=== PATIENT | male | born 1955 | race Caucasian/White ===

== ENCOUNTER 2019-06-04 08:18 | Outpatient (CLI) | payer MEDICARE, OTHER, SELFPAY ==
--- NOTE | 2019-06-04 | MR_ITS ---
WS: [id number] MRI of the lumbar spine with and without IV contrast, 06/04/2019 Clinical Data: POST LAMINECTOMY SYNDROME Comparison: None. Findings: The patient has had a posterior lumbar fusion at L4 and L5. There is a laminectomy at the L4-L5 level . No compression fractures are seen. The disc heights are normal. There is degenerative disc disease at L4-L5. The lower lumbar spinal cord ends posterior to L1. No abnormal contrast enhancement of any structure occurs. There is an incidental right renal cortical cyst. L1-L2: No canal stenosis, disc bulge or foraminal narrowing is seen. L2-L3: No canal stenosis, disc bulge or foraminal narrowing is seen. L3-L4: There is no disc bulge but there is facet joint hypertrophy causing mild foraminal stenosis. L4-L5: No canal stenosis, disc bulge or foraminal narrowing is seen. L5-S1: No canal stenosis, disc bulge or foraminal narrowing is seen. MR/MR lumbar spine wo/w con [id number] Impression: 1. Intact posterior fusion at L4-L5. 2. Minimal degenerative disc at L4-L5. 3. No abnormal contrast enhancement of any structure occurs.
--- NOTE | 2019-06-04 | MR_ITS ---
WS: [id number] MRI of the thoracic spine, 06/04/2019 Clinical Data: POST LAMINECTOMY Comparison: None. Findings: The disc heights are normal. There are no compression fractures. The thoracic spinal cord shows no cy sts, masses or abnormal signal. No evidence of any herniated disc or protrusion is seen. No compressi on fractures are noted. MR/MR thoracic spin wo con* [id number] Impression: Negative MRI of the thoracic spine.
--- NOTE | 2019-06-04 10:27 | XR_ITS ---
WS: [id number] Lumbar spine with flexion, extension, and neutral lateral, 06/04/2019 Clinical Data: POST LAMINECTOMY Comparison: MRI lumbar spine, 06/04/2019 Findings: No compression fractures or subluxation is seen. No disc space narrowing is seen. No limitation of motion or subluxation is seen. The patient is had posterior lumbar fusion at L4-L5 with disc spacers at L4-L5. Minimal anterior oste oarthritic change at L5 is present. The posterior lumbar fusion is intact and shows no change on flex ion or extension. XR/XR lumbar spine f/e only [id number] Impression: 1. Negative for limitation of motion or subluxation on flexion or extension. 2. Intact and stable posterior lumbar fusion at L4-L5
== END 2019-06-04 08:19 | disposition home or self-care (01) ==
LOC: RADWPI 08:26
PROVIDERS: Family Provider Internal Medicine; PCP Internal Medicine; Visit Provider Anesthesiology Pain Medicine
DX: M96.1 Postlaminectomy syndrome, not elsewhere classified (principal); M47.896 Other spondylosis, lumbar region; Z98.1 Arthrodesis status
CPT/HCPCS: 72120; 72146; 72158; A9579

== ENCOUNTER 2021-01-15 13:55 | Outpatient (CLI) | payer MEDICARE, OTHER, SELFPAY ==
[2021-01-15 14:50] LABS: Alanine Aminotransferase 29 U/L (0-41); Albumin Level 4.4 g/dL (3.5-5.2); Alkaline Phosphatase 61 IU/L (40-130); Globulin 2.5 g/dL (1.3-4.6); Total Bilirubin 0.8 mg/dL (0.15-1.2); Total Protein 6.9 g/dL (6.6-8.7)
[2021-01-15 20:16] LABS: Aspartate Amino Transferase 22 U/L (0-40)
== END 2021-01-15 13:56 | disposition home or self-care (01) ==
PROVIDERS: Visit Provider Anesthesiology Pain Medicine
DX: Z79.891 Long term (current) use of opiate analgesic (principal)
CPT/HCPCS: 36415; 80076

== ENCOUNTER 2021-11-27 13:58 | Outpatient (CLI) | payer OTHER, SELFPAY ==
--- NOTE | 2021-11-27 14:09 | CT_ITS ---
WS: [id number] CT HEAD TECHNIQUE: Noncontrast CT of the head obtained from the skullbase to the vertex. CLINICAL INFORMATION: DIZZINESS COMPARISON: CT September 26, 2017 DLP: 1155.[address] scans at [facility] use at least one of these dose optimization techniques: automated e xposure control; mA and/or kV adjustment per patient size (includes targeted exams where dose is matc hed to clinical indication); or iterative reconstruction. FINDINGS: No evidence of intracranial hemorrhage or mass effect. Ventricular system and basal cisterns are bernardo nt. Mild small vessel changes with mild parenchymal volume loss. No extra-axial fluid collections. No evidence of mass or mass effect. Cavernous carotid calcification. Paranasal sinuses and mastoid air cells are well aerated. .Normal visualized soft tissues. CT/CT head wo con* [id number] IMPRESSION: 1. No evidence of intracranial hemorrhage or mass effect. 2. Mild small vessel changes. Mild parenchymal volume loss. 3. No acute intracranial findings.
--- NOTE | 2021-11-27 14:09 | CT_ITS ---
WS: [id number] CTA THORACIC AORTA WITH AND WITHOUT CONTRAST. HISTORY: FOLLOW-UP THORACIC ANEURYSM TECHNIQUE: CT imaging of the thorax is performed with and without contrast. After noncontrast imaging is performed, CT angiogram is performed during injection of Omnipaque 350; 95 mL IV.. Sagittal and c oronal reconstructions, sagittal and coronal MIP imaging is submitted. All CT scans at [facility] use at least one of these dose optimization techniques: automated exposure control; mA and/or kV adjustment per patient size (includes targeted exams where dose is matched to clinical indication); or iterative reconstruction. DLP: 1306.54 mGy.cm COMPARISON: None available. Normal size thoracic aorta. Ascending aorta measures 3.2 cm. Very mild atherosclerotic plaque through the arch. Normal caliber descending aorta with a few scattered calcified plaques and intimal thicken ing. Normal appearance of the great vessels. LEFT common carotid artery arises from the base of the i nnominate. Normal size pulmonary artery. No pulmonary filling defects. Heart size is normal. No peric ardial or pleural effusions. 5 mm noncalcified nodule RIGHT upper lobe. No mediastinal or hilar adenopathy. Moderate size hiatal hernia. No adrenal mass. Visualized liver is negative. Degenerative disc disease at T7-8. Sclerotic changes within the adjacent vertebral body en dplates. CT/CT angio chest [id number] IMPRESSION: 1. No thoracic aortic aneurysm. 2. Normal size pulmonary artery. 3. Noncalcified 5 mm nodule RIGHT upper lobe. Recommend 12 month follow-up CT evaluation.
[2021-11-27 15:16] LABS: Blood Urea Nitrogen 20 mg/dL (8-23)
[2021-11-27] MEDS: iohexol 350 mg/mL 100 mL Btl IV (15:21)
--- NOTE | 2021-11-27 15:45 | USCV_ITS ---
Leon Tracey Age: 66 Gender: M : 1955 Exam Date: 11/27/2021 15:28 Ordering Phys: Shaye Siddiqui MD Technologist: CAROL Exam Location: [facility] [place] Indication: DIZZINESS Risk Factors: Previous Vascular Surgery: Right Brachial BP: / Left Brachial BP: / Right Left Velocity (cm/s) Spectral Plaque Velocity (cm/s) Spectral Plaque Syst/Diast Broadening Syst/Diast Broadening 57.20/ 20.40 Prox CCA / 93.20/ 31.80 Mid CCA 73.00 / 17.90 64.40/ 19.70 Distal CCA 66.00 / 24.90 77.40/ 21.70 Prox ICA 64.80 / 27.70 68.50/ 21.50 Mid ICA 48.60 / 25.10 46.90/ 18.40 Distal ICA 46.50 / 22.00 103.30 ECA 51.70 0.83 ICA/CCA 1.23 Vertebral 53.80/ 14.50 cm/s 43.80/ 16.00 cm/s Subclavian 143.3 103.0 0 0 CONCLUSIONS Right ICA stenosis <50%. Mild atheromatous plaque right carotid bulb/ICA. Left ICA stenosis <50%. Mild atheromatous plaque left carotid bulb/ICA. Normal antegrade Doppler flow noted in the right vertebral artery. Normal antegrade Doppler flow noted in the left vertebral artery. Nima Sosa MD (Electronically Signed) Final Date: 28 November 2021 13:21 S
== END 2021-11-27 13:59 | disposition home or self-care (01) ==
LOC: RAD 13:59
PROVIDERS: PCP Family Medicine; Visit Provider Family Medicine
DX: R42 Dizziness and giddiness (principal); I65.23 Occlusion and stenosis of bilateral carotid arteries
CPT/HCPCS: 70450; 71275; 82565; 84520; 93880

== ENCOUNTER 2022-07-12 16:46 | Outpatient (CLI) | payer OTHER, SELFPAY ==
--- NOTE | 2022-07-12 17:09 | CT_ITS ---
WS: [id number] CT chest w con* [id number] HISTORY: F/U LUNG NODULE TECHNIQUE: Axial imaging performed through the thorax. Coronal and sagittal reformats are submitted. All CT scans at [facility] use at least one of these dose optimization techniques: automated exposure control; mA and/or kV adjustment per patient size (includes targeted exams where dose is mat ched to clinical indication); or iterative reconstruction. CONTRAST: Omnipaque 350; 100 mL IV. DLP: 466.59 mGy.cm COMPARISON: 11/27/2021 Lungs and central airway: Mild hyperexpansion. No change in the 5 mm noncalcified RIGHT upper lobe pu lmonary nodule since 11/27/2021. No new pulmonary nodule or mass. No pneumonia. Pleura: Normal. No pleural effusion. Heart and pericardium: Normal size heart with no pericardial effusion. Mediastinum and amber: No mediastinum or hilar adenopathy. Vessels: Mild atherosclerosis aorta. No aneurysm. Normal size pulmonary artery. Chest wall and lower neck: No soft tissue masses. Upper abdomen: Small hiatal hernia. No adrenal mass. Osseous structures: Prior RIGHT shoulder arthroplasty. Moderate degenerative disc disease in the mid thoracic spine. CT/CT chest w con* [id number] IMPRESSION: 1. No change 5 mm noncalcified RIGHT upper lobe pulmonary nodule. Long-term ocasio rveillance recommended. Follow-up chest CT in 12 months. 2. Chronic emphysema. 3. Small hiatal hernia.
[2022-07-12 17:34] LABS: Blood Urea Nitrogen 17 mg/dL (8-23)
[2022-07-12 17:35] LABS: Glomerular Filtration Rate 60.8 mL/min (90-130)
[2022-07-12] MEDS: iohexol 350 mg/mL 100 mL Btl IV (17:45)
== END 2022-07-12 16:47 | disposition home or self-care (01) ==
LOC: RAD 16:52
PROVIDERS: PCP Family Medicine; Visit Provider Family Medicine
DX: R91.8 Other nonspecific abnormal finding of lung field (principal); J43.9 Emphysema, unspecified; K44.9 Diaphragmatic hernia without obstruction or gangrene
CPT/HCPCS: 71260; 82565; 84520; Q9967

== ENCOUNTER 2022-08-02 17:56 | Emergency (ER) | payer OTHER, SELFPAY ==
[2022-08-02 18:01] VITALS: BP 167/80; PULSE 70; RESP 14; TEMP 36.6; O2SAT 97; BMI 37.3
--- NOTE | 2022-08-02 18:02 | XRR_ITS ---
PROCEDURE INFORMATION: Exam: XR Chest Exam date and time: 08/02/2022 6:51 PM Age: 67 years old Clinical indication: Pain; Left-sided; Additional info: Cp TECHNIQUE: Imaging protocol: Radiologic exam of the chest. Views: 1 view. COMPARISON: CT chest w con* [id number] 07/12/2022 5:36 PM FINDINGS: Lungs: Unremarkable. No consolidation. Unchanged linear scarring/atelectasis left lung base. Pleural spaces: Unremarkable. No pleural effusion. No pneumothorax. Heart/Mediastinum: Unremarkable. No cardiomegaly. Bones/joints: No acute abnormality. Postoperative changes bilateral shoulders are noted. XR/XR chest 1V portable [id number] IMPRESSION: No acute findings.
[2022-08-02 18:20] LABS: Basophils % 0.3 %; Eosinophils # 0.3 10^3/uL (0.0-0.8); Hematocrit 47.9 % (42.0-52.0); Hemoglobin 16.2 g/dL (11.7-16.6); Lymphocytes # 1.9 10^3/uL (0.8-4.8); Lymphocytes % 29.6 %; Mean Corpuscular HGB Conc 33.8 g/dL (30.0-36.0); Mean Corpuscular Hemoglobin 31.2 pg (28.0-34.0); Mean Corpuscular Volume 92.3 fl (80-94); Mean Platelet Volume 9.7 fL (7.4-10.4); Monocytes # 0.5 10^3/uL (0.2-0.9); Monocytes % 7.6 %; Neutrophils # 3.73 10^3/uL (1.8-7.7); Neutrophils % 58.2 %; Nucleated Red Blood Cells % 0 %; Platelet Count 249 10^3/cmm (130-400); Red Blood Count 5.19 10^6/uL (4.1-5.3); Red Cell Distribution Width 11.7 % (12.1-15.1); White Blood Count 6.4 10^3/uL (4.0-10.0)
[2022-08-02] MEDS: aspirin 81 mg Chew Tablet 324 MG PO (18:24)
--- NOTE | 2022-08-02 18:28 | ED_ITS ---
HPI - Chest Pain General: Chief Complaint: Chest Pain Stated Complaint: chest pain Time Seen by Provider: 08/02/22 18:04 Source: patient Mode of arrival: ambulatory Limitations: no limitations History of Present Illness: 67-year-old male has a history of chronic pain he states been having left-sided chest and back pain for last 2 days he states its been chronic in nature and very sharp states it is worse with movement and palpation he denies any shortness of breath denies any nausea denies any diaphoresis states it is improved with rest. No history of heart disease. Associated symptoms: Deny abdominal pain, dyspnea, fever(s), nausea or vomiting Review of Systems Const: Denies: fever(s), chills, body aches or change in appetite Eyes: Denies: blurry vision or eye discomfort ENMT: Denies: throat pain or dental pain Card: Reports: chest pain Resp: Denies: dyspnea GI: Denies: abdominal pain, nausea, vomiting or diarrhea : Denies: dysuria Musc: Denies: neck pain or back pain Skin/Breast: Denies: rash Neuro: Denies: headache(s) Psych: Denies: depression Guille/Lymph: Denies: easy bruising All/Imm: Denies: urticaria PFSH ED PFSH: Medical History (Updated 08/02/22 @ 19:14 by Edwin Black MD) No pertinent past medical history Social History (Updated 08/02/22 @ 18:30 by Edwin Black MD) Substance/Drug Use: never Physical Exam Const: COMMON NORMALS: no acute distress, patient oriented x3 and healthy appearing HENMT: COMMON NORMALS: normocephalic and atraumatic HEAD & SCALP: normocephalic and atraumatic Eye: COMMON NORMALS: conjunctivae normal CONJUNCTIVA: Yes conjunctivae normal Neck/C-Spine: COMMON NORMALS: full ROM and supple Chest: COMMONS NORMALS: normal inspection of the chest OTHER: point tender over left chest reproduces pain Resp: COMMON NORMALS: normal respiratory effort, No retractions, No use of accessory muscles and clear to auscultation bilaterally AUSCULTATION: clear to auscultation bilaterally Cardio: COMMON NORMALS: regular rate, regular rhythm and No murmurs present (Cardio) RATE: regular rate RHYTHM: regular rhythm GI: COMMON NORMALS: Normal to inspection, nondistended, normoactive bowel sounds present, Soft to palpation, non-tender and no masses PALPATION: Yes Soft to palpation Extremity: COMMON NORMALS: normal to inspection and full ROM Neuro: COMMON NORMALS: patient oriented x3, moves all extremities and no focal motor deficits Psych: COMMON NORMALS: mental status grossly normal, Normal thought process present and cooperative THOUGHT PROCESS: Normal thought process present Skin: COMMON NORMALS: no rashes or lesions noted and no wounds GENERAL SKIN EXAM: no rashes or lesions noted Course Vital Signs: Vital signs: Vital Signs Temperature 98 F 08/02/22 18:01 Pulse Rate 70 08/02/22 18:38 Respiratory Rate 18 08/02/22 18:38 Blood Pressure 179/111 08/02/22 18:38 Pulse Oximetry 96 08/02/22 18:38 Oxygen Delivery Me thod Room Air 08/02/22 18:38 MDM - Chest Pain Medical Decision Making Patient presents here with chest wall pain likely is point tender on exam her troponin is normal no signs acute coronary syndrome no signs of pulmonary embolism or aortic dissection he is stable for discharge she is to follow-up with PCP and return if worsening. Differential Diagnosis Unlikely acute massive pulmonary embolism or acute myocardial infarction Lab Data 08/02/22 18:12 08/02/22 18:12 Laboratory Results WBC 6.4 10^3/uL (4.0-10.0) 08/02/22 18:12 RBC 5.19 10^6/uL (4.1-5.3) 08/02/22 18:12 Hgb 16.2 g/dL (11.7-16.6) 08/02/22 18:12 Hct 47.9 % (42.0-52.0) 08/02/22 18:12 MCV 92.3 fl (80-94) 08/02/22 18:12 MCH 31.2 pg (28.0-34.0) 08/02/22 18:12 MCHC 33.8 g/dL (30.0-36.0) 08/02/22 18:12 RDW 11.7 % (12.1-15.1) L 08/02/22 18:12 Plt Count 249 10^3/cmm (130-400) 08/02/22 18:12 MPV 9.7 fL (7.4-10.4) 08/02/22 18:12 Neut % (Auto) 58.2 % 08/02/22 18:12 Lymph % (Auto) 29.6 % 08/02/22 18:12 [place] % (Auto) 7.6 % 08/02/22 18:12 Eos % (Auto) 4.0 % 08/02/22 18:12 Baso % (Auto) 0.3 % 08/02/22 18:12 Neut # (Auto) 3.73 10^3/uL (1.8-7.7) 08/02/22 18:12 Lymph # (Auto) 1.9 10^3/uL (0.8-4.8) 08/02/22 18:12 [place] # (Auto) 0.5 10^3/uL (0.2-0.9) 08/02/22 18:12 Eos # (Auto) 0.3 10^3/uL (0.0-0.8) 08/02/22 18:12 Baso # (Auto) 0.0 10^3/uL (0.0-0.1) 08/02/22 18:12 Nucleated RBC % (auto) 0 % 08/02/22 18:12 Nucleated RBCs # 0.0 /100WBC 08/02/22 18:12 Sodium 141 mmol/L (136-145) 08/02/22 18:12 Potassium 3.9 mmol/L (3.5-5.1) 08/02/22 18:12 Chloride 104 mmol/L (98-107) 08/02/22 18:12 Carbon Dioxide 24 mmol/L (22-29) 08/02/22 18:12 Anion Gap 16.9 (5-19) 08/02/22 18:12 BUN 16 mg/dL (8-23) 08/02/22 18:12 Creatinine 0.9 mg/dL (0.7-1.2) 08/02/22 18:12 GFR Calculation 84.7 mL/min (90-130) L 08/02/22 18:12 Glucose 122 mg/dL (65-115) H 08/02/22 18:12 Calculated Osmolality 294 mOsm/kg (285-295) 08/02/22 18:12 Calcium 8.6 mg/dL (8.5-10.5) 08/02/22 18:12 Total Bilirubin 0.4 mg/dL (0.15-1.2) 08/02/22 18:12 AST 20 U/L (0-40) 08/02/22 18:12 ALT 28 U/L (0-41) 08/02/22 18:12 Alkaline Phosphatase 77 U/L (40-130) 08/02/22 18:12 Troponin T Baseline 6 ng/L (0-15) 08/02/22 18:12 Total Protein 7.1 g/dL (6.6-8.7) 08/02/22 18:12 Albumin 4.5 g/dL (3.5-5.2) 08/02/22 18:12 Globulin 2.6 g/dL (1.3-4.6) 08/02/22 18:12 EKG Data EKG 1: I personally reviewed and interpreted this EKG as follows: EKG interpretation date: 08/02/22 EKG interpretation time: 18:28 Interpretation: nsr hr [address] or t wave abnormalities q rs 100 qtc 410 Discharge Plan Discharge Patient Disposition: Home Clinical Impression: Chest pain Prescriptions: New methocarbamol 750 mg tablet 750 mg PO Q6H PRN (Reason: spasms) Qty: 20 0RF Naprosyn 500 mg tablet 500 mg PO BID PRN (Reason: pain) Qty: 20 0RF Discharge Orders: Discharge ED (Routine); Ordered 08/02/22 Ordered By: Edwin Black Referrals: Shaye Siddiqui MD [Primary Care Provider] - 1-3 days Discharge Diet: Advance as tolerated Discharge Activity: Resume usual activity Patient Instructions: Chest Pain (ED) Coding Level of Care Code 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
--- NOTE | 2022-08-02 18:28 | ECG_ITS ---
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 Measurements Intervals [place] Rate: 69 P: 30 NM: 180 QRS: 1 QRSD: 100 T: -15 QT: 391 QTc: 420 Interpretive Statements SINUS RHYTHM MODERATE ST DEPRESSION [0.05+ mV ST DEPRESSION] No previous ECG available for comparison Electronically Signed On 08-03-2022 16:35:03 CDT by Barbie Doyle M.D. [email or web address] medical [id number]
[2022-08-02] MEDS: ondansetron 2 mg/ML SDV 2 mL 4 MG IVP (18:30)
[2022-08-02] MEDS: morphine 4 mg/mL SDV 1 mL IVP (18:31)
[2022-08-02 18:35] VITALS: BP 179/111; PULSE 66; RESP 17; O2SAT 97
[2022-08-02 18:38] VITALS: BP 179/111; PULSE 70; RESP 18; O2SAT 96
[2022-08-02 18:46] LABS: Alanine Aminotransferase 28 U/L (0-41); Albumin Level 4.5 g/dL (3.5-5.2); Alkaline Phosphatase 77 U/L (40-130); Anion Gap 16.9 (5-19); Aspartate Amino Transferase 20 U/L (0-40); Blood Urea Nitrogen 16 mg/dL (8-23); Calcium 8.6 mg/dL (8.5-10.5); Carbon Dioxide 24 mmol/L (22-29); Chloride 104 mmol/L (98-107); Globulin 2.6 g/dL (1.3-4.6); Glomerular Filtration Rate 84.7 mL/min (90-130); Glucose 122 mg/dL (65-115); Osmolality Calculated 294 mOsm/kg (285-295); Potassium 3.9 mmol/L (3.5-5.1); Sodium 141 mmol/L (136-145); Total Bilirubin 0.4 mg/dL (0.15-1.2); Total Protein 7.1 g/dL (6.6-8.7)
[2022-08-02 18:48] LABS: Troponin(5th) Baseline 6 ng/L (0-15)
[2022-08-02 19:29] VITALS: BP 146/87; PULSE 65; RESP 20; O2SAT 90
== END 2022-08-02 19:30 | disposition home or self-care (01) ==
PROVIDERS: Emergency Provider Emergency Medicine; PCP Family Medicine
DX: R07.9 Chest pain, unspecified (principal)
CPT/HCPCS: 36415; 71045; 80053; 84484; 85025; 93005; 96374; 96375; 99285; J2270; J2405

== ENCOUNTER 2022-12-20 14:33 | Outpatient (CLI) | payer OTHER, SELFPAY ==
--- NOTE | 2022-12-20 | USCV_ITS ---
Leon Tracey Age: 67 Gender: M : 1955 Exam Date: 12/20/2022 14:57 Ordering Phys: Shaye Siddiqui MD Technologist: CAROL Exam Location: [facility] [place] Indication: Stenosis Risk Factors: Previous Vascular Surgery: Right Brachial BP: / Left Brachial BP: / Right Left Velocity (cm/s) Spectral Plaque Velocity (cm/s) Spectral Plaque Syst/Diast Broadening Syst/Diast Broadening 71.70/ 20.90 Prox CCA 99.40 / 28.00 71.70/ 22.10 Mid CCA 82.30 / 23.30 69.70/ 15.60 Distal CCA 102.50/ 24.30 56.90/ 15.60 Prox ICA 39.40 / 9.00 63.10/ 13.40 Mid ICA 56.70 / 21.40 46.90/ 18.40 Distal ICA 46.00 / 17.60 67.80 ECA 72.50 0.88 ICA/CCA 0.55 Antegrade Vertebral Antegrade 51.30/ 15.80 cm/s 40.10/ 10.10 cm/s Tri Subclavian Tri 160.0 117.0 0 0 FINDINGS Comparison:. 11/27/21 No significant elevation of systolic or diastolic velocities. Waveforms are normal. Minimal amount of calcified plaque or intimal thickening identified. CONCLUSIONS No change seen from prior study. Bilateral ICA stenosis less than 50%. Dr. Flores Miranda DO (Electronically Signed) Final Date: 23 December 2022 07:46 S
== END 2022-12-20 14:34 | disposition home or self-care (01) ==
LOC: RAD 14:35
PROVIDERS: PCP Family Medicine; Visit Provider Family Medicine
DX: I65.23 Occlusion and stenosis of bilateral carotid arteries (principal)
CPT/HCPCS: 93880

== ENCOUNTER 2023-02-20 08:25 | Outpatient (CLI) | payer OTHER, SELFPAY ==
--- NOTE | 2023-02-20 | MR_ITS ---
WS: [id number] MRI LUMBAR SPINE WITH AND WITHOUT CONTRAST. HISTORY: VERTEBROGENIC LOW BACK PAIN, pain down LEFT leg and hip. COMPARISON: 06/04/2019 TECHNIQUE: Sagittal and axial multisequence imaging is submitted. Postcontrast imaging 20 mL IV Multi Lee. Prior posterior lumbar fusion at L4-5. Alignment is normal. Disc spaces are mildly desiccated. Interbody spacer at L4-5. Conus terminates normally at L1-2 disc level. L1-L2: Mild facet arthritis. Very minimal foraminal narrowing. L2-L3: No stenosis. Mild facet arthritis. L3-L4: Central canal encroachment by ligamentum flavum and facet disease and mild foraminal stenosis. Mild central, bilateral subarticular recess and foraminal stenosis. Greatest encroachment is slight narrowing of the LEFT subarticular recess with mild disc contact on the LEFT traversing L4 nerve root . L4-L5: Mild central canal stenosis with facet joint arthritis. Mild osteophytic ridging. There is mil d to moderate bilateral foraminal stenosis with disc and/or osteophyte contact on the exiting L4 nerv e roots. There is also mild contact and encroachment upon the traversing L5 nerve roots. Tiny central disc protrusion is likely. L5-S1: Mild facet and ligamentum flavum arthritis. Slightly greater narrowing of the LEFT subarticula r recess. Mild RIGHT and mild to moderate LEFT foraminal stenosis. No discitis or osteomyelitis. IMPRESSION: 1. Prior posterior lumbar fusion with interbody spacer at L4-5. 2. L3-4: Mild central, bilateral subarticular recess and foraminal stenosis. Slightly greater encroac hment and narrowing of the LEFT subarticular recess with disc minimally contacting the LEFT traversin g L4 nerve root. 3. L4-5: Mild to moderate bilateral foraminal stenosis with disc and/or osteophyte contacting the exi ting L4 nerve roots. Mild contact and encroachment upon the traversing L5 nerve roots. Mild central s tenosis. 4. L5-S1: Mild to moderate LEFT foraminal stenosis and mild RIGHT foraminal stenosis. 5. No discitis or osteomyelitis.
--- NOTE | 2023-02-20 | MR_ITS ---
WS: [id number] MRI THORACIC SPINE noncontrast. HISTORY: THORACIC SPINE PAIN, chronic mid back pain. Pain down LEFT leg. COMPARISON: 06/04/2019 TECHNIQUE: Multiplanar sequences are performed in sagittal and axial planes. Tractor Engine Assembler survey reveals osteophyte disease encroaching upon the ventral cervical cord at C3-4. Disc spac es are narrowed in the cervical spine. Multiple small hemangiomas within the vertebral bodies. Significant progression of degenerative mark es in the vertebral bodies consistent with fatty replacement T7 and T8. There is disc encroachment up on the thoracic cord which will be defined at individual levels as described below. Disc spaces are n arrowed throughout the thoracic spine. There is been a progression of degenerative spondylitic change s. No cord signal abnormality appreciated. No syrinx. T1-2: Normal. T2-3: Bilateral facet arthritis with moderate foraminal stenosis. T3-4: Advanced facet arthritis with moderate foraminal stenosis. T4-5: Moderate facet arthritis with mild stenosis. T5-6: Mild foraminal stenosis and facet arthritis. T6-7: Small central disc protrusion does not contact the cord. Moderate bilateral facet arthritis and foraminal stenosis. T7-8: Osteophytic ridging, annular disc bulging and marked facet arthritis. Mild central with moderat e to severe foraminal stenosis. T8-9: Diffuse annular disc bulging with a central disc protrusion effacing ventral CSF. Severe ligame ntum flavum and facet arthritis. Severe bilateral foraminal stenosis with mild central stenosis. T9-10: Mild annular disc bulging with severe facet arthritis and foraminal stenosis. T10-11: Mild bilateral facet arthritis and stenosis. T11-12: Mild facet arthritis and mild foraminal stenosis. IMPRESSION: 1. Significant progression of degenerative spondylitic disease and stenoses in the thoracic spine sin ce 06/04/2019. 2. Progression of degenerative disc disease is most significant at T7-8 and T8-9 with fatty marrow re placement in T7 and T8. 3. T6-7: Shallow central disc protrusion nearly contacts the cord. Moderate bilateral facet arthritis and foraminal stenosis. 4. T7-8: Mild central with moderate to severe bilateral foraminal stenosis. 5. T8-9: Severe bilateral foraminal stenosis with mild central stenosis. Advanced facet disease. 6. T9-10 severe bilateral facet joint arthritis and foraminal stenosis. 7. Additional level of mild to moderate facet joint arthritis and foraminal stenoses as above.
[2023-02-20] MEDS: gadobenate dimeglumine 20 mL vial IV (10:16)
== END 2023-02-20 08:26 | disposition home or self-care (01) ==
LOC: RAD 08:25
PROVIDERS: PCP Family Medicine; Visit Provider Anesthesiology Pain Medicine
DX: M48.061 Spinal stenosis, lumbar region without neurogenic claudication (principal); Z98.1 Arthrodesis status
CPT/HCPCS: 72146; 72158; A9577

== ENCOUNTER → 2023-03-10 10:20 | Outpatient (BNVA) | payer OTHER, SELFPAY | PROVIDERS: PCP Family Medicine; Visit Provider Podiatrist Foot & Ankle Surgery | DX: M25.372 Other instability, left ankle; M19.172 Post-traumatic osteoarthritis, left ankle and foot; Q66.72 Congenital pes cavus, left foot; Q66.71 Congenital pes cavus, right foot; Q66.89 Other specified congenital deformities of feet; L60.3 Nail dystrophy; L85.3 Xerosis cutis; Q66.221 Congenital metatarsus adductus, right foot; Q66.222 Congenital metatarsus adductus, left foot | CPT/HCPCS: 73630; 99204 ==

== ENCOUNTER → 2023-05-08 10:54 | Outpatient (BNVA) | payer OTHER, SELFPAY | PROVIDERS: PCP Family Medicine; Visit Provider Podiatrist Foot & Ankle Surgery | DX: L60.0 Ingrowing nail (principal) | CPT/HCPCS: 11750 ==

== ENCOUNTER → 2023-05-22 10:25 | Outpatient (BNVA) | payer OTHER, SELFPAY | PROVIDERS: PCP Family Medicine; Visit Provider Podiatrist Foot & Ankle Surgery | DX: L60.0 Ingrowing nail (principal) | CPT/HCPCS: 99213 ==

== ENCOUNTER 2023-05-28 19:10 | Emergency (ER) | payer OTHER, SELFPAY ==
[2023-05-28 19:22] VITALS: BP 214/89; PULSE 82; RESP 14; TEMP 36.7; O2SAT 98
--- NOTE | 2023-05-28 20:00 | CTR_ITS ---
PROCEDURE INFORMATION: Exam: CT Chest Without Contrast; Diagnostic Exam date and time: 05/28/2023 8:12 PM Age: 68 years old Clinical indication: Abdominal tenderness; Cough; Prior surgery; Surgery date: 6+ months; Surgery type: RT shoulder. L-spine; Additional info: Cough abdominal pain TECHNIQUE: Imaging protocol: Diagnostic computed tomography of the chest without contrast. Sagittal and coronal reformatted images were created and reviewed. Radiation optimization: All CT scans at this facility use at least one of these dose optimization techniques: automated exposure control; mA and/or kV adjustment per patient size (includes targeted exams where dose is matched to clinical indication); or iterative reconstruction. COMPARISON: 1. CT chest w con* [id number] 07/12/2022 5:[address] angio chest [id number] 11/27/2021 2:54 PM RADIATION DOSE METRICS: Total DLP (mGy-cm): 1286 FINDINGS: Limitations: Evaluation of the mediastinum and vasculature is limited without intravenous contrast. Trachea: Tracheobronchial structures are patent. Lungs: Lungs are clear bilaterally. Mild centrilobular emphysematous changes in the upper lobes. Noncalcified nodule in the right upper lobe with an average measurement of 5 mm, stable compared with 11/27/2021 (series 3, image 23). Pleural spaces: No pneumothorax. No pleural effusion. Heart: The heart is normal in size. Coronary arteries: Stable mild atherosclerotic calcification in the coronary arteries. Esophagus: The esophagus is unremarkable. Mediastinal space: No mediastinal hematoma. No pneumomediastinum. Lymph nodes: No lymphadenopathy. Vasculature: Stable mild atherosclerotic changes in the visualized arteries. No evidence for aortic aneurysm. Pulmonary arteries are unremarkable. Pulmonary veins are unremarkable. Bones/joints: Patient has had a right shoulder hemiarthroplasty. [id number] degenerative changes of the left shoulder. Patient has had a previous left rotator cuff repair. [id number]-[id number] multilevel degenerative changes in the visualized spine. Soft tissues: No acute abnormality in the extrathoracic soft tissues. which no further follow-up is recommended. (Reference: Zoë) 3. Incidental/nonacute findings are listed in the report. COMMENTS: The presence of pulmonary emphysema on CT is an independent risk factor for lung cancer. In the absence of a history or active diagnosis of lung cancer, it is recommended that this patient with emphysema be evaluated for enrollment in a low dose CT lung cancer screening program. REFERENCES: Zoë Francis et al. Guidelines for Management of Incidental Pulmonary Nodules Detected on CT Images: From the Fleischner Society 2017. Radiology. 2017;284(1):228-243. PROCEDURE INFORMATION: Exam: CT Abdomen And Pelvis Without Contrast Exam date and time: 05/28/2023 8:12 PM Age: 68 years old Clinical indication: Abdominal tenderness; Cough; Prior surgery; Surgery date: 6+ months; Surgery type: RT shoulder. L-spine; Additional info: Cough abdominal pain TECHNIQUE: Imaging protocol: Computed tomography of the abdomen and pelvis without contrast. Sagittal and coronal reformatted images were created and reviewed. Radiation optimization: All CT scans at this facility use at least one of these dose optimization techniques: automated exposure control; mA and/or kV adjustment per patient size (includes targeted exams where dose is matched to clinical indication); or iterative reconstruction. COMPARISON: No relevant prior studies available. RADIATION DOSE METRICS: Total DLP (mGy-cm): 1286 FINDINGS: Limitations: Evaluation of solid organs and vasculature is limited without intravenous contrast. Liver: The liver is unremarkable. Gallbladder and bile ducts: The gallbladder is unremarkable. No biliary ductal dilatation. Pancreas: The pancreas is unremarkable. No pancreatic ductal dilatation. Spleen: The spleen is unremarkable. Adrenal glands: The right and left adrenal glands are unremarkable. Kidneys and ureters: The right and left kidneys are unremarkable. The right and left ureters are unremarkable. Stomach and bowel: Numerous diverticula in the sigmoid colon. No evidence for diverticulitis. No acute abnormality in the small bowel. No acute abnormality in the stomach. Appendix: The appendix is visualized and is unremarkable. No findings to suggest acute appendicitis. Intraperitoneal space: No free intraperitoneal air. No ascites. No loculated fluid collections to suggest an abscess. Vasculature: Mild atherosclerotic changes in the visualized arteries. No evidence for aortic aneurysm. Lymph nodes: No lymphadenopathy. Urinary bladder: The bladder is unremarkable. Reproductive: Unremarkable as visualized. Bones/joints: Mild degenerative changes at both the right and left hips. Mild degenerative changes of the right and left sacroiliac joints. Bone island in the left femoral head. The patient has had a previous L4-L5 fusion and L4 laminectomy. There is lucency around the right L5 transpedicular screw concerning for loosening. Multilevel foraminal stenosis of varying severity in the lumbar spine. Soft tissues: No acute abnormality in the extra-abdominal soft tissues. CT/[place] [id number] IMPRESSION: 1. No acute cardiopulmonary process. 2. Noncalcified nodule in the right upper lobe with an average measurement of 5 mm, stable compared with 11/27/2021. Stable pulmonary nodule(s) for IMPRESSION: 1. No acute abnormality in the abdomen or pelvis. 2. Sigmoid diverticulosis. No evidence for diverticulitis. 3. The patient has had a previous L4-L5 fusion and L4 laminectomy. There is lucency around the right L5 transpedicular screw concerning for loosening. Recommend clinical correlation. 4. Incidental/nonacute findings are listed in the report.
--- NOTE | 2023-05-28 20:00 | XRR_ITS ---
PROCEDURE INFORMATION: Exam: XR Chest Exam date and time: 05/28/2023 8:56 PM Age: 68 years old Clinical indication: Cough TECHNIQUE: Imaging protocol: Radiologic exam of the chest. Views: 1 view. COMPARISON: [place] [id number] 05/28/2023 8:12 PM FINDINGS: Lungs: Lungs are clear bilaterally. Pleural spaces: No pleural effusion. No pneumothorax. Heart/Mediastinum: Stable mild enlargement of the cardiac silhouette. Mediastinal contours are unremarkable. Bones/joints: Patient has had a previous right shoulder hemiarthroplasty. XR/XR chest 1V portable [id number] IMPRESSION: 1. No acute cardiopulmonary process. 2. Incidental/nonacute findings are listed in the report.
[2023-05-28 20:25] VITALS: PULSE 84; O2SAT 95
[2023-05-28 20:27] LABS: Basophils % 0.4 %; Eosinophils # 0.3 10^3/uL (0.0-0.8); Eosinophils % 4.6 %; Hematocrit 44.3 % (37-53); Lymphocytes # 1.9 10^3/uL (0.8-4.8); Lymphocytes % 35.9 %; Mean Corpuscular HGB Conc 34.8 g/dL (30-55); Mean Corpuscular Hemoglobin 31.6 pg (27-33); Mean Corpuscular Volume 90.8 fl (82-101); Mean Platelet Volume 9.4 fL (7.4-10.4); Monocytes # 0.6 10^3/uL (0.2-0.9); Monocytes % 10.4 %; Neutrophils # 2.59 10^3/uL (1.8-7.7); Neutrophils % 48.1 %; Nucleated Red Blood Cells % 0 %; Platelet Count 256 10^3/cmm (157-399); Red Blood Count 4.88 10^6/uL (3.85-5.65); Red Cell Distribution Width 11.8 % (12.1-15.1); White Blood Count 5.38 10^3/uL (3.29-11.43)
[2023-05-28 20:29] LABS: Alanine Aminotransferase 30 U/L (0-41); Albumin Level 4.6 g/dL (3.5-5.2); Alkaline Phosphatase 67 U/L (40-130); Anion Gap 14.2 (5-19); Aspartate Amino Transferase 21 U/L (0-40); Blood Urea Nitrogen 19 mg/dL (8-23); Calcium 9.2 mg/dL (8.5-10.5); Carbon Dioxide 25 mmol/L (22-29); Chloride 105 mmol/L (98-107); Globulin 2.7 g/dL (1.3-4.6); Glomerular Filtration Rate 84.4 mL/min (90-130); Glucose 94 mg/dL (65-115); Lipase 28 U/L (13-60); Osmolality Calculated 292 mOsm/kg (285-295); Potassium 4.2 mmol/L (3.5-5.1); Sodium 140 mmol/L (136-145); Total Bilirubin 0.6 mg/dL (0.15-1.2); Total Protein 7.3 g/dL (6.6-8.7)
[2023-05-28 20:31] LABS: Add Urine Culture? No; Add Urine Microscopic? YES; Bacteria Urine TRACE /hpf; Bilirubin Urine Neg (Negative); Blood Urine Neg (Negative); Glucose Urine UA Norm (Normal); Ketones Urine Negative (Negative); Leukocyte Esterase Urine Negative (Negative); Mucus Urine TRACE /hpf; Nitrate Urine Negative (Negative); Protein Urine Trace (Negative); Specific Gravity, Urine 1.015 (1.005-1.030); Urine Appearance Clear (CLEAR); Urine Color Yellow (Yellow); Urobilinogen Urine Neg (Negative); pH Urine 6 (5-7)
--- NOTE | 2023-05-28 20:47 | W.ED.ABDPA2 ---
HPI - Abdominal Pain General: Chief Complaint: Abdominal Pain Stated Complaint: pain pressure under right breast has anyorism Time Seen by Provider: 05/28/23 19:59 History of Present Illness: 68-year-old male male with a history of chronic pain who presents with 6-month history of progressively worsening left upper quadrant abdominal pain. Pain is worse when he tries to lay down. He states he has tried taking antacids without improvement. It is not affected by eating. Is not affected by taking deep breaths or exertion. He states he is on hydromorphone and oxycodone which she alternates and that controls this pain but he keeps getting this abdominal pain back. He has a known abdominal aortic aneurysm. [facility] for [facility] to be [facility]. Associated Symptoms: Reports diarrhea (Chronic); Denies chills, constipation, fever(s), nausea and vomiting Review of Systems Const: Denies: fever(s), chills or body aches Card: Denies: chest pain or palpitations Resp: Reports: dyspnea (Chronic due to COPD) and wheezing (Chronic); Denies: productive cough GI: Reports: abdominal pain and diarrhea (Chronic); Denies: nausea, vomiting or constipation Musc: Reports: back pain, extremity pain and joint pain PFS ED PFSH: Medical History No pertinent past medical history Social History Substance/Drug Use: never Physical Exam Const: OTHER: Well-developed well-nourished male in no acute distress HENMT: OTHER: Mucous membranes are moist Eye: OTHER: Pupils are equal, no scleral icterus, conjunctiva normal Neck/C-Spine: OTHER: Trachea is midline Chest: OTHER: No chest wall tenderness Resp: OTHER: Lungs are clear bilaterally Cardio: OTHER: Heart regular rate and rhythm GI: OTHER: Abdomen soft, mild tenderness in the left upper quadrant, no rebound or guarding. No pulsatile aortic mass palpable Extremity: OTHER: Significant edema Course Vital Signs: Vital signs: Vital Signs Temperature 98.1 F 05/28/23 19:22 Pulse Rate 71 05/28/23 21:30 Respiratory Rate 18 05/28/23 21:30 Blood Pressure 168/96 05/28/23 21:30 Pulse Oximetry 92 05/28/23 21:30 Oxygen Delivery Me thod Room Air 05/28/23 21:00 MDM - Abdominal Pain Medical Decision Making 68-year-old male with left upper quadrant abdominal pain. Will obtain labs, place an IV and obtain a CT of his chest, abdomen and pelvis due to history of cough and abdominal pain and aortic aneurysm. Medical Records I reviewed the patient's medical records. Lab Data Patient has a normal white blood cell count of 5.38. Hemoglobin stable at 15.4. His low electrolytes are normal. Glucose 94, BUN 19, creatinine 0.9. LFTs are normal. Lipase is normal at 28. Urinalysis is negative for UTI. 05/28/23 20:06 05/28/23 20:06 Labs/Radiology: Radiology Impressions Chest X-Ray 05/28/23 20:00 IMPRESSION: 1. No acute cardiopulmonary process. 2. Incidental/nonacute findings are listed in the report. Chest/Abdomen/Pelvis CT 05/28/23 20:00 IMPRESSION: 1. No acute cardiopulmonary process. 2. Noncalcified nodule in the right upper lobe with an average measurement of 5 mm, stable compared with 11/27/2021. Stable pulmonary nodule(s) for IMPRESSION: 1. No acute abnormality in the abdomen or pelvis. 2. Sigmoid diverticulosis. No evidence for diverticulitis. 3. The patient has had a previous L4-L5 fusion and L4 laminectomy. There is lucency around the right L5 transpedicular screw concerning for loosening. Recommend clinical correlation. 4. Incidental/nonacute findings are listed in the report. Laboratory Results WBC 5.38 10^3/uL (3.29-11.43) 05/28/23 20: RBC 4.88 10^6/uL (3.85-5.65) 05/28/23 20: Hgb 15.40 g/dL (11.27-16.99) 05/28/23 20: Hct 44.3 % (37-53) 05/28/23 20: MCV 90.8 fl (82-101) 05/28/23 20: MCH 31.6 pg (27-33) 05/28/23 20: MCHC 34.8 g/dL (30-55) 05/28/23 20:06 RDW 11.8 % (12.1-15.1) L 05/28/23 20:06 Plt Count 256 10^3/cmm (157-399) 05/28/23 20:06 MPV 9.4 fL (7.4-10.4) 05/28/23 20:06 Neut % (Auto) 48.1 % 05/28/23 20:06 Lymph % (Auto) 35.9 % 05/28/23 20:06 [place] % (Auto) 10.4 % 05/28/23 20:06 Eos % (Auto) 4.6 % 05/28/23 20:06 Baso % (Auto) 0.4 % 05/28/23 20:06 Neut # (Auto) 2.59 10^3/uL (1.8-7.7) 05/28/23 20:06 Lymph # (Auto) 1.9 10^3/uL (0.8-4.8) 05/28/23 20:06 [place] # (Auto) 0.6 10^3/uL (0.2-0.9) 05/28/23 20:06 Eos # (Auto) 0.3 10^3/uL (0.0-0.8) 05/28/23 20:06 Baso # (Auto) 0.0 10^3/uL (0.0-0.1) 05/28/23 20:06 Nucleated RBC % (auto) 0 % 05/28/23 20:06 Nucleated RBCs # 0.0 /100WBC 05/28/23 20:06 Sodium 140 mmol/L (136-145) 05/28/23 20:06 Potassium 4.2 mmol/L (3.5-5.1) 05/28/23 20:06 Chloride 105 mmol/L (98-107) 05/28/23 20:06 Carbon Dioxide 25 mmol/L (22-29) 05/28/23 20:06 Anion Gap 14.2 (5-19) 05/28/23 20:06 BUN 19 mg/dL (8-23) 05/28/23 20:06 Creatinine 0.9 mg/dL (0.7-1.2) 05/28/23 20:06 GFR Calculation 84.4 mL/min (90-130) L 05/28/23 20:06 Glucose 94 mg/dL (65-115) 05/28/23 20:06 Calculated Osmolality 292 mOsm/kg (285-295) 05/28/23 20:06 Calcium 9.2 mg/dL (8.5-10.5) 05/28/23 20:06 Total Bilirubin 0.6 mg/dL (0.15-1.2) 05/28/23 20:06 AST 21 U/L (0-40) 05/28/23 20:06 ALT 30 U/L (0-41) 05/28/23 20:06 Alkaline Phosphatase 67 U/L (40-130) 05/28/23 20:06 Total Protein 7.3 g/dL (6.6-8.7) 05/28/23 20:06 Albumin 4.6 g/dL (3.5-5.2) 05/28/23 20:06 Globulin 2.7 g/dL (1.3-4.6) 05/28/23 20:06 Lipase 28 U/L (13-60) 05/28/23 20:06 Urine Color Yellow (Yellow) 05/28/23 19:28 Urine Appearance Clear (CLEAR) 05/28/23 19:28 Urine pH 6 (5-7) 05/28/23 19:28 Ur Specific [place] 1.015 (1.005-1.030) 05/28/23 19:28 Urine Protein Trace (Negative) 05/28/23 19:28 Urine Glucose (UA) Norm (Normal) 05/28/23 19:28 Urine Ketones Negative (Negative) 05/28/23 19: Urine Blood Neg (Negative) 05/28/23 19:28 Urine Nitrate Negative (Negative) 05/28/23 19:28 Urine Bilirubin Neg (Negative) 05/28/23 19:28 Urine Urobilinogen Neg mg/dL (Negative) 05/28/23 19:28 Ur Leukocyte Esterase Negative (Negative) 05/28/23 19: Urine RBC None /hpf (0-2) 05/28/23 19:28 Urine WBC None /hpf (0-5) 05/28/23 19:28 Ur Squamous Epith Cells None /hpf (0-5) 05/28/23 19:28 Amorphous Sediment Not Reportable 05/28/23 19:28 Urine Bacteria Trace /hpf (NONE) 05/28/23 19:28 Urine Mucus Trace /hpf 05/28/23 19:28 CT of the abdomen and pelvis is negative for acute findings. Given the patient takes significant amount of ibuprofen and aspirin, suspect that this could be gastritis versus peptic ulcer disease. Will have him start omeprazole daily. He is already scheduled for an EGD in the near future. I encouraged him to keep that appointment. He has been instructed to return if his symptoms worsen. All radiology interpretation(s) finalized by discharge ED provider radiology interpretation(s): CT of the abdomen and pelvis is negative for acute pathology per the radiologist. Discharge Plan Discharge Clinical Impression: Abdominal pain, Gastritis Condition: Stable Prescriptions: No Action oxycodone 10 mg tablet 10 mg PO BID hydromorphone 4 mg tablet 4 mg PO TID diclofenac sodium 1 % gel 2 g topical BID ammonium lactate 12 % lotion 1 applic topical BID Qty: 400 3RF Rx Instructions: Apply to feet for dry skin (DME) AFO to left See Rx Instructions .Route .MEDSUPPLY Qty: 1 0RF Rx Instructions: [facility] directed by [facility] [place] silver sulfadiazine [Silvadene] 1 % cream 1 applic topical BID Qty: 50 0RF Rx Instructions: apply a 1.5 mm thickness cephalexin 500 mg capsule 500 mg PO BID Qty: 14 0RF methocarbamol 750 mg tablet 750 mg PO Q6H PRN (Reason: spasms) Qty: 20 0RF Naprosyn 500 mg tablet 500 mg PO BID PRN (Reason: pain) Qty: 20 0RF Discharge Orders: Discharge ED (Routine); Ordered 05/28/23 Ordered By: Jacqui Marino Referrals: Shaye Siddiqui MD [Primary Care Provider] - Discharge Diet: Advance as tolerated Discharge Activity: Resume usual activity Patient Instructions: Abdominal Pain (ED) Activity Restrictions/Additional Instructions: Avoid greasy or spicy foods. Try to limit your ibuprofen is much as possible. Take omeprazole daily at bedtime. Return if you have increased pain or worsening symptoms. Follow-up as scheduled for your upper endoscopy. 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
[2023-05-28 21:00] VITALS: PULSE 87; O2SAT 93
[2023-05-28 21:30] VITALS: BP 168/96; PULSE 71; RESP 18; O2SAT 92
[2023-05-28 21:50] VITALS: BP 171/93; PULSE 72; O2SAT 92
== END 2023-05-28 21:52 | disposition home or self-care (01) ==
PROVIDERS: Emergency Provider Emergency Medicine; PCP Family Medicine
DX: K29.70 Gastritis, unspecified, without bleeding (principal)
CPT/HCPCS: 71045; 71250; 74176; 80053; 81001; 83690; 85025; 99284

== ENCOUNTER → 2023-06-04 11:09 | Outpatient (BNVA) | payer OTHER, SELFPAY | PROVIDERS: PCP Family Medicine; Referring Provider Family Medicine; Visit Provider Surgery | DX: K22.70 Barrett's esophagus without dysplasia (principal) | CPT/HCPCS: 99203 ==

== ENCOUNTER 2023-06-19 08:55 | Day surgery (SDC) | payer OTHER, SELFPAY ==
--- NOTE | 2023-06-19 08:38 | W.PM.OPSFHP ---
Same Day Surgery H&P Indication for Procedure/HPI DATE OF PROCEDURE: June 19, 2023 CHIEF COMPLAINT/INDICATIONFOR SURGICAL PROCEDURE: history of joe's PREOP DIAGNOSIS: history of joe's PLANNED PROCEDURE: Operation Date: 06/19/23 10:05 Pro[place] Procedures p 01486 egd K22.70(Not Applicable) - Ata Lomax MD Medications/Allergies* Home Medications Medication Instructions Recorded Confirmed Type diclofenac sodium 1 % topical gel 2 g topical BID PRN Muscle Pain 03/10/23 06/17/23 History hydromorphone 4 mg tablet 4 mg PO TID 03/10/23 06/17/23 History oxycodone 10 mg tablet 10 mg PO BID 03/10/23 06/17/23 History clopidogrel 75 mg tablet (Plavix) 75 mg PO DAILY 06/04/23 06/17/23 History atenolol 100 mg tablet 100 mg PO BEDTIME 06/17/23 06/18/23 History Allergies/Adverse Reactions Allergy/AdvReac Type Severity Reaction Status Date / Time Grpcgan-RHG-LtV Reductase Allergy Unknown Verified 06/04/23 11:21 Inhibitor Pertinent History/Comorbid Conditions* Medical History (Updated 06/05/23 @ 00:00 by LAVERNE Steve) No pertinent past medical history Social History Substance/Drug Use: never Pertinent Exam Findings alert, oriented x 3 and clear to auscultation bilaterally Recommendations Surgery/Procedure today Coding Level of Care Code Acute Code for Wang Cyril
[2023-06-19 09:09] VITALS: BMI 37.3
[2023-06-19 09:10] VITALS: BP 136/79; PULSE 58; RESP 18; TEMP 36.2; O2SAT 95
[2023-06-19] MEDS: sodium chloride 0.9% 1,000 ML 30 ML IV (09:13)
--- NOTE | 2023-06-19 09:18 | ANES.PREANE2 ---
Pre-Anesthetic Assessment Height/Weight: Height 1.78 m Weight 117.934 kg Temp Pulse Resp BP Pulse Ox O2 Del Method 97.2 F L 58 L 18 136/79 95 Room Air 06/19/23 09:10 06/19/23 09:10 06/19/23 09:10 06/19/23 09:10 06/19/23 09:10 06/19/23 09:10 Preop Diagnosis: history of joe's Operation Date: 06/19/23 10:05 Proposed Procedures p 96577 egd K22.70(Not Applicable) - Ata Lomax MD Familial anesthetic complications: None Was Beta Ciera taken within 24 hours: Yes Was Clonidine taken within 24 hours: N/A Last intake: Intake Last Liquid Date 06/18/23 Last Liquid Time 21:00 Last Solid Date 06/18/23 Social No alcohol and No tobacco Previous smoker, quit years ago Exam alert, oriented x 3 and clear to auscultation bilaterally Airway Submandibular: within normal limits Mallampati: Class II Dentition: full History/ROS No significant history except as noted Pulmonary Chronic Obstructive Pulmonary Disease and Sleep Apnea CV/HEM Hypertension None reported Hepatic None reported GI Hx Orozco's esophagus Metabolic Thyroid Disease Musc/skel Lower Back Pain Neuropsych None reported Anesthetic Plan ASA status: 3 Anesthesia: Anesthesia Evaluation and MAC Risk of > 500 ml blood loss (7ml/kg in children): No Medications/Allergies Home Medications Medication Instructions Recorded Confirmed Last Taken Type methocarbamol 750 mg tablet 750 mg PO Q6H PRN spasms #20 tabs 08/02/22 06/17/23 06/17/23 Rx ammonium lactate 12 % lotion 1 applic topical BID #400 grams 03/10/23 06/17/23 06/10/23 Rx diclofenac sodium 1 % topical gel 2 g topical BID PRN Muscle Pain 03/10/23 06/17/23 06/15/23 History hydromorphone 4 mg tablet 4 mg PO TID 03/10/23 06/17/23 06/17/23 History oxycodone 10 mg tablet 10 mg PO BID 03/10/23 06/17/23 06/19/23 History AFO to left #1 ea 03/18/23 06/17/23 Unknown Rx clopidogrel 75 mg tablet (Plavix) 75 mg PO DAILY 02/06/17/23 06/10/23 History atenolol 100 mg tablet 100 mg PO BEDTIME 06/17/23 06/18/23 06/18/23 History Allergies Allergy/AdvReac Type Severity Reaction Status Date / Time Ilhslms-DRB-FvW Reductase Allergy Unknown Verified 06/19/23 09:14 Inhibitor Current Medications Generic Name Dose Route Start Last Admin Trade Name Freq PRN Reason Stop Dose Admin Sodium Chloride 1,000 mls @ 30 mls/hr 06/19/23 09:15 06/19/23 09:13 Sodium Chloride 0.9% IV 06/20/23 09:14 30 mls/hr .Q24H MARYBEL Administration PFSH Anesthesia Medical History No pertinent past medical history Social History Substance/Drug Use: never Data Anesthesia Cardiac Studies: No Data to Display
[2023-06-19 10:05] VITALS: BP 105/74; PULSE 57; RESP 14; TEMP 36.1; O2SAT 98
[2023-06-19 10:20] VITALS: BP 113/62; PULSE 63; RESP 16; O2SAT 94
--- NOTE | 2023-06-19 10:50 | ANE.PACU2 ---
Inpatient post-anesthesia follow up: Airway intact: Yes Vital signs: Temperature 97.0 F Pulse Rate 63 Respiratory Rate 16 Blood Pressure 113/62 Pulse Oximetry 94 Oxygen Delivery Me thod Room Air Oxygen Flow Rate Fraction of Inspir ed Oxygen Hydration adequate: Yes Nausea and vomiting: No Pain level: 1 Mental status: Baseline
== END 2023-06-19 10:50 | disposition home or self-care (01) ==
PROVIDERS: PCP Family Medicine; Visit Provider Surgery
PROC: 0DJ08ZZ Inspection of Upper Intestinal Tract, Via Natural or Artificial Opening Endoscopic (ICD-10-PCS; CPT 43235; principal; 2023-06-19 10:05)
DX: K22.70 Barrett's esophagus without dysplasia (principal); K29.80 Duodenitis without bleeding; J44.9 Chronic obstructive pulmonary disease, unspecified; G47.30 Sleep apnea, unspecified; I10 Essential (primary) hypertension
CPT/HCPCS: 43239; 88305; 88342; J2704; J7030

== ENCOUNTER → 2023-07-09 08:19 | Outpatient (BNVA) | payer OTHER, SELFPAY | PROVIDERS: PCP Family Medicine; Visit Provider Surgery | DX: Z09 Encounter for follow-up examination after completed treatment for conditions other than malignant neoplasm (principal) | CPT/HCPCS: 99213 ==

== ENCOUNTER 2023-09-12 14:01 | Outpatient (CLI) | payer OTHER, SELFPAY ==
--- NOTE | 2023-09-12 14:06 | CTR_ITS ---
PROCEDURE INFORMATION: Exam: CT Chest With Contrast; Diagnostic Exam date and time: 09/12/2023 3:43 PM Age: 68 years old Clinical indication: Abnormal findings; Abnormal radiologic exam of lung or chest; Additional info: Follow up nodule TECHNIQUE: Imaging protocol: Diagnostic computed tomography of the chest with contrast. Radiation optimization: All CT scans at this facility use at least one of these dose optimization techniques: automated exposure control; mA and/or kV adjustment per patient size (includes targeted exams where dose is matched to clinical indication); or iterative reconstruction. Contrast material: OMNI 350; Contrast volume: 95 ml; Contrast route: INTRAVENOUS (IV); COMPARISON: 1[place] [id number] 05/28/2023 8:[address] chest w con* [id number] 07/12/2022 5:[address] angio chest [id number] 11/27/2021 2:54 PM RADIATION DOSE METRICS: Total DLP (mGy-cm): 627.62 FINDINGS: Lungs: There are changes of centrilobular emphysema, mild with an upper lobe predominance not significantly changed from previous. 4 mm sized noncalcified pulmonary nodule right upper lobe (series 4, image number 26) is unchanged since 07/12/2022 or 11/27/2021. There is also 3 mm 2.5 mm sized nodule posterior right lower lobe image number 43 also unchanged. No further evaluation necessary. No acute pulmonary infiltrate is identified. There is right shoulder replacement unchanged from previous. Pleural spaces: Unremarkable. No pneumothorax. No pleural effusion. Heart: Heart is within normal limits of size. Lymph nodes: There is no evidence of lymphadenopathy. Vasculature: There is no thoracic aortic aneurysm or dissection. Bones/joints: Mild degenerative changes are seen in the midthoracic spine. There is no evidence of acute fracture. Soft tissues: Unremarkable. CT/CT chest w con* [id number] IMPRESSION: 1. Mild emphysema. 2. Stable small pulmonary nodules for which no further follow-up or evaluation is required. 3. No acute finding. COMMENTS: The presence of pulmonary emphysema on CT is an independent risk factor for lung cancer. In the absence of a history or active diagnosis of lung cancer, it is recommended that this patient with emphysema be evaluated for enrollment in a low dose CT lung cancer screening program.
[2023-09-12 15:38] LABS: Blood Urea Nitrogen 20 mg/dL (8-23); Glomerular Filtration Rate 74.8 mL/min (90-130)
[2023-09-12] MEDS: iohexol 350 mg/mL 500 mL Btl (per mL) IV (15:49)
== END 2023-09-12 14:02 | disposition home or self-care (01) ==
LOC: RAD 14:02
PROVIDERS: PCP Family Medicine; Visit Provider Family Medicine
DX: R91.8 Other nonspecific abnormal finding of lung field (principal)
CPT/HCPCS: 71260; 82565; 84520; Q9967

== ENCOUNTER → 2023-09-15 10:44 | Outpatient (BNVA) | payer OTHER, SELFPAY | PROVIDERS: PCP Family Medicine; Visit Provider Podiatrist Foot & Ankle Surgery | DX: Q66.89 Other specified congenital deformities of feet (principal); L60.3 Nail dystrophy; L85.3 Xerosis cutis; Q66.221 Congenital metatarsus adductus, right foot; Q66.222 Congenital metatarsus adductus, left foot; M25.372 Other instability, left ankle; M19.172 Post-traumatic osteoarthritis, left ankle and foot; M25.371 Other instability, right ankle; Q66.71 Congenital pes cavus, right foot; Q66.72 Congenital pes cavus, left foot | CPT/HCPCS: 99213 ==

== ENCOUNTER 2023-10-14 15:04 | Outpatient (CLI) | payer OTHER, SELFPAY ==
--- NOTE | 2023-10-14 15:09 | MR_ITS ---
WS: [id number] MRI LEFT SHOULDER NONCONTRAST TECHNIQUE: Sagittal T2, coronal T1, T2 and proton density imaging. Axial gradient PDE imaging. CLINICAL INFORMATION: L SHOULDER PAIN PERSISITING COMPARISON: None. FINDINGS: Images degraded due to susceptibility artifact from rotator cuff anchors. Postoperative changes of th e distal clavicle with a small amount of subacromial subdeltoid fluid. Rotator cuff repair appears gr ossly intact. Distal supraspinatus and infraspinatus appear intact. Tendinopathy with chronic thinnin g of the distal supraspinatus. No tendon retraction. Normal teres minor. Biceps tendon partially visu alized in the distal bicipital groove. Images in the proximal groove are degraded due to hardware art ifact. Moderate degenerative narrowing of the glenohumeral articulation. Small joint effusion. No other acut e findings MR/MR shoulder LT wo con* [id number] IMPRESSION: Images degraded due to susceptibility artifact from rotator cuff an chors. 1. Rotator cuff repair appears intact. 2. Chronic thinning of the distal supraspinatus with tendinopathy. 3. Small amount of edema at the AC joint with presumed postoperative changes d istal clavicle. 4. Biceps tendon in the distal bicipital groove appears intact. 5. Small joint effusion.
== END 2023-10-14 15:05 | disposition home or self-care (01) ==
LOC: RAD 15:04
PROVIDERS: PCP Family Medicine; Visit Provider Family Medicine
DX: M25.512 Pain in left shoulder (principal); Z98.890 Other specified postprocedural states; M25.412 Effusion, left shoulder
CPT/HCPCS: 73221

== ENCOUNTER → 2023-10-28 13:53 | Outpatient (BNVA) | payer OTHER, SELFPAY | PROVIDERS: PCP Family Medicine; Visit Provider Orthopaedic Surgery | DX: M54.9 Dorsalgia, unspecified (principal) | CPT/HCPCS: 99204 ==

== ENCOUNTER 2023-11-29 06:52 | Emergency (ER) | payer OTHER, MEDICARE, SELFPAY ==
--- NOTE | 2023-11-29 07:04 | ECG_ITS ---
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 Measurements Intervals [place] Rate: 68 P: 27 NM: 182 QRS: 14 QRSD: 97 T: -11 QT: 377 QTc: 404 Interpretive Statements SINUS RHYTHM SEPTAL MYOCARDIAL INFARCTION , PROBABLY OLD [40+ ms Q WAVE IN V1/V2] Nonspecific T wave changes Compared to ECG 08/02/2022 18:28:02 Myocardial infarct finding now present ST (T wave) deviation no longer present Electronically Signed On 11-29-2023 18:46:22 CDT by Barbie Doyle M.D. [id number]
[2023-11-29 07:15] VITALS: BP 134/79; PULSE 69; RESP 16; TEMP 37; O2SAT 96; BMI 35.2
[2023-11-29 07:34] LABS: Basophils % 0.4 %; Eosinophils # 0.2 10^3/uL (0.0-0.8); Eosinophils % 3.2 %; Hematocrit 43.9 % (37-53); Lymphocytes # 1.2 10^3/uL (0.8-4.8); Mean Corpuscular HGB Conc 33.5 g/dL (30-55); Mean Corpuscular Hemoglobin 31.1 pg (27-33); Mean Platelet Volume 9.9 fL (7.4-10.4); Monocytes # 0.6 10^3/uL (0.2-0.9); Monocytes % 11.2 %; Neutrophils # 3.38 10^3/uL (1.8-7.7); Nucleated Red Blood Cells % 0 %; Platelet Count 207 10^3/cmm (157-399); Red Blood Count 4.72 10^6/uL (3.85-5.65); Red Cell Distribution Width 12.3 % (12.1-15.1); White Blood Count 5.36 10^3/uL (3.29-11.43)
--- NOTE | 2023-11-29 07:49 | ED_ITS ---
HPI - Skin/Abscess/Foreign Bdy 2 General: Chief complaint: Skin/Abscess/Foreign Body Stated complaint: headache, tick bite swelled, pain Time Seen by Provider: 11/29/23 07:03 History of Present Illness: 68-year-old male presents emergency room complaining of left-sided headache. Begins at the occipital region and extends over through the parietal towards the temporal region. He has not had any difficulty with vision speech or swallowing. He also had some diarrhea and generalized myalgias. No vomiting no nausea. He recently had a tick bite he has not had any rash redness he said initially its was swollen on his left waistband buttock region however he said that has completely resolved. Associated symptoms: Deny chills or fever(s) Related Data Home Medications Medication Instructions Recorded Confirmed diclofenac sodium 1 % topical gel 2 g topical BID PRN Muscle Pain 03/10/23 10/28/23 hydromorphone 4 mg tablet 4 mg PO TID 03/10/23 10/28/23 oxycodone 10 mg tablet 10 mg PO BID 03/10/23 10/28/23 clopidogrel 75 mg tablet (Plavix) 75 mg PO DAILY 06/04/23 10/28/23 atenolol 100 mg tablet 100 mg PO BEDTIME 06/17/23 10/28/23 Previous Rx's Medication Instructions Recorded methocarbamol 750 mg tablet 750 mg PO Q6H PRN spasms #20 tabs 08/02/22 ammonium lactate 12 % lotion 1 applic topical BID #400 grams 03/10/23 AFO to the right #1 ea 09/15/23 Orthopedic shoe package #1 ea 09/15/23 modify AFO to left to non #1 ea 09/15/23 articulating Allergies Allergy/AdvReac Type Severity Reaction Status Date / Time [id number] Reductase Allergy Unknown Verified 10/28/23 14:34 Inhibitor Review of Systems 2 Const: Denies: fever(s) or chills Card: Denies: chest pain Resp: Denies: dyspnea GI: Denies: abdominal pain : Denies: dysuria, urinary frequency or urinary urgency Musc: Denies: neck pain or back pain Skin/Breast: Denies: rash PFSH ED 2 PFSH: Medical History No pertinent past medical history Social History Smoking and tobacco/nicotine status: never used tobacco/nicotine Substance/Drug Use: never Physical Exam 2 Const: COMMON NORMALS: no acute distress GENERAL APPEARANCE: cooperative and comfortable ORIENTATION/CONSCIOUSNESS: Yes awake, Yes oriented to person, Yes oriented to place and Yes oriented to time HENMT: COMMON NORMALS: normocephalic, atraumatic and hearing grossly normal bilaterally HEAD & SCALP: normocephalic and atraumatic Resp: COMMON NORMALS: normal respiratory effort, No retractions, No use of accessory muscles and clear to auscultation bilaterally AUSCULTATION: clear to auscultation bilaterally Cardio: COMMON NORMALS: regular rate, regular rhythm and No murmurs present (Cardio) RATE: regular rate RHYTHM: regular rhythm GI: COMMON NORMALS: Soft to palpation and No hepatosplenomegaly present A USCULTATION: Yes normoactive bowel sounds PALPATION: Yes Soft to palpation, No Tenderness to palpation present (GI), No Guarding due to palpation present (GI) and Yes No hepatosplenomegaly present Extremity: COMMON NORMALS: normal to inspection, capillary refill normal, no clubbing, cyanosis or edema, no calf tenderness and no pedal edema Neuro: SENSORIUM/ORIENTATION: Yes oriented to person, Yes oriented to place and Yes oriented to time Skin: COMMON NORMALS: no rashes or lesions noted GENERAL SKIN EXAM: no rashes or lesions noted Course 2 Vital Signs: Vital signs: Vital Signs Temperature 98.6 F 11/29/23 07:15 Pulse Rate 61 11/29/23 09:41 Respiratory Rate 19 H 11/29/23 09:41 Blood Pressure 121/88 11/29/23 09:41 Pulse Oximetry 94 11/29/23 09:41 Oxygen Delivery Me thod Room Air 11/29/23 07:15 MDM - Skin/Abscess/Foreign Bdy Medicial Decision Making His headache resolved with medications given. He has no focal neurologic deficits noted, no suspicion of acute CVA. No appearance of a stroke he has no sign of vesicular rash suggestive of a varicella. He does not have any's findings consistent with early onset Vance's. He has no rash and at the area that he stated he was bit there is no evidence of any skin irritation is actually been difficult to find the area back treatment for him. His platelet count is normal his white count is normal liver function normal it seems very unlikely absent a rash or laboratory abnormalities that headache would be due to a tickborne illness. Will discharge the patient home monitor his blood pressure and have him follow-up with his primary care doctor return if he has further problems. Medical Records I reviewed the patient's medical records. Lab Data I reviewed the patient's lab results. 11/29/23 07:11/29/23 07: Laboratory Results WBC 5.36 10^3/uL (3.29-11.43) 11/29/23 07: RBC 4.72 10^6/uL (3.85-5.65) 11/29/23: Hgb 14.70 g/dL (11.27-16.99) 11/29/23 07: Hct 43.9 % (37-53) 11/29/23: MCV 93.0 fl (82-101) 11/29/23: MCH 31.1 pg (27-33) 11/29/23 07: MCHC 33.5 g/dL (30-55) 11/29/23: RDW 12.3 % (12.1-15.1) 11/29/23: Plt Count 207 10^3/cmm (157-399) 11/29/23 07: MPV 9.9 fL (7.4-10.4) 11/29/23: Neut % (Auto) 63.0 % 11/29/23: Lymph % (Auto) 22.0 % 11/29/23 07: Otoe % (Auto) 11.2 % 11/29/23 07: Eos % (Auto) 3.2 % 11/29/23 07: Baso % (Auto) 0.4 % 11/29/23: Neut # (Auto) 3.38 10^3/uL (1.8-7.7) 11/29/23 07: Lymph # (Auto) 1.2 10^3/uL (0.8-4.8) 11/29/23 07: Otoe # (Auto) 0.6 10^3/uL (0.2-0.9) 11/29/23 07:28 Eos # (Auto) 0.2 10^3/uL (0.0-0.8) 11/29/23 07:28 Baso # (Auto) 0.0 10^3/uL (0.0-0.1) 11/29/23 07:28 Nucleated RBC % (auto) 0 % 11/29/23 07: Nucleated RBCs # 0.0 /100WBC 11/29/23 07:28 Sodium 139 mmol/L (136-145) 11/29/23 07:28 Potassium 3.6 mmol/L (3.5-5.1) 11/29/23 07:28 Chloride 103 mmol/L (98-107) 11/29/23 07:28 Carbon Dioxide 22 mmol/L (22-29) 11/29/23 07:28 Anion Gap 17.6 (5-19) 11/29/23 07:28 BUN 21 mg/dL (8-23) 11/29/23 07:28 Creatinine 1.0 mg/dL (0.7-1.2) 11/29/23 07:28 GFR Calculation 74.8 mL/min (90-130) L 11/29/23 07:28 Glucose 111 mg/dL (65-115) 11/29/23 07:28 Calculated Osmolality 292 mOsm/kg (285-295) 11/29/23 07:28 Calcium 8.9 mg/dL (8.5-10.5) 11/29/23 07:28 Total Bilirubin 1.2 mg/dL (0.15-1.2) 11/29/23 07:28 AST 17 U/L (0-40) 11/29/23 07:28 ALT 20 U/L (0-41) 11/29/23 07:28 Alkaline Phosphatase 77 U/L (40-130) 11/29/23 07:28 Total Protein 7.1 g/dL (6.6-8.7) 11/29/23 07:28 Albumin 4.2 g/dL (3.5-5.2) 11/29/23 07:28 Globulin 2.9 g/dL (1.3-4.6) 11/29/23 07:28 All radiology interpretation(s) finalized by discharge EKG Data EKG 1: Interpretation: EKG shows normal sinus rhythm with a rate of 68 LA interval of 182 QT is normal no acute ST changes noted Discharge Plan Discharge Patient Disposition: Home Clinical Impression: Headache, Chronic back pain, Tick bite of buttock Condition: Stable Prescriptions: No Action oxycodone 10 mg tablet 10 mg PO BID hydromorphone 4 mg tablet 4 mg PO TID diclofenac sodium 1 % gel 2 g topical BID PRN (Reason: Muscle Pain) ammonium lactate 12 % lotion 1 applic topical BID Qty: 400 3RF Rx Instructions: Apply to feet for dry skin clopidogrel [Plavix] 75 mg tablet 75 mg PO DAILY (DME) modify AFO to left to non articulating See Rx Instructions .Route .MEDSUPPLY Qty: 1 0RF Rx Instructions: As directed by [facility] (DME) Orthopedic shoe package See Rx Instructions .Route .MEDSUPPLY Qty: 1 0RF Rx Instructions: As directed made by the shoes guys (DME) AFO to the right See Rx Instructions .Route .MEDSUPPLY Qty: 1 0RF Rx Instructions: made by ashlee methocarbamol 750 mg tablet 750 mg PO Q6H PRN (Reason: spasms) Qty: 20 0RF atenolol 100 mg tablet 100 mg PO BEDTIME Discharge Orders: Discharge ED (Routine); Ordered 11/29/23 Ordered By: Andres Gerard Referrals: Shaye Siddiqui MD [Primary Care Provider] - Discharge Diet: Usual diet Discharge Activity: Resume usual activity Patient Instructions: Opioid Safety, Pain Management Activity Restrictions/Additional Instructions: Thank you for choosing [facility] for your healthcare needs today. It is very important that you follow up as instructed or that you return to the Emergency Department should you have concerns or if your condition changes or worsens in any way. Monitor your blood pressure follow-up with your primary care doctor if headaches recur. Coding Level of Care Code ED Director Of Supply Chain for Scott Nam
[2023-11-29 07:51] LABS: Alanine Aminotransferase 20 U/L (0-41); Albumin Level 4.2 g/dL (3.5-5.2); Alkaline Phosphatase 77 U/L (40-130); Anion Gap 17.6 (5-19); Aspartate Amino Transferase 17 U/L (0-40); Blood Urea Nitrogen 21 mg/dL (8-23); Calcium 8.9 mg/dL (8.5-10.5); Carbon Dioxide 22 mmol/L (22-29); Chloride 103 mmol/L (98-107); Creatinine Clr Calc Pharmacy 90.7034; Globulin 2.9 g/dL (1.3-4.6); Glomerular Filtration Rate 74.8 mL/min (90-130); Glucose 111 mg/dL (65-115); Osmolality Calculated 292 mOsm/kg (285-295); Potassium 3.6 mmol/L (3.5-5.1); Sodium 139 mmol/L (136-145); Total Bilirubin 1.2 mg/dL (0.15-1.2); Total Protein 7.1 g/dL (6.6-8.7)
[2023-11-29] MEDS: dexamethasone 10 mg/mL INJ IM (08:19)
[2023-11-29] MEDS: ketorolac 30 mg/mL INJ IVP (08:19)
[2023-11-29 09:41] VITALS: BP 121/88; PULSE 61; RESP 19; O2SAT 94
[2023-12-01 15:09] LABS: Lyme AB Screen <0.90 index
== END 2023-11-29 09:47 | disposition home or self-care (01) ==
PROVIDERS: Emergency Provider Family Medicine; PCP Family Medicine
DX: R51.9 Headache, unspecified (principal); G89.29 Other chronic pain; M54.9 Dorsalgia, unspecified; S30.860A Insect bite (nonvenomous) of lower back and pelvis, initial encounter; W57.XXXA Bitten or stung by nonvenomous insect and other nonvenomous arthropods, initial encounter; Z79.02 Long term (current) use of antithrombotics/antiplatelets
CPT/HCPCS: 36415; 80053; 85025; 86618; 86666; 86757; 93005; 96372; 96374; 99284; J1100; J1885

== ENCOUNTER 2023-12-03 08:57 | Outpatient (CLI) | payer OTHER, MEDICARE, SELFPAY ==
--- NOTE | 2023-12-03 09:30 | MR_ITS ---
WS: [id number] MRI THORACIC SPINE with and without contrast HISTORY: Back Pain COMPARISON: 02/20/2023 TECHNIQUE: Multiplanar sequences are performed in sagittal and axial planes. Postcontrast imaging Mul tiHance 20 mL IV. There has been no significant change in appearance of the midthoracic vertebral bodies since the prio r examination from 02/20/2023. T7-T9: Progressive loss of disc space height at T7-8 and T8-9. There is increasing marrow edema at T8 and T9. Very low signal on the T1 sequences in T8 and T9. The abnormal signal previously described i n T7 has improved and is now more likely fatty replacement. There is enhancement now noted involving a large portion of the T8 and T9 vertebral bodies greatest to the LEFT of midline. There is also enha ncement and thickening of the epidural space. Epidural enhancement is most significant anteriorly ext ends from T6 to the mid T10. Slightly lesser enhancement along the posterior epidural space. Suspicio us for small epidural abscess posterior T9 measuring 2.0 x 0.6 cm. This is just to the RIGHT of midli ne. There is mild deformity of the ventral thecal sac at the T8-9 level. There is also a disc protrus ion at this level. There is mild cord edema but no enhancement within the cord. On the axial imaging through the mid thoracic spine there is paravertebral soft tissue edema at T8 an d T9. Marrow edema is noted in the T8 pedicles greater on the LEFT and the LEFT lamina. More focal ed messi in the LEFT T9 transverse process and lamina. Edema extends into the neural foramina of T8 and T9 . There is a small amount of marrow edema anteriorly in the T5 and T6 which may be reactive and degener ative in etiology. T1-2: Normal. T2-3: Bilateral facet arthropathy and foraminal narrowing. T3-4: Advanced facet joint arthritis and foraminal narrowing. T4-5: Mild bilateral foraminal narrowing. T5-6: Normal. T6-7: Small central disc protrusion and moderate foraminal stenosis. T7-8: Marked osteophytic ridging and annular disc bulging. Marked facet arthritis. Mild central with moderate to severe bilateral foraminal stenosis. T8-9: Diffuse osteophytic ridging and annular disc bulging. Marked ligamentum flavum and facet arthri tis. Severe bilateral foraminal stenosis with moderate central stenosis. Mild progression. T9-10: Mild annular disc bulging with mild central and moderate foraminal stenosis. T10-11: Mild facet disease and foraminal stenosis. T11-12: Normal. Paravertebral soft tissues are normal. MR/MR thoracic spine wo/w [id number] IMPRESSION: 1. Interval adverse change in the thoracic spine since 02/20/2023. 2. Progression of edema and degenerative disc space narrowing at T7-8 and T8-9 . 3. Vertebral body enhancement at T8 and T9 with paravertebral enhancement, epi dural enhancement and facet joint enhancement. These findings are highly suspic ious for osteomyelitis. Epidural enhancement just to the RIGHT measuring 2.0 x 0.6 cm. Some of the dural enhancement could be related to advancing facet joint arthritis and synovitis. With the extent of the paravertebral enhancement and vertebral enhancement osteomyelitis and epidural abscess should be considered. 4. T8-9: Moderate central stenosis with severe foraminal stenosis. There is co ntact on the cord and a small amount of edema in the thoracic cord at the T8-9 level. 5. Multilevel areas of additional facet joint arthropathy and stenoses. Notified River Vargas DO at 12/03/2023 11:40 AM.
[2023-12-03] MEDS: gadobenate dimeglumine 20 mL vial IV (10:50)
== END 2023-12-03 08:58 | disposition home or self-care (01) ==
LOC: RAD 09:00
PROVIDERS: PCP Family Medicine; Visit Provider Orthopaedic Surgery
DX: M46.94 Unspecified inflammatory spondylopathy, thoracic region (principal); M99.62 Osseous and subluxation stenosis of intervertebral foramina of thoracic region; M51.34 Other intervertebral disc degeneration, thoracic region; M25.78 Osteophyte, vertebrae
CPT/HCPCS: 72157; A9577

== ENCOUNTER → 2023-12-09 15:24 | Outpatient (BNVA) | payer OTHER, MEDICARE, SELFPAY | PROVIDERS: PCP Family Medicine; Visit Provider Orthopaedic Surgery | DX: M54.9 Dorsalgia, unspecified (principal); M48.04 Spinal stenosis, thoracic region; G99.2 Myelopathy in diseases classified elsewhere; Z01.818 Encounter for other preprocedural examination | CPT/HCPCS: 36415; 80053; 81003; 81015; 85025; 99214 ==

== ENCOUNTER → 2024-01-09 09:51 | Outpatient (BNVA) | payer MEDICARE, SELFPAY | PROVIDERS: PCP Family Medicine; Visit Provider Family Medicine | DX: Z01.818 Encounter for other preprocedural examination (principal) | CPT/HCPCS: 80048; 81000; 85025 ==

== ENCOUNTER 2024-01-12 13:07 | Inpatient (IN) | payer OTHER, MEDICARE, SELFPAY ==
--- OUTSIDE RECORDS SUMMARY | 2023-12-30 15:27 | XMS_ITS ---
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 Name Role Phone [facility] [place] Primary Care Provider Jackie Emil Hughes MD Unavailable [phone] MD, Cam[place] Unavailable Unavailable Lucero Arriaga Unavailable [phone] ALLERGIES Allergen (clinical drug ingredient) Drug/Non Drug Allergy documented on EMR Reaction Allergy Type Onset Date Status simvastatin simvastatin liver problems Drug Allergy Active rosuvastatin Crestor liver problems Drug Allergy Active REASON FOR VISIT Patient states he is here today for prescriptions {mid and low back pain} MEDICATIONS Medication SIG (Take, Route, Frequency, Duration) Notes Start Date End Date Status Diclofenac Sodium Topical 1% 4 grams applied topically Q6H prn pain Active HYDROmorphone Hydrochloride 4 mg 1-2 tabs orally Q4-6H prn pain (max 5 per day; hold within 4H of planned sleep) for 28 days ICD-10: G89.29 12/25/2023 Active Wixela Inhub 100 mcg-50 mcg 1 INH inhaled 2 times a day for 30 day(s) 09/11/2023 Active topiramate 25 mg 1 tab orally 2 times a day Active Saw [place] OTC, as directed Active Plavix 75 mg 1 tab(s) orally once a day for 30 day(s) Active Slo-Niacin 500 mg orally as directed Active tiZANidine 4 mg 1 tab po orally QHS prn spasm Active sucralfate 1 g/10 mL 10 mL orally 4 time s a day (before meals and at bedtime) Active Aline-3 Active Narcan 4 mg/0.1 mL as directed intranasally once 07/08/2019 Active omeprazole 40 mg 1 cap orally once a day Active mupirocin topical 2% 1 grzegorz applied topically 3 times a day Active multivitamin Multiple Vitamins orally once a day ingris juice supplement, clove supplement Active hydrochlorothiazide-t riamterene 50 mg-75 mg 1 tab orally once a day Active fluorouracil topical 5% 1 grzegorz applied topically 2 times a day Active magnesium citrate 125 mg 1 cap orally once a day Active levothyroxine 137 mcg (0.137 mg) 1 tab orally once a day Active [place] Agenda Powder as directed Active buPROPion 150 mg/24 hours 1 tab orally once a day (in the morning) Active atenolol 100 mg 1 tab orally once a day Active Co-Q10 100 mg orally as directed Active aspirin 81 mg 1 tab orally once a day Active ashwagandha as directed Active Aleve sodium 220 mg 2 caps orally 1 X PRN Active SOCIAL HISTORY Sex Assigned At : Social History Observation Description Sex Assigned At Unknown alcohol Question Answer Notes Did you have a drink containing alcohol in the p ast year? No Points 0 Interpretation Negative VITAL SIGNS Temperature 97.3 degrees Fahrenheit 12/25/19 24 Blood pressure systolic 144 mm Hg 12/25/19 24 Blood pressure diastolic 84 mm Hg 024 Height 70 in 12/25/2023 Weight 252.6 lbs 12/25/2023 Oximetry 92 % 12/25/2023 BMI 36.24 kg/m2 12/25/2023 Encounters Encounter Location Date Provider Diagnosis [facility] [address] [place], [place] [id number] 12/25/2023 Lucero Villegas Pain in thoracic spi ne M54.6 ; Other chronic pain G89.29 ; Myalgia, other site M79.18 ; Sacroiliitis, not elsewhere classified M46.1 ; Vertebrogenic low back pain M54.51 and Obstructive sleep apnea (adult) (pediatric) G47.33 ASSESSMENTS Encounter Date Diagnosis Assessment Notes Treatment Notes Treatment Clinical Notes 12/25/2023 Pain in thoracic spine (ICD-10 - M54.6) Chronic axial thoracic spine pain. Patient reports he is tentatively scheduled for T6-T10 fusion with Dr. Vargas on 01/12/2024. 12/25/2023 Other chronic pain (ICD-10 - G89.29) Patient with history of benefit received with opioid rotation between hydromorphone, hydrocodone and oxycodone. Patient would like to rotate from oxycodone to hydromorphone due to his up coming spine surgery. Plan to continue oral opioid medication management with opioid rotation to hydromorphone. 12/25/2023 Myalgia, other site (ICD-10 - M79.18) History of TPIs for his left mid back pain with efficacy reported. Will consider additional TPIs as needed / desired by patient. 12/25/2023 Sacroiliitis, not elsewhere classified (ICD-10 - M46.1) Left sacral RFA procedure with excellent benefit for low back and leg pain. 12/25/2023 Vertebrogenic low back pain (ICD-10 - M54.51) Chronic axial lumbosacral spine pain. Patient to notify this office if additional interventional treatment is desired. Anticoagulant therapy would be a confounding variable. 12/25/2023 Obstructive sleep apnea (adult) (pediatric) (ICD-10 - G47.33) Patient continues to report strict nightly use of his CPAP device. 12/25/2023 Other Due to the [facility] inability to store more than 1 month of opioid prescriptions at a time, remaining eRx will be sent in 28 days. PLAN OF TREATMENT Medication Medication Name Sig Start Date Stop Date Notes Diclofenac Sodium Topical 1% 4 grams applied topically Q6H prn pain HYDROmorphone Hydrochloride 4 mg 1-2 tabs orally Q4-6H prn pain (max 5 per day; hold within 4H of planned sleep) for 28 days 12/25/2023 ICD-10: G89.29 oxyCODONE 10 mg 1 tab orally Q4-6H p rn pain (max 3 per day; hold within 4H of planned sleep) Treatment Notes Assessment Notes Pain in thoracic spine Chronic axial tho racic spine pain. Patient reports he is tentatively scheduled for T6-T10 fusion with Dr. Vargas on 01/12/2024. Other chronic pain Patient with history of benefit received with opioid rotation between hydromorphone, hydrocodone and oxycodone. Patient would like to rotate from oxycodone to hydromorphone due to his up coming spine surgery. Plan to continue oral opioid medication management with opioid rotation to hydromorphone. Myalgia, other site History of TPIs for his left mid back pain with efficacy reported. Will consider additional TPIs as needed / desired by patient. Sacroiliitis, not elsewhere classified L eft sacral RFA procedure with excellent benefit for low back and leg pain. Vertebrogenic low back pain Chronic axia l lumbosacral spine pain. Patient to notify this office if additional interventional treatment is desired. Anticoagulant therapy would be a confounding variable. Obstructive sleep apnea ([place]) (pediatric) Patient continues to report strict night ly use of his CPAP device. Other Due to the [facility] inability to store more than 1 month of opioid prescriptions at a time, remaining eRx will be sent in 28 days. Next Appt Details Follow Up: 2 month Rx visit. , Reason: Provider Name:Emil Thibodeaux son, 01/22/2024 07:56:00 AM, [facility] [place] [id number], Provider Name:Emil Thibodeaux son, 02/19/2024 01:50:00 PM, [facility], [place], [place], [phone], History and Physical Notes * HPI (History of Present Illness) Category Sub-Category Detail Notes Lumbar Spine injury: tingling/numbness intermittently in th e left foot pain in the bilateral low er back. This pain is described as constant aching. The back pain is aggravated by bending and stooping to run concrete. This pain is somewhat alleviated with use of topical agents and with stretching radiation of pain previous surgery: L4-L5 fusion / fixat ion 2017 weakness Thoracic Spine injury: numbness and tingling pain in the mid back. Thi s pain is described as constant aching with tightness. This pain extends into bilateral ribs and muscles. The mid-back pain is aggravated by lying flat, bending over, arising froman seated position. The mid-back pain is somewhat alleviated with use of topical agents, massage, and with rest surgery Medications OxyIR (oxycodone) 10 mg, 1 tab, orally, Q4-6H prn pain (max 3 per day; hold within 4H of planned sleep), 28 days, 84, Refills 0. Notes: Prescriptions given (2) on 11/06/23. Patient reports good benefit, as evidenced by improved ability to do normal every day chores. Patient states he has his normal count to last to the end of the month plus an extra 3-4 tablets. Last fill date 12/04/23 diclofenac (Voltaren) gel, 1%, 4 grams, applied topically, Q6H prn pain, 30 days, 500 Gram, Refills 0. Notes: Prescriptions given (2) on 10/16/23. Patient reports good benefit. No refill requested at today's visit Plavix (clopidogrel) and aspirin are man aged by Dr. Siddiqui; will address / send request for anticoagulation cessation recommendations as the need arises Interventional Left SI joint local anesthetic / steroid injection: on 02/11/18 with good initial benefit / anesthetic effect for ~ 8 hours (no subsequent steroid effect) Trigger point injections: on 06/27/20 wi th no benefit; on 05/15/23 with a 75% decrease in pain post injections in the affected areas for > 6 weeks; left mid back on 07/03/23 with an 80% decrease in pain post injections in the affected areas for 2-3 days and subsequent resolution of similar right sided pain that was less severe to begin with Spinal Cord Stimulator trial: from 05/24 through 05/27/19 with good benefit (patient elected to not proceed to evaluation for possible DCS system implantation) Radiofrequency ablation of s acral innervation: left side on 05/28/23 with excellent ramona efit to include left sacral axial pain resolution plus left lower extremity symptom resolution for aproximately 4 months (an updated patient report) Previous Therapy Previous therapy: home exercise s / stretching therapy with some benefit; topical agent therapy with some benefit; TENS unit therapy with history of no benefit; chiropractic therapy with history of no benefit (2015); physical therapy with history of no benefit (2017); ice/heat therapy with history of some benefit (2017); remote injection therapy ([id number] spinal injections) with history of no benefit; patient has also has had injection therapy in shoulders, feet, thumbs, elbows and neck with history of no benefit; history of acupuncture therapy; physical therapy with minimal benefit thus far (initiated in 10/2023 - on-going); massage therapy with good benefit (10/2023 - on-going) Medication history: Percocet (good benef it); Naproxen 375 mg; morphine (good benefit); methadone 10 mg TID (good benefit); Dilaudid 4 mg (good benefit); [place] 10/325 (good benefit); ibuprofen 400 mg (oral NSAIA issues per patient report - topical NSAIA Rxs without issue) Previous Imaging/Studies MRI of the T-spine and L-spine on 02/20/23 and 06/04/19; of the L-spine on 09/22/17; of the right and left shoulder on 09/22/17 X-rays of the L-spine on and 08/20/17; of the left shoulder on 08/20/17 Physician/Clinic notes Notes received from: Dr. Vargas; see scanned documents Non Compliance/Failure to Fo llow Treatment Agreement Failure to take medication as prescribed: 07/22/18 (short #37 oxycodone) Physical Examination Category Sub-Category Detail Notes ENT Hearing: grossly intact Chest Shape and expansion: normal expa nsion, equal bilaterally, respirations even and unlabored Neurological Psychiatric: alert and conver chidi Musculoskeletal Gait: broad-based Outcome Assessment: Findings:: Negative, care pl an not required Dermatology Skin inspection: pink, warm, dry , and intact General General appearence: well groomed , well nourished Build: moderately obese Head: normocephalic Eyes Conjunctiva: without injectio n
--- OUTSIDE RECORDS SUMMARY | 2023-12-30 15:28 | XMS_ITS | Patient Health Record ---
Author Name Unknown Organization [facility] Address [address] [place], [place] [id number] Care Team Providers Care Cable Lacer Name Role Phone [facility] Primary Care Provider Jackie Emil Hughes MD Unavailable [phone] [place], [place] Unavailable Unavailable Lucero Arriaga Unavailable [phone] ALLERGIES Allergen (clinical drug ingredient) Drug/Non Drug Allergy documented on EMR Reaction Allergy Type Onset Date Status simvastatin simvastatin liver problems Drug Allergy Active rosuvastatin Crestor liver problems Drug Allergy Active RESULTS Component Value Reference Range Notes MRI: Thoracic spine without contrast ([id number]) Reviewed date:02/20/2023 01:41:20 PM Interpretation: Performing Lab: Notes/Report: MRI: Lumbar spine with/witho ut contrast ([id number]) Reviewed date:02/20/2023 01:42:38 PM Interpretation: Performing Lab: Notes/Report: REASON FOR REFERRAL Diagnosis 1 Vertebrogenic low ba ck pain (M54.51) Referring Provider First Name Horatio Jan ff Referring Provider Last Name [facility] Referred Organization [facility] Referred Provider Emil Gamboa Referred Address [address] [place], [id number] Referred Provider 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 Referral Priority Routine Diagnosis 1 Vertebrogenic low ba ck pain (M54.51) Referring Provider First Name Horatio Jan ff Referring Provider Last Name [place] Referred Organization [facility] Referred Provider Emil Gamboa Referred Address [address] [place], [id number],[place] Referred Provider 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 Referral Priority Routine Reason Evaluation for possi ble surgical intervention Diagnosis 1 Pain in thoracic spi ne (M54.6) Referral Organization [facility] Referring Provider First Name Lucero Referring Provider Last Name Bakari Referring Provider Speciality Nurse Renan oneill Referred Provider River Vargas Referred Provider Specialty Orthopedic S urgery General Notes needs Craig DALAL,Ky Russo 09/30/2023 11:31:45 AM > RFS PREPARED/FAXED TO Denny DOMINGUEZ Brenda 10/13/2023 03:52:42 PM > referral faxed, Yasmin Baldwin 11/03/2023 10:18:53 AM > spoke with Deandra at Dr. Vargas's office - patient was seen on 10/28/23 and she is faxing office notes Referral Priority Routine Referral Appointment Date 10/28/2023 MEDICATIONS Medication SIG (Take, Route, Frequency, Duration) Notes Start Date End Date Status Upperco-3 Active Narcan 4 mg/0.1 mL as directed intranasally once 07/08/2019 Active omeprazole 40 mg 1 cap orally once a day Active Moringa Lonepine Powder as directed Active mupirocin topical 2% 1 grzegorz applied [...] 1 tab orally once a day Active buPROPion 150 mg/24 hours 1 tab orally once a day (in the morning) Active atenolol 100 mg 1 tab orally once a day Active Co-Q10 100 mg orally as directed Active tiZANidine 4 mg 1 tab po orally QHS prn spasm Active sucralfate 1 g/10 mL 10 mL orally 4 time s a day (before meals and at bedtime) Active aspirin 81 mg 1 tab orally once a day Active Wixela Inhub 100 mcg-50 mcg 1 INH inhaled 2 times a day for 30 day(s) 09/11/2023 Active ashwagandha as directed Active topiramate 25 mg 1 tab orally 2 times a day Active Aleve sodium 220 mg 2 caps orally 1 X PRN Active Diclofenac Sodium Topical 1% 4 grams applied topically Q6H prn pain Active [place] OTC, as directed Active Plavix 75 mg 1 tab(s) orally once a day for 30 day(s) Active HYDROmorphone Hydrochloride 4 mg 1-2 tabs orally Q4-6H prn pain (max 5 per day; hold within 4H of planned sleep) for 28 days ICD-10: G89.29 12/25/2023 Active Slo-Niacin 500 mg orally as directed Active SOCIAL HISTORY Sex Assigned At : Social History Observation Description Sex Assigned At Unknown alcohol Question Answer Notes Did you have a drink containing alcohol in the p ast year? No Points 0 Interpretation Negative PROBLEMS Problem Type ICD Code Onset Dates Problem Status W/U Status Risk SNOMED Code Notes Problem Sacroiliitis, not elsewhere classified (M46.1) Active confirmed Solitary sacroiliitis (454599106) Problem Low back pain (M54.5) Active confirmed Low back pain (640516535) Problem Spondylosis without myelopathy or radiculopathy, lumbar region (M47.816) Active confirmed Lumbosacral spondylosis without myelopathy (20897008) Problem group home (current) use of opiate analgesic (Z79.891) Active confirmed High ris k drug monitoring status (943536558) Problem Other specified anxiety disorders (F41.8) Active confirmed Anxiety disorder (257478107) Problem Obstructive sleep apnea (adult) (pediatric) (G47.33) Active confirmed Obstructive sleep apnea syndrome (49584876) Problem Other chronic pain (G89.29) Active confirmed Chronic pain (25709018) Problem Pain in thoracic spine (M54.6) Active confirmed Pain in thoracic spine (240248335) Problem Postlaminectomy syndrome, not elsewhere classified (M96.1) Active confirmed Post-lami nectom y syndrome (37142551) Problem Other superintendent container terminal (current) drug therapy (Z79.899) Active confirmed Long-term current use of drug therapy (031104547) Problem Spinal stenosis, lumbar region without neurogenic claudication (M48.061) Active confirmed Spinal stenosis of lumbar region (14752577) Problem Spinal stenosis, lumbar region with neurogenic claudication (M48.062) Active confirmed Neurogenic claudication (604337456) Problem Myalgia, other site (M79.18) Active confirmed Muscle pain (81028997) Problem Vertebrogenic low back pain (M54.51) Active confirmed Pain in l umbar spine (743701305) VITAL SIGNS Temperature 97.3 degrees Fahrenheit 12/25/2023 Blood pressure diastolic 84 mm Hg 12/25/2023 Oximetry 92 % 12/25/2023 Height 70 in 12/25/2023 Blood pressure systolic 144 mm Hg 12/25/2023 Weight 252.6 lbs 12/25/2023 BMI 36.24 kg/m2 12/25/2023 Encounters Encounter Location Date Provider Diagnosis [facility] [address] [place] [id number] 01/07/2023 Emil Gamboa Vertebrogenic low ba ck pain M54.51 ; Pain in thoracic spine M54.6 ; Other chronic pain G89.29 ; Obstructive sleep apnea (adult) (pediatric) G47.33 and group home (current) use of opiate analgesic Z79.891 [facility] [address] [place] [id number] 01/23/2023 Emil Gamboa [facility] [address] [place] [id number] 02/20/2023 Emil Gamboa [facility], [facility] [address] [place] [id number] 03/20/2023 Emil Gamboa Sacroiliitis, not elsewhere classified M46.1 ; Other specified anxiety disorders F41.8 ; Spondylosis without myelopathy or radiculopathy, lumbar region M47.816 ; Vertebrogenic low back pain M54.51 ; Pain in thoracic spine M54.6 ; Other chronic pain G89.29 and Obstructive sleep apnea (adult) (pediatric) G47.33 [facility] [address] [facility] [place] [place], [place] [id number] 04/17/2023 Emil Gamboa [facility] [address] [place] [address] 05/05/2023 Emil Gamboa Sacroiliitis, not elsewhere classified M46.1 and Other specified anxiety disorders F41.8 [facility] [address] [place], [place] [id number] 05/06/2023 Emil Gamboa [facility] [address] [place], [place] [id number] 05/15/2023 Emil Gamboa Sacroiliitis, not elsewhere classified M46.1 ; Other specified anxiety disorders F41.8 ; Myalgia, other site M79.18 ; Spondylosis without myelopathy or radiculopathy, lumbar region M47.816 ; Vertebrogenic low back pain M54.51 ; Pain in thoracic spine M54.6 ; Other chronic pain G89.29 and Obstructive sleep apnea (adult) (pediatric) G47.33 [facility] [address] [place] [place] [address] 05/19/2023 Emil Gamboa Spondylosis without myelopathy or radiculopathy, lumbar region M47.816 ; Sacroiliitis, not elsewhere classified M46.1 and Other specified anxiety disorders F41.8 [facility] [address] [place], [place] [id number] 06/02/2023 Emil Gamboa [facility] [address] [place], [place] [id number] 06/12/2023 Emil Gamboa [facility] [address] [place], [place] [id number] 07/03/2023 Emil Gamboa Myalgia, other site M79.18 ; Pain in thoracic spine M54.6 ; Sacroiliitis, not elsewhere classified M46.1 ; Other chronic pain G89.29 ; Vertebrogenic low back pain M54.51 and Obstructive sleep apnea (adult) (pediatric) G47.33 [facility] [address] [place], [place] [id number] 07/31/2023 Emil Gamboa [facility] [address] [place], [place] [id number] 09/11/2023 Lucero Powers Pain in thoracic spi ne M54.6 ; Other chronic pain G89.29 ; Myalgia, other site M79.18 ; Sacroiliitis, not elsewhere classified M46.1 ; Vertebrogenic low back pain M54.51 and Obstructive sleep apnea (adult) (pediatric) G47.33 [facility] [address] [place], [place] [id number] 10/08/2023 Emil Gamboa [facility] [address] [place], [place] [id number] 11/06/2023 Lucero Villegas Pain in thoracic spi ne M54.6 ; Other chronic pain G89.29 ; Myalgia, other site M79.18 ; Sacroiliitis, not elsewhere classified M46.1 ; Vertebrogenic low back pain M54.51 and Obstructive sleep apnea (adult) (pediatric) G47.33 [facility] [address] [place], [place] [id number] 12/04/2023 Emil Gamboa [facility] [address] [place], [place] [id number] 12/25/2023 Lucero Villegas Pain in thoracic spi ne M54.6 ; Other chronic pain G89.29 ; Myalgia, other site M79.18 ; Sacroiliitis, not elsewhere classified M46.1 ; Vertebrogenic low back pain M54.51 and Obstructive sleep apnea (adult) (pediatric) G47.33 ASSESSMENTS Encounter Date Diagnosis Assessment Notes Treatment Notes Treatment Clinical Notes 01/07/2023 Pain in thoracic spine (ICD-10 - M54.6) Chronic axial thoracic spine pain. Plan updated imaging study. Consider interventional spine treatment recommendation pending outcome of imaging study. 01/07/2023 Vertebrogenic low back pain (ICD-10 - M54.51) Chronic axial lumbosacral spine pain. Plan updated imaging study. Consider interventional spine treatment pending outcome of imaging study. 03/20/2023 Sacroiliitis, not elsewhere classified (ICD-10 - M46.1) Plan left SI joint local anesthetic injection (NO STEROID). Consider sacral denervation procedure via RFA if diagnostic block noted. Risks, benefits, and alternatives reviewed with patient. Questions answered to the patient's reported satisfaction. Preparation for procedure reviewed with patient; printed instructions declined. Did not recommend anticoagulant cessation for the sacral procedure(s). 03/20/2023 Other specified anxiety disorders (ICD-10 - F41.8) Plan moderate IV sedation as needed for block procedure with midazolam and / or fentanyl. Consider monitored anesthesia care if RFA procedure is indicated. 05/05/2023 Sacroiliitis, not elsewhere classified (ICD-10 - M46.1) Plan left SI joint local anesthetic injection (NO STEROID) 05/05/2023 Other specified anxiety disorders (ICD-10 - F41.8) Plan moderate IV sedation with midazolam and/or fentanyl 05/15/2023 Sacroiliitis, not elsewhere classified (ICD-10 - M46.1) Left SI joint local anesthetic injection (NO STEROID) with diagnostic efficacy. Plan left lateral branch RFA of S1, S2, and S3. No prior left low lumbar RFA completed. Will need to also address the left L5 dorsal ramus contribution to the sacral denervation procedure. Risks, benefits, and alternatives reviewed with patient. Questions answered to the patient's reported satisfaction. Preparation for procedure reviewed with patient; printed instructions declined. Do not recommend anticoagulant cessation for the sacral RFA procedure. 05/15/2023 Other specified anxiety disorders (ICD-10 - F41.8) Plan monitored anesthesia care for sacral RFA procedure as desired by patient. 05/19/2023 Spondylosis without myelopathy or radiculopathy, lumbar region (ICD-10 - M47.816) Plan left sacral denervation with radiofrequency lesioning of the lateral branches of S1, S2, and S3, plus the left L5 dorsal ramus 07/03/2023 Pain in thoracic spine (ICD-10 - M54.6) Chronic axial thoracic spine pain. Imaging study previously completed. Report reviewed with patient in great detail at prior visit. Patient was not interested in referral for possible fluoroscopic guided interventional treatment at that prior visit. Patient again deferred on a referral at 07/03/23 visit, stating he wants to trial more TPIs. 07/03/2023 Myalgia, other site (ICD-10 - M79.18) Patient desires TPIs for his left mid back pain. Plan TPIs at today's visit. 09/11/2023 Other chronic pain (ICD-10 - G89.29) Patient reports that taking his pain medication allows him to travel and work outside. Patient reports a self taper to 3 tablets per day. Plan to continue opioid medication management. 09/11/2023 Pain in thoracic spine (ICD-10 - M54.6) Chronic axial thoracic spine pain. Imaging study previously completed and report was reviewed with patient in great detail. Patient is interested in a referral to Dr. Vargas to discuss possible surgical options. 11/06/2023 Pain in thoracic spine (ICD-10 - M54.6) Chronic axial thoracic spine pain. Patient reports he is tentatively scheduled for T6-T10 fusion with Dr. Vargas in 12/2023. 12/25/2023 Pain in thoracic spine (ICD-10 - M54.6) Chronic axial thoracic spine pain. Patient reports he is tentatively scheduled for T6-T10 fusion [address] Dr. Vargas on 01/12/2024. 12/25/2023 Myalgia, other site (ICD-10 - M79.18) History of TPIs for his left mid back pain with efficacy reported. Will consider additional TPIs as needed / desired by patient. 11/06/2023 Other chronic pain (ICD-10 - G89.29) Patient reports that taking his pain medication allows him to start Physical Therapy in preparation for upcoming surgery. Plan to continue opioid medication management. 12/25/2023 Other chronic pain (ICD-10 - G89.29) Patient with history of benefit received with opioid rotation between hydromorphone, hydrocodone and oxycodone. Patient would like to rotate from oxycodone to hydromorphone due to his up coming spine surgery. Plan to continue oral opioid medication management with opioid rotation to hydromorphone. 11/06/2023 Myalgia, other site (ICD-10 - M79.18) History of TPIs for his left mid back pain with efficacy reported. Will consider additional TPIs as needed / desired by patient. 09/11/2023 Myalgia, other site (ICD-10 - M79.18) History of TPIs for his left mid back pain with efficacy reported. Will consider additional TPIs as needed / desired by patient. 05/19/2023 Sacroiliitis, not elsewhere classified (ICD-10 - M46.1) 07/03/2023 Sacroiliitis, not elsewhere classified (ICD-10 - M46.1) Left sacral RFA procedure with excellent benefit for low back and leg pain. Patient reports resolution of pain in these areas as of 07/03/23. 05/15/2023 Myalgia, other site (ICD-10 - M79.18) Patient desires TPIs for his lower mid back pain. Plan TPIs in lower mid back / upper lumbar area at today's visit. 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 Plan to continue oral opioid medication management. 03/20/2023 Spondylosis without myelopathy or radiculopathy, lumbar region (ICD-10 - M47.816) Could consider right L4, L5 medial branch blocks and possible RFA procedure, however, patient's prior fusion surgery could complicate the L4 portion of the procedure. Will address this possible set of procedures as well as possible repeat DCS trial procedure pending outcome of planned left sacral intervention(s). 01/07/2023 Obstructive sleep apnea (adult) (pediatric) (ICD-10 - G47.33) Patient reports strict nightly use of his CPAP device. He has stated plan to discuss the Inspire device with [facility]. 05/15/2023 Spondylosis without myelopathy or radiculopathy, lumbar region (ICD-10 - M47.816) Could consider right L4, L5 medial branch blocks and possible RFA procedure, however, patient's prior fusion surgery could complicate the L4 portion of the procedure. Will address this possible set of procedures as well as possible repeat DCS trial procedure pending outcome of planned left sacral intervention(s). 03/20/2023 Vertebrogenic low back pain (ICD-10 - M54.51) Chronic axial lumbosacral spine pain. Updated imaging completed: imaging study reports reviewed with patient in detail. Will consider an updated DCS trial if patient were to desire such treatment: prior DCS trial with history of efficacy, however, patient did not proceed to possible DCS system implantation after the prior efficacious trial. He stated today that decision maybe was a mistake. 05/19/2023 Other specified anxiety disorders (ICD-10 - F41.8) Plan monitored anesthesia care 07/03/2023 Other chronic pain (ICD-10 - G89.29) Patient reports that taking his pain medication allows him to work outside. He states he was instructed to discontinue all acetaminophen and ibuprofen following GI work up. He anticipates possible upcoming hiatal hernia surgery. Plan to continue opioid medication management with discontinuation of acetaminophen. 09/11/2023 Sacroiliitis, not elsewhere classified (ICD-10 - M46.1) Left sacral RFA procedure with excellent benefit for low back and leg pain. Patient reports improvement in pain as of today's visit (09/11/23). 11/06/2023 Sacroiliitis, not elsewhere classified (ICD-10 - M46.1) Left sacral RFA procedure with excellent benefit for low back and leg pain. 12/25/2023 Sacroiliitis, not elsewhere classified (ICD-10 - M46.1) Left sacral RFA procedure with excellent benefit for low back and leg pain. 11/06/2023 Vertebrogenic low back pain (ICD-10 - M54.51) Chronic axial lumbosacral spine pain. Patient to notify this office if additional interventional treatment is desired. Anticoagulant therapy would be a confounding variable. 12/25/2023 Vertebrogenic low back pain (ICD-10 - M54.51) Chronic axial lumbosacral spine pain. Patient to notify this office if additional interventional treatment is desired. Anticoagulant therapy would be a confounding variable. 09/11/2023 Vertebrogenic low back pain (ICD-10 - M54.51) Chronic axial lumbosacral spine pain. Patient to notify this office if additional interventional treatment is desired. Anticoagulant therapy would be a confounding variable. 07/03/2023 Vertebrogenic low back pain (ICD-10 - M54.51) Chronic axial lumbosacral spine pain. Could consider addional nterventional treatment, such as a repeat DCS trial, as needed / desired by patient. Patient has deferred because of the excellent benefit achieved post sacral RFA procedure, as noted. Anticoagulant therapy would be a confounding variable. 03/20/2023 Pain in thoracic spine (ICD-10 - M54.6) Chronic axial thoracic spine pain. Imaging study completed. Report reviewed with patient in great detail. Patient not interested in referral for possible interventional treatment. DCS therapy might provide some relief. 05/15/2023 Vertebrogenic low back pain (ICD-10 - M54.51) Chronic axial lumbosacral spine pain. Updated imaging completed: imaging study reports reviewed with patient in detail. Will consider an updated DCS trial if patient were to desire such treatment: prior DCS trial with history of efficacy, however, patient did not proceed to possible DCS system implantation after the prior efficacious trial. He stated at a prior visit that decision maybe was a mistake. 01/07/2023 group home (current) use of opiate analgesic (ICD-10 - Z79.891) Patient has a total daily MED of 90. This places the [facility] in the [facility] high risk category for total daily opioid usage. 2022 opioid (OUD) risk tool score = 2. This places the patient in the low risk category. 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 Patient's current opioid preparation is not working as well as in the past. Patient with history of benefit from opioid rotation between hydromorphone, hydrocodone and oxycodone. Plan to continue oral opioid medication management with opioid rotation to oxycodone. 05/15/2023 Pain in thoracic spine (ICD-10 - M54.6) Chronic axial thoracic spine pain. Imaging study completed. Report previously reviewed with patient in great detail. Patient was not interested in referral for possible fluoroscopic guided interventional treatment. DCS therapy might provide some relief. Patient desires TPIs at today's visit. 07/03/2023 Obstructive sleep apnea (adult) (pediatric) (ICD-10 - G47.33) Patient continues to report strict nightly use of his CPAP device. He has stated plan to discuss the Inspire device with his [facility]. 11/06/2023 Obstructive sleep apnea (adult) (pediatric) (ICD-10 - G47.33) Patient continues to report strict nightly use of his CPAP device. 09/11/2023 Obstructive sleep apnea (adult) (pediatric) (ICD-10 - G47.33) Patient continues to report strict nightly use of his CPAP device. He has stated his plan to discuss the Inspire device with his [facility]. 12/25/2023 Obstructive sleep apnea (adult) (pediatric) (ICD-10 - G47.33) Patient continues to report strict nightly use of his CPAP device. 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 Plan to continue opioid medication management. 03/20/2023 Obstructive sleep apnea (adult) (pediatric) (ICD-10 - G47.33) Patient continues to report strict nightly use of his CPAP device. He has stated plan to discuss the Inspire device with his [facility]. 05/15/2023 Obstructive sleep apnea (adult) (pediatric) (ICD-10 - G47.33) Patient continues to report strict nightly use of his CPAP device. He has stated plan to discuss the Inspire device with his [facility]. 01/07/2023 Other [facility] more than 1 month of opioid prescriptions at a time, remaining eRx(s) will be sent in 30 and 60 days, as indicated. 09/11/2023 Other [facility] to [facility] inability to [facility] more than 1 month of opioid prescriptions at a time, remaining eRx will be sent in 28 days. 11/06/2023 Other [facility] to [facility] inability to [facility] more than 1 month of opioid prescriptions at a time, remaining eRx will be sent in 28 days. 12/25/2023 Other [facility] to [facility] inability to [facility] more than 1 month of opioid prescriptions at a time, remaining eRx will be sent in 28 days. 03/20/2023 Other [facility] to [facility] more than 1 month of opioid prescriptions at a time, remaining eRx will be sent in 30 days. 05/15/2023 Other [facility] to [facility] more than 1 month of opioid prescriptions at a time, remaining eRx will be sent in 30 days. 07/03/2023 Other [facility] to [facility] more than 1 month of opioid prescriptions at a time, remaining eRx will be sent in 28 days. Patient reports possible hiatal hernia surgery. PLAN OF TREATMENT Next Appt Details Provider Name:Emil rea, 01/22/2024 07:56:00 [facility] [place] [place] [phone], Provider Name:Emil rea, 02/19/2024 01:50:00 PM[facility] [place] [place] [id number], Insurance Providers Payer Name Payer Address Payer Phone Subscriber Number Group Number Insured Name Patient Relationship to Insured Coverage Start Date Coverage End Date [employer] [address] [place] [id number] Leon Tracey Self - patient is the insured MEDICAL (GENERAL) HISTORY Medical History History ICD Code Chronic pain Low back pain Lumbar spondylosis, disc disease and pos t-laminectomy syndrome Sacroiliitis Mid back pain Thoracic spondylosis, disc disease and s toney stenosis Cervical disc degeneration Headaches Long - term ankle pain and history of cl ubbed feet reported by patient Ankle brace fittings evaluat ion completed by Dr. Schwartz per prior patient report Major depressive disorder, recurrent Post traumatic stress disorder Essential hypertension Hypothyroidism Chronic liver disease Thyroid problems High cholesterol Aortic thoracic aneurysm Hiatal hernia Obstructive sleep apnea Obesity, moderate Surgical History Surgery Date(Month/Year) Left foot scope, 1997 Right foot arthroscopy, oste otomy wedge, achiles tendon lengthening, 1998 Right bicep and shoulder surgery, 2011 Left bicep and shoulder surgery, 2013 Wrist surgery, 2015 L4-L5 fusion / fixation, performed in [place], [place] by Dr. Mondragon, 2016 Right shoulder replacement, performed at [place], [place] by Dr. Madison, 12/10/17 Upper and lower GI, performed at [facility] by Dr. Duncan, 05/2018 Multiple dental extractions, performed at [facility], 04/05/19-05/09/19 Upper GI with biopies, performed at [facility], 06/17/23 Hospitalization History Reason Date(Month/Year) ER visit for tick fever, 07/2017
--- OUTSIDE RECORDS SUMMARY | 2023-12-30 15:28 | XMS_ITS ---
Author Name Unknown Organization [facility] Address [address] [place], [place] [id number] Care Team Providers Care Patient Accounting Representative Name Role Phone [facility] Primary Care Provider Jackie Emil Hughes MD Unavailable [phone] [place], [place] Unavailable Unavailable Lucero Arriaga Unavailable [phone] ALLERGIES Allergen (clinical drug ingredient) Drug/Non Drug Allergy documented on EMR Reaction Allergy Type Onset Date Status simvastatin simvastatin liver problems Drug Allergy Active rosuvastatin Crestor liver problems Drug Allergy Active REASON FOR VISIT Patient states he is here today for refills and to let you know what is going on {mid and low back pain} MEDICATIONS Medication SIG (Take, Route, Frequency, Duration) Notes Start Date End Date Status tiZANidine 4 mg 1 tab po orally QHS prn spasm Active topiramate 25 mg 1 tab orally 2 times a day Active Slo-Niacin 500 mg orally as directed Active sucralfate 1 g/10 mL 10 mL orally 4 time s a day (before meals and at bedtime) Active Wixela Inhub 100 mcg-50 mcg 1 INH inhaled 2 times a day for 30 day(s) 09/11/2023 Active Plavix 75 mg 1 tab(s) orally once a day for 30 day(s) Active Saw [place] OTC, as directed Active [place]-3 Active omeprazole 40 mg 1 cap orally once a day Active Narcan 4 mg/0.1 mL as directed intranasally once 07/08/2019 Active Moringa [place] Powder as directed Active multivitamin Multiple Vitamins orally once a day ingris juice supplement, clove supplement Active levothyroxine 137 mcg (0.137 mg) 1 tab orally once a day Active magnesium citrate 125 mg 1 cap orally once a day Active mupirocin topical 2% 1 grzegorz applied topically 3 times a day Active fluorouracil topical 5% 1 grzegorz applied topically 2 times a day Active hydrochlorothiazide-t riamterene 50 mg-75 mg 1 tab orally once a day Active Diclofenac Sodium Topical 1% 4 grams applied topically Q6H prn pain for 30 days Active oxyCODONE 10 mg 1 tab orally Q4-6H prn pain (max 3 per day; hold within 4H of planned sleep) for 28 days ICD-10: G89.29 11/06/2023 Active Co-Q10 100 mg orally as directed Active Aleve sodium 220 mg 2 caps orally 1 X PRN Active ashwagandha as directed Active buPROPion 150 mg/24 hours 1 tab orally once a day (in the morning) Active aspirin 81 mg 1 tab orally once a day Active atenolol 100 mg 1 tab orally once a day Active SOCIAL HISTORY Sex Assigned At : Social History Observation Description Sex Assigned At Unknown alcohol Question Answer Notes Did you have a drink containing alcohol in the p ast year? No Points 0 Interpretation Negative VITAL SIGNS Temperature 97.6 degrees Fahrenheit 11/06/19 24 Blood pressure systolic 151 mm Hg 11/06/19 24 Blood pressure diastolic 86 mm Hg 024 Height 70 in 11/06/2023 Weight 267.8 lbs 11/06/2023 Oximetry 94 % 11/06/2023 BMI 38.42 kg/m2 11/06/2023 Encounters Encounter Location Date Provider Diagnosis [facility] [address] [place], [place] [id number] 11/06/2023 Lucero Villegas Pain in thoracic spi ne M54.6 ; Other chronic pain G89.29 ; Myalgia, other site M79.18 ; Sacroiliitis, not elsewhere classified M46.1 ; Vertebrogenic low back pain M54.51 and Obstructive sleep apnea (adult) (pediatric) G47.33 ASSESSMENTS Encounter Date Diagnosis Assessment Notes Treatment Notes Treatment Clinical Notes 11/06/2023 Pain in thoracic spine (ICD-10 - M54.6) Chronic axial thoracic spine pain. Patient reports he is tentatively scheduled for T6-T10 fusion with Dr. Vargas in 12/2023. 11/06/2023 Other chronic pain (ICD-10 - G89.29) Patient reports that taking his pain medication allows him to start Physical Therapy in preparation for upcoming surgery. Plan to continue opioid medication management. 11/06/2023 Myalgia, other site (ICD-10 - M79.18) History of TPIs for his left mid back pain with efficacy reported. Will consider additional TPIs as needed / desired by patient. 11/06/2023 Sacroiliitis, not elsewhere classified (ICD-10 - M46.1) Left sacral RFA procedure with excellent benefit for low back and leg pain. 11/06/2023 Vertebrogenic low back pain (ICD-10 - M54.51) Chronic axial lumbosacral spine pain. Patient to notify this office if additional interventional treatment is desired. Anticoagulant therapy would be a confounding variable. 11/06/2023 Obstructive sleep apnea (adult) (pediatric) (ICD-10 - G47.33) Patient continues to report strict nightly use of his CPAP device. 11/06/2023 Other Due to the [place] [facility]'s inability to store more than 1 month of opioid prescriptions at a time, remaining eRx will be sent in 28 days. PLAN OF TREATMENT Medication Medication Name Sig Start Date Stop Date Notes Diclofenac Sodium Topical 1% 4 grams applied topically Q6H prn pain for 30 days oxyCODONE 10 mg 1 tab orally Q4-6H p rn pain (max 3 per day; hold within 4H of planned sleep) for 28 days 11/06/2023 ICD-10: G89.29 Treatment Notes Assessment Notes Pain in thoracic spine Chronic axial tho racic spine pain. Patient reports he is tentatively scheduled for T6-T10 fusion with Dr. Vargas in 12/2023. Other chronic pain Patient reports that taking his pain medication allows him to start Physical Therapy in preparation for upcoming surgery. Plan to continue opioid medication management. Myalgia, other site History of TPIs for [...] his CPAP device. Other Due to the [facility] inability to store more than 1 month of opioid prescriptions at a time, remaining eRx will be sent in 28 days. Next Appt Details Follow Up: 2 month Rx visit. , Reason: Provider Name:Emil Thibodeaux son, 01/22/2024 07:56:00 AM, [address] [place], [place], [id number], Provider Name:Emil rea, 02/19/2024 01:50:00 PM, [facility], [place], [place], [id number], History and Physical Notes * HPI (History [...] Thi s pain is described as constant aching. This pain extends into bilateral ribs and muscle. The mid-back pain is aggravated by bending over, lifting, coughing, sneezing, and riding on his tractor. The mid-back pain is somewhat alleviated with stretching and sitting straight upright surgery Medications OxyIR (oxycodone) 10 mg, 1 tab, orally, Q4-6H prn pain (max 3 per day; hold within 4H of planned sleep), 28 days, 84, Refills 0. Notes: Prescriptions given (2) on 09/11/23. 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 Last fill date 10/10/23 diclofenac (Voltaren) topical gel, 1%, 4 grams, applied topically, Q6H prn pain, 30 days, 500 Gram, Refills 0. Notes: Prescriptions given (2) on 09/11/23. Patient reports good benefit Plavix (clopidogrel) and aspirin are man aged [...] benefit; topical agent therapy with some benefit; massage therapy some benefit; TENS unit therapy with history of no benefit; chiropractic therapy with history of no benefit (2015); physical therapy with history of no benefit (2017); ice/heat therapy with history of some benefit (2017); remote injection therapy (1595-3713 spinal injections) with history of no benefit; patient has also has had injection therapy in shoulders, feet, thumbs, elbows and neck with history of no benefit; history of acupuncture therapy; physical therapy with undetermined benefit thus far (initiated in 10/2023 - on-going) Medication history: Percocet (good benef it); Naproxen 375 mg; morphine (good benefit); methadone 10 mg TID (good benefit); Dilaudid 4 mg (good benefit); [place] 10/325 (good benefit); ibuprofen 400 mg (oral [...]
--- OUTSIDE RECORDS SUMMARY | 2023-12-30 15:28 | XMS_ITS ---
Author Name Unknown Organization [facility] Address [address] [place], [place] [id number] Care Team Providers Care Metal Box Maker Name Role Phone [facility] Primary Care Provider Jackie vailable Cooper FLORES, Emil Unavailable [phone] [place], [place] Unavailable Unavailable REASON FOR VISIT [facility] Rx MEDICATIONS Medication SIG (Take, Route, Frequency, Duration) Notes Start Date End Date Status Diclofenac Sodium Topical 1% 4 grams applied topically Q6H prn pain for 30 day(s) (auth as per 11/06/23 visit) Active oxyCODONE 10 mg 1 tab orally Q4-6H prn pain (max 3 per day; hold within 4H of planned sleep) for 28 days ICD-10: G89.29, (auth as per 11/06/23 visit) 12/04/2023 Active Encounters Encounter Location Date Provider Diagnosis [facility] [address] [place], [place] [id number] 12/04/2023 Emil Gamboa PLAN OF TREATMENT Medication Medication Name Sig Start Date Stop Date Notes Diclofenac Sodium Topical 1% 4 grams applied topically Q6H prn pain for 30 day(s) (auth as per 11/06/23 visit) oxyCODONE 10 mg 1 tab orally Q4-6H p rn pain (max 3 per day; hold within 4H of planned sleep) for 28 days 12/04/2023 ICD-10: G89.29, (auth as per 11/06/23 visit) Next Appt Details Provider Name:Emil Thibodeaux son, 01/22/2024 07:56:00 AM, [address], [place], [place], [id number], Provider Name:Emil Thibodeaux son, 02/19/2024 01:50:00 PM, [facility] [place], [place], [id number],
[2024-01-12] VITALS (19 sets, daily range): BP systolic 82–145; BP diastolic 48–82; PULSE 53–73; RESP 14–20; TEMP 36.1–36.6; O2SAT 92–99; BMI 36.6
--- NOTE | 2024-01-12 | XR_ITS ---
WS: [id number] XR thoracic spine 2V [id number] REASON FOR EXAM: GIDEON PICS FINDINGS: Posterior decompression with posterior pedicle screws in 5 consecutive (likely T6-T10) thoracic verte bral bodies with interconnecting rods. Surgical appliances are intact and in proper position and alignment. XR/XR thoracic spine 2V [id number] IMPRESSION: Posterior thoracic fusion.
--- OUTSIDE RECORDS SUMMARY | 2024-01-12 07:23 | XMS_ITS ---
Author Name Unknown Organization [facility] Address [address] [place], [place] [id number] Care Team Providers Care Brand Sales Manager Name Role Phone [facility] [place] Primary Care Provider Jackie Emil Hughes MD Unavailable [phone] [place], [place] Unavailable Unavailable Lucero Arriaga Unavailable [phone] ALLERGIES Allergen (clinical drug ingredient) Drug/Non Drug Allergy documented on EMR Reaction Allergy Type Onset Date Status simvastatin simvastatin liver problems Drug Allergy Active rosuvastatin Crestor liver problems Drug Allergy Active REASON FOR VISIT Patient states he is here today for prescriptions {mid back pain} MEDICATIONS Medication SIG (Take, Route, [...] orally 2 times a day Active Saw [place] OTC, as directed Active Plavix 75 mg 1 tab(s) orally once a day for 30 day(s) Active Slo-Niacin 500 mg orally as directed Active tiZANidine 4 mg 1 tab po orally QHS prn spasm Active sucralfate 1 g/10 mL 10 mL orally 4 time s a day (before meals and at bedtime) Active White-3 Active Narcan 4 mg/0.1 mL as directed [...] tab orally once a day Active Moringa [place] Powder as directed Active buPROPion 150 mg/24 [...] Location Date Provider Diagnosis [facility] [address] [place], [place] [id number] 12/25/2023 Lucero Villegas Pain in thoracic spi ne M54.6 ; Other chronic pain G89.29 and Obstructive sleep apnea (adult) (pediatric) G47.33 ASSESSMENTS Encounter Date Diagnosis Assessment Notes Treatment Notes Treatment Clinical Notes 12/25/2023 Pain in thoracic spine (ICD-10 - M54.6) Dr. Vargas's notes reviewed. History of chronic axial thoracic spine pain. Patient reports he is tentatively scheduled for a lower thoracic spinal surgery with Dr. Vargas on 01/12/2024. 12/25/2023 Other chronic pain (ICD-10 - G89.29) Patient with history of benefit received with opioid rotation between hydromorphone, hydrocodone and oxycodone. Patient would like to rotate from oxycodone to hydromorphone due to his upcoming spine surgery. Plan to continue oral opioid medication management with opioid rotation to hydromorphone. 12/25/2023 Obstructive sleep apnea (adult) (pediatric) (ICD-10 - G47.33) Patient continues to report strict nightly use of his CPAP device. 12/25/2023 Other Due to the [place] [facility]'s inability to store more than 1 [...] Notes Assessment Notes Pain in thoracic spine Dr. Vargas's notes reviewed. History of chronic axial thoracic spine pain. Patient reports he is tentatively scheduled for a lower thoracic spinal surgery with Dr. Vargas on 01/12/2024. Other chronic pain Patient with history of benefit received with opioid rotation between hydromorphone, hydrocodone and oxycodone. Patient would like to rotate from oxycodone to hydromorphone due to his upcoming spine surgery. Plan to continue oral opioid medication management with opioid rotation to hydromorphone. Obstructive sleep apnea (sunshine lt) (pediatric) Patient continues to report strict night ly use of his CPAP device. Other Due to the [place] [facility] inability to store more than 1 month of opioid prescriptions at a time, remaining eRx will be sent in 28 days. Next Appt Details Follow Up: 2 month Rx visit. , Reason: Provider Name:Emil Okeefehardy rea, 01/22/2024 07:56:00 AM, [address] [facility], [place], [place], [id number], Provider Name:Emil Thibodeaux son, 02/19/2024 01:50:00 PM, [address] [facility], [place], [place], [id number], History and Physical Notes * HPI (History of Present Illness) Category Sub-Category Detail Notes Thoracic Spine injury: numbness and tingling pain in the mid back. Thi s pain is described as constant aching with tightness. This pain extends into bilateral ribs and muscles. The mid-back pain is aggravated by lying flat, bending over, and arising from a seated position. The mid-back pain is somewhat [...] extremity symptom resolution for aproximately 4 months (a prior updated patient report) Previous Therapy Previous therapy: home exercise s / stretching therapy with some benefit; topical agent therapy with some benefit; TENS unit therapy with history of no benefit; chiropractic therapy with history of no benefit (2015); physical therapy with history of no benefit (2017); ice/heat therapy with history of some benefit (2017); remote injection therapy ([id number] spinal injections) with history of no benefit; [...] (good benefit); Dilaudid 4 mg (good benefit); [place] 10/325 (good benefit); ibuprofen 400 mg (oral [...] Notes received from: Dr. Vargas; see scanned documents, reviewed Non Compliance/Failure to Fo llow Treatment Agreement [...]
--- OUTSIDE RECORDS SUMMARY | 2024-01-12 07:24 | XMS_ITS ---
Author Name Unknown Organization [facility] Address [address] [place], [place] [phone] Care Team Providers Care Licensed Clinical Psychologist Name Role Phone [facility] Primary Care Provider Jackie Emil Hughes MD Unavailable [phone] [place], [place] Unavailable Unavailable Lucero Arriaga Unavailable [phone] ALLERGIES Allergen (clinical drug ingredient) Drug/Non Drug [...] a day for 30 day(s) Active Saw [place] OTC, as directed Active [place]-3 Active omeprazole 40 mg 1 cap orally once a day Active Narcan 4 mg/0.1 mL as directed intranasally once 07/08/2019 Active Moringa [place] Powder as directed Active multivitamin Multiple Vitamins [...] Location Date Provider Diagnosis [facility], [id number] [place], [place] [id number] 11/06/2023 Lucero Villegas Pain in thoracic spi [...] CPAP device. 11/06/2023 Other Due to the [place] [facility]'s inability to store more than 1 [...] his CPAP device. Other Due to the [facility] inability to store more than 1 month of opioid prescriptions at a time, remaining eRx will be sent in 28 days. Next Appt Details Follow Up: 2 month Rx visit. , Reason: Provider Name:Emil Thibodeaux son, 01/22/2024 07:56:00 AM, [address] [place], [place], [id number], Provider Name:Emil rea, 02/19/2024 01:50:00 PM, [facility], [place], [place], [phone], History and Physical Notes * HPI (History [...] of some benefit (2017); remote injection therapy (8280-3799 spinal injections) with history of no benefit; [...] (good benefit); Dilaudid 4 mg (good benefit); [place] 10/325 (good benefit); ibuprofen 400 mg (oral [...]
--- OUTSIDE RECORDS SUMMARY | 2024-01-12 07:24 | XMS_ITS ---
Author Name Unknown Organization [facility] [employer] Address [address] [place], [place] [id number] Care Team Providers Care Waterproof Bag Sewer Name Role Phone [facility] Primary Care Provider Jackie vailable Cooper FLORES, Emil Unavailable [phone] [place], [place] Unavailable Unavailable REASON FOR VISIT [facility] Rx [...] Location Date Provider Diagnosis [facility], [facility] [address] [place], [place] [id number] 12/04/2023 Emil Gamboa PLAN OF TREATMENT Medication [...] Provider Name:Emil Thibodeaux son, 01/22/2024 07:56:00 AM, [address], [place], [place], [id number], Provider Name:Emil Thibodeaux son, 02/19/2024 01:50:00 PM, [facility], [place], [place], [phone],
--- OUTSIDE RECORDS SUMMARY | 2024-01-12 07:24 | XMS_ITS | Patient Health Record ---
Author Name Unknown Organization [facility] Address [address] [place], [place] [id number] Care Team Providers Care Chief Optometry Service Name Role Phone [facility] Primary Care Provider Jackie vailable Emil Gamboa MD Unavailable [phone] [place], [place] Unavailable Unavailable Lucero Arriaga Unavailable [phone] ALLERGIES Allergen (clinical drug ingredient) Drug/Non Drug Allergy documented on EMR Reaction Allergy Type Onset Date Status simvastatin simvastatin liver problems Drug Allergy Active rosuvastatin Crestor liver problems Drug Allergy Active REASON FOR REFERRAL Diagnosis 1 Vertebrogenic low ba ck pain (M54.51) Referring Provider First Name Gary Jan ff Referring Provider Last Name PR Referred Organization [facility] Referred Provider Emil Gamboa Referred Address [address] [place], [id number], Referred Provider 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 Referral Priority Routine Reason Evaluation for possi ble surgical intervention Diagnosis 1 Pain in thoracic spi ne (M54.6) Referral Organization [facility] Referring Provider First Name Lucero Referring Provider Last Name [place] Referring Provider Speciality Nurse Prac titioner Referred Provider River Vargas Referred Provider Specialty Orthopedic S urgery General Notes needs Craig DALAL All ison M 09/30/2023 11:31:45 AM > RFS PREPARED/FAXED TO Denny DOMINGUEZ Brenda 10/13/2023 03:52:42 PM > referral faxed, Yasmin Baldwin 11/03/2023 10:18:53 AM > spoke with Deandra at Dr. Vargas's office - patient was seen on 10/28/23 and she is faxing office notes Referral Priority Routine Referral Appointment Date 10/28/2023 MEDICATIONS Medication SIG (Take, Route, Frequency, Duration) Notes Start Date End Date Status Kilgore-3 Active Narcan 4 mg/0.1 mL as directed intranasally once 07/08/2019 Active omeprazole 40 mg 1 cap orally once a day Active Moringa Dauphin Powder as directed Active mupirocin topical 2% [...] applied topically Q6H prn pain Active Saw [place] OTC, as directed Active Plavix 75 mg [...] elsewhere classified (M46.1) Active confirmed Solitary sacroiliitis (759817044) Problem Low back pain (M54.5) Active confirmed Low back pain (519946666) Problem Spondylosis without myelopathy or radiculopathy, lumbar region (M47.816) Active confirmed Lumbosacral spondylosis without myelopathy (70019434) Problem retirement (current) use of opiate analgesic (Z79.891) Active confirmed High ris k drug monitoring status (365745225) Problem Other specified anxiety disorders (F41.8) Active confirmed Anxiety disorder (317539627) Problem Obstructive sleep apnea (adult) (pediatric) (G47.33) Active confirmed Obstructive sleep apnea syndrome (70971647) Problem Other chronic pain (G89.29) Active confirmed Chronic pain (37530712) Problem Pain in thoracic spine (M54.6) Active confirmed Pain in thoracic spine (964038460) Problem Postlaminectomy syndrome, not elsewhere classified (M96.1) Active confirmed Post-lami nectom y syndrome (29856873) Problem 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) Active confirmed Long-term current use of drug therapy (811397227) Problem Spinal stenosis, lumbar region without neurogenic claudication (M48.061) Active confirmed Spinal stenosis of lumbar region (04161345) Problem Spinal stenosis, lumbar region with neurogenic claudication (M48.062) Active confirmed Neurogenic claudication (203808552) Problem Myalgia, other site (M79.18) Active confirmed Muscle pain (34743651) Problem Vertebrogenic low back pain (M54.51) Active confirmed Pain in l umbar spine (987185477) VITAL SIGNS Temperature 97.3 degrees Fahrenheit 12/25/2023 Blood pressure diastolic 84 mm Hg 12/25/2023 Oximetry 92 % 12/25/2023 Height 70 in 12/25/2023 Blood pressure systolic 144 mm Hg 12/25/2023 Weight 252.6 lbs 12/25/2023 BMI 36.24 kg/m2 12/25/2023 Encounters Encounter Location Date Provider Diagnosis [facility] [address] [place], [place] [id number] 01/23/2023 Emil Gamboa [facility] [address] [place], [place] [id number] 02/20/2023 Emil Gamboa [facility] [address] [place], [place] [id number] 03/20/2023 Emil Gamboa Sacroiliitis, not elsewhere classified M46.1 ; Other specified anxiety disorders F41.8 ; Spondylosis without myelopathy or radiculopathy, lumbar region M47.816 ; Vertebrogenic low back pain M54.51 ; Pain in thoracic spine M54.6 ; Other chronic pain G89.29 and Obstructive sleep apnea (adult) (pediatric) G47.33 [facility] [address] [place], [place] [id number] 04/17/2023 Emil Gamboa [facility] [address] [place] [address] 05/05/2023 Emil Gamboa Sacroiliitis, not elsewhere classified M46.1 and Other specified anxiety disorders F41.8 [facility] [address] [place], [place] [id number] 05/06/2023 Emil Gamboa [facility] [address] [place], [place] [id number] 05/15/2023 Emil Gamboa Sacroiliitis, not elsewhere classified M46.1 ; Other specified anxiety disorders F41.8 ; Myalgia, other site M79.18 ; Spondylosis without myelopathy or radiculopathy, lumbar region M47.816 ; Vertebrogenic low back pain M54.51 ; Pain in thoracic spine M54.6 ; Other chronic pain G89.29 and Obstructive sleep apnea (adult) (pediatric) G47.33 [facility] [address] [place] [address] 05/19/2023 Emil Gamboa Spondylosis without myelopathy or radiculopathy, lumbar region M47.816 ; Sacroiliitis, not elsewhere classified M46.1 and Other specified anxiety disorders F41.8 [facility] [address] [place], [place] [id number] 06/02/2023 Emil Gamboa [facility] [address] [place], [place] [id number] 06/12/2023 Emil Gamboa [facility] [address] [place], [place] [id number] 07/03/2023 Emil Gamboa Myalgia, other site M79.18 ; Pain in thoracic spine M54.6 ; Sacroiliitis, not elsewhere classified M46.1 ; Other chronic pain G89.29 ; Vertebrogenic low back pain M54.51 and Obstructive sleep apnea (adult) (pediatric) G47.33 [facility] [email or web address] [place], [place] [id number] 07/31/2023 Emil Gamboa [facility] [address] [place], [place] [id number] 09/11/2023 Lucero Villegas Pain in thoracic spi ne M54.6 ; Other chronic pain G89.29 ; Myalgia, other site M79.18 ; Sacroiliitis, not elsewhere classified M46.1 ; Vertebrogenic low back pain M54.51 and Obstructive sleep apnea (adult) (pediatric) G47.33 [facility] [email or web address] [place], [place] [id number] 10/08/2023 Emil Gamboa [facility] [address] [place], [place] [id number] 11/06/2023 Lucero Villegas Pain in thoracic spi ne M54.6 ; Other chronic pain G89.29 ; Myalgia, other site M79.18 ; Sacroiliitis, not elsewhere classified M46.1 ; Vertebrogenic low back pain M54.51 and Obstructive sleep apnea (adult) (pediatric) G47.33 [facility] [email or web address] [place], [place] [id number] 12/04/2023 Emil Gamboa [facility] [address] [place], [place] [id number] 12/25/2023 Lucero Villegas Pain in thoracic spi ne M54.6 ; Other chronic pain G89.29 and Obstructive sleep apnea (adult) (pediatric) G47.33 ASSESSMENTS Encounter Date Diagnosis Assessment Notes Treatment Notes Treatment Clinical Notes 03/20/2023 Sacroiliitis, not elsewhere classified (ICD-10 - [...] spinal surgery with Dr. Vargas on 01/12/2024. 11/06/2023 Other chronic pain (ICD-10 - G89.29) Patient reports that taking his pain medication allows him to start Physical Therapy in preparation for upcoming surgery. Plan to continue opioid medication management. 11/06/2023 Myalgia, other site (ICD-10 - M79.18) History of TPIs for his left mid back pain with efficacy reported. Will consider additional TPIs as needed / desired by patient. 12/25/2023 Obstructive sleep apnea (adult) (pediatric) (ICD-10 - G47.33) Patient continues to report strict nightly use of his CPAP device. 12/25/2023 Other chronic pain (ICD-10 - G89.29) Patient with history of benefit received with opioid rotation between hydromorphone, hydrocodone and oxycodone. Patient would like to rotate from oxycodone to hydromorphone due to his upcoming spine surgery. Plan to continue oral opioid medication management with opioid rotation to hydromorphone. 09/11/2023 Myalgia, other site (ICD-10 - M79.18) [...] / upper lumbar area at today's visit. 03/20/2023 Spondylosis without myelopathy or radiculopathy, lumbar region (ICD-10 - M47.816) Could consider right L4, L5 medial branch blocks and possible RFA procedure, however, patient's prior fusion surgery could complicate the L4 portion of the procedure. Will address this possible set of procedures as well as possible repeat DCS trial procedure pending outcome of planned left sacral intervention(s). 05/15/2023 Spondylosis without myelopathy or radiculopathy, lumbar [...] benefit for low back and leg pain. 09/11/2023 Vertebrogenic low back pain (ICD-10 - M54.51) Chronic axial lumbosacral spine pain. Patient to notify this office if additional interventional treatment is desired. Anticoagulant therapy would be a confounding variable. 11/06/2023 Vertebrogenic low back pain (ICD-10 - [...] visit that decision maybe was a mistake. 03/20/2023 Other chronic pain (ICD-10 - G89.29) [...] [facility] 05/15/2023 Other chronic pain (ICD-10 - G89.29) [...] the Inspire device with [facility]. 09/11/2023 Other Due to the [facility] inability to store more than 1 [...] 28 days. 03/20/2023 Other Due to the [facility] inability to store more than 1 month of opioid prescriptions at a time, remaining eRx will be sent in 30 days. 05/15/2023 Other Due to the [facility] inability to store more than 1 month of opioid prescriptions at a time, remaining eRx will be sent in 30 days. 07/03/2023 Other Due to the [facility] inability to store more than 1 month of opioid prescriptions at a time, remaining eRx will be sent in 28 days. Patient reports possible hiatal hernia surgery. PLAN OF TREATMENT Next Appt Details Provider Name:Emil rea, 01/22/2024 07:56:00 AM[facility] [place] [facility] [place] [phone], Provider Name:Emil rea, 02/19/2024 01:50:00 PM[facility] [place] [place], [id number], Insurance Providers Payer Name Payer Address Payer Phone Subscriber Number Group Number Insured Name Patient Relationship to Insured Coverage Start Date Coverage End Date [employer] [address] [place] [id number] Leon Tracey Self - patient is the insured MEDICAL (GENERAL) HISTORY Medical History History ICD Code Chronic pain Low back pain Lumbar spondylosis, disc disease and pos t-laminectomy syndrome Sacroiliitis, left sacral RF A procedure with history of excellent benefit for 4 months for left sacral axial pain and left lower extremity pain Mid back pain Thoracic spondylosis, disc disease, spin al stenosis and related myalgias Cervical disc degeneration Headaches Long - term [...] bicep and shoulder surgery, 2013 Wrist surgery, 2016 L4-L5 fusion / fixation, performed in [place], [place] by Dr. Mondragon, 2016 Right shoulder replacement, performed at [facility] in [place], [place] by Dr. Madison, 12/10/17 Upper and lower GI, performed at [facility] by Dr. Duncan, 05/2018 Multiple dental extractions, performed at [facility], 04/05/19-05/09/19 Upper GI with biopies, performed at [facility], 06/17/23 Hospitalization History Reason Date(Month/Year) ER visit for tick fever, 07/2017
[2024-01-12] MEDS: sodium chloride 0.9% 1,000 ML 30 ML IV (07:56)
--- NOTE | 2024-01-12 07:58 | W.PM.OPSUD ---
Surgery/Procedure H&P Update DATE OF PROCEDURE: January 12, 2024 DATE H&P PERFORMED: 01/09/24 H&P UPDATE INFORMATION: I have reviewed H&P completed within last 30 days, I have examined patient prior to procedure and No changes to prior documentation PREOP DIAGNOSIS: Thoracic spondylosis with myelopathy PLANNED PROCEDURE: Operation Date: 01/12/24 09:00 Proposed Procedures p Spinal Fusion PSF(Not Applicable) - River Vargas DO s Lumbar Spine Decompression Lumbar Decompression(Not Applicable) - River Vargas DO
--- NOTE | 2024-01-12 08:04 | ANES.PREANE2 ---
Pre-Anesthetic Assessment Height/Weight: Height 1.78 m Weight 111.13 kg Temp Pulse Resp BP Pulse Ox O2 Del Method 97 F L 57 L 18 123/80 95 Room Air 01/12/24 07:33 01/12/24 07:33 01/12/24 07:33 01/12/24 07:33 01/12/24 07:33 01/12/24 07:33 Preop Diagnosis: Thoracic spondylosis with myelopathy Operation Date: 01/12/24 09:00 Proposed Procedures p Spinal Fusion PSF(Not Applicable) - River Vargas DO s Lumbar Spine Decompression Lumbar Decompression(Not Applicable) - River Vargas DO Familial anesthetic complications: None Was Beta Ciera taken within 24 hours: N/A Was Clonidine taken within 24 hours: N/A Last intake: Intake Last Liquid Date 01/11/24 Last Liquid Time 22:30 Last Solid Date 01/11/24 Last Solid Time 22:30 Social No alcohol and No tobacco Exam alert, oriented x 3, clear to auscultation bilaterally and regular rate & rhythm Airway Mallampati: Class IV Dentition: other (missing) Pulmonary Chronic Obstructive Pulmonary Disease (rescue inhaler only - last use 2 weeks ago) and Sleep Apnea CV/HEM Hypertension states able to achieve 4 METS w/ out CP, SOB, Syncope Holding plavix he states [facility] for prevention EKG SINUS RHYTHM SEPTAL MYOCARDIAL INFARCTION , PROBABLY OLD [40+ ms Q WAVE IN V1/V2] Nonspecific T wave changes Compared to ECG 08/02/2022 18:28:02 Myocardial infarct finding now present ST (T wave) deviation no longer present Electronically Signed On 11-29-2023 18:46:22 CDT by Barbie Doyle M.D. Anesthetic Plan ASA status: 3 Anesthesia: General Risk of > 500 ml blood loss (7ml/kg in children): No Medications/Allergies Home Medications Medication Instructions Recorded Confirmed Last Taken Type ammonium lactate 12 % lotion 1 applic topical BID #400 grams 03/10/23 01/09/24 06/10/23 Rx diclofenac sodium 1 % topical gel 2 g topical BID PRN Muscle Pain 03/10/23 01/09/24 06/15/23 History clopidogrel 75 mg tablet (Plavix) 75 mg PO DAILY 06/04/23 01/09/24 12/29/23 History atenolol 100 mg tablet 100 mg PO BEDTIME 06/17/23 01/12/24 01/11/24 History AFO to the right #1 ea 09/15/23 12/09/23 Unknown Rx Orthopedic shoe package #1 ea 09/15/23 12/09/23 Unknown Rx modify AFO to left to non #1 ea 09/15/23 12/09/23 Unknown Rx articulating hydromorphone 4 mg tablet 4 mg PO Q4H 01/09/24 01/12/24 01/12/24 History tamsulosin 0.4 mg capsule 0.4 mg PO DAILY 01/09/24 01/12/24 01/11/24 History triamterene 75 1 tab PO DAILY 01/09/24 01/12/24 01/11/24 History mg-hydrochlorothiazide 50 mg tablet Allergies Allergy/AdvReac Type Severity Reaction Status Date / Time Aoeqozq-ARF-AwP Reductase Allergy Unknown Verified 01/09/24 09:31 Inhibitor Current Medications Generic Name Dose Route Start Last Admin Trade Name Freq PRN Reason Stop Dose Admin Sodium Chloride 1,000 mls @ 30 mls/hr 01/12/24 07:30 01/12/24 07:56 Sodium Chloride 0.9% IV 01/13/24 07:29 30 mls/hr .Q24H MARYBEL Administration PFSH Anesthesia Medical History No pertinent past medical history Social History (Updated 01/09/24 @ 09:35 by Nicole Medeiros MD) Smoking and tobacco/nicotine status: former use of tobacco/nicotine Quit status (tobacco/nicotine): has quit using Substance/Drug Use: never Data Anesthesia Cardiac Studies: No Data to Display
[2024-01-12] MEDS: gabapentin 300 mg Capsule PO (08:05)
[2024-01-12] MEDS: ceFAZolin 2,000 mg SDV 2000 MG IVP ×2 (08:30→17:23)
[2024-01-12] MEDS: lidocaine-epi 1% 20 mL INJ INJECTION (09:50)
[2024-01-12] MEDS: vancomycin 1,000 MG SDV 1000 MG XX (09:51)
--- NOTE | 2024-01-12 12:02 | P.OP_ITS ---
Operative Report Date of procedure: January 12, 2024 Pre-op diagnosis: Thoracic stenosis with myelopathy Post-op diagnosis: same Procedure done: 1. T6-T10 posterior spine fusion 2. T6-T10 posterior instrumentation 3. T7-8 laminectomy with partial facetectomies 4. T8-9 laminectomy and partial facetectomies 5. T9-10 laminectomy with partial facetectomies 6. Use of computer navigation/stereotactic for the spine 7. Use of autograft 8. Use of allograft ostioamp bone graft Surgeon: River Vargas DO Estimated blood loss (mL): 600 Procedure: 1. T6-T10 posterior spine fusion 2. T6-T10 posterior instrumentation 3. T7-8 laminectomy with partial facetectomies 4. T8-9 laminectomy and partial facetectomies 5. T9-10 laminectomy with partial facetectomies 6. Use of computer navigation/stereotactic for the spine 7. Use of autograft 8. Use of allograft ostioamp bone graft Patient brought the op suite after going anesthesia placed in the prone position. All areas impingement well-padded. Patient's prepped draped normal sterile fashion. Skin incision was made from T6-T10. Subperiosteal dissection was made out to the transverse processes of T6-T10 bilaterally. Next tension was brought to placing the fiducial. The spinous process clamp was clamped onto the T11 vertebrae. Next the fiducial was attached to this. In the serum was brought and spun around the patient. This information was then loaded the computer later used for placement of the pedicle screws. Next tension was brought to placing the pedicle screws. This was done by using the gearshift probe which is linked to computer navigation. Followed by pedicle feeler followed by placing the screw using computer navigation. This was done from T6-T10 bilaterally. Screws were placed in each of these levels bilaterally at T6, T7, T8, T9 and T10. Next attention was brought to performing the laminectomy. First level that was decompressed was the T9-10 level. This was done by doing a laminectomy at T9 using the high-speed bur spinous process was taken down using the rongeur. Then the medial aspect of an most of the facet joint was taken down using the high- speed bur. The Kerrison rongeur was then used to take the remaining lamina and medial aspect of the facet joints bilaterally. The T9 nerve was traced out the T9-10 foramen. In the T10 nerve was traced around the T10 pedicle. Next tension was brought to the T8-9 level. This is done by doing a laminectomy at T8 again using high-speed bur and the rongeur. And then followed by using the high-speed bur to thin out the lamina further and then take medial aspect of the facet joint down bilaterally. The Kerrison was then used to take the remaining lamina and remaining medial aspect of facet joint. Ligamentum flavum was taken down from T8-T9 as well as T9-T10 ligamentum flavum was completely taken out as well. Nerves were then traced around and out the T8-9 foramen the T8 nerve was traced out the foramen and the T9 nerve was traced around the T9 pedicle. Next tension was brought to the T7-8 level. This again spinous process was taken down with a rongeur followed by the lamina with a high-speed bur. Medial aspect of facet joints taken down the high-speed bur as well and then the Kerrison rongeur was used to finish out the remaining laminectomy and medial aspect of facet joints were taken down again with the Kerrison rongeur and the ligamentum flavum was taken down from T7-T8 as well. The T7 nerve was traced out the T7-8 foramen bilaterally. In the T8 nerve was traced from the T8 pedicle bilaterally. Wounds were then irrigated. The rods were then attached bilaterally from T6 down to T10 bilaterally. Caps were torqued into position bilaterally. Then the transverse processes were decorticated with high-speed bur as well as the remaining lamina. And then the autograft and allograft were mixed and packed in the lateral gutters. This done bilaterally. Deep drain was placed vancomycin powder was placed and wound was closed in a layered fashion with 0 Vicryl 2-0 Vicryl and Monocryl suture. Sterile dressings were applied and patient was transferred to the PACU in stable condition.
[2024-01-12] MEDS: fentaNYL 50 mcg/mL INJ 2mL IVP (12:50)
--- NOTE | 2024-01-12 13:28 | PC.NURSE ---
rec'd verbal order from thc that pt was able to sit up and also roll to his side
--- NOTE | 2024-01-12 13:30 | ANE.PACU2 ---
Inpatient post-anesthesia follow up: Airway intact: Yes Vital signs: Temperature 97.0 F Pulse Rate 70 Respiratory Rate 18 Blood Pressure 115/66 Pulse Oximetry 99 Oxygen Delivery Me thod Nasal Cannula Oxygen Flow Rate 6 Fraction of Inspir ed Oxygen Hydration adequate: Yes Nausea and vomiting: No Pain level: 1 Mental status: Baseline
[2024-01-12] MEDS: lactated ringers 1,000 ML 90 ML IV (13:50)
[2024-01-12] MEDS: cetylpyridinium Lozenge 1 EACH MUCOUS MEM (13:51)
[2024-01-12] MEDS: ketorolac 30 mg/mL INJ IVP (19:37)
[2024-01-12] MEDS: atenolol 50 mg Tablet 100 MG PO (22:01)
[2024-01-13] VITALS (8 sets, daily range): BP systolic 120–147; BP diastolic 65–82; PULSE 66–77; RESP 16–18; TEMP 36.8–37.3; O2SAT 94–98
[2024-01-13] MEDS: lactated ringers 1,000 ML 90 ML IV ×2 (00:18→10:19)
[2024-01-13] MEDS: ceFAZolin 2,000 mg SDV 2000 MG IVP ×2 (00:19→08:36)
[2024-01-13] MEDS: acetaminophen 325 mg Tablet 650 MG PO (00:20)
[2024-01-13] MEDS: alum-mag-hydroxide-sime 30 mL UDC PO (00:20)
[2024-01-13] MEDS: docusate sodium 100 mg Capsule PO (08:36)
[2024-01-13] MEDS: tamsulosin 0.4 mg Capsule PO (08:36)
--- NOTE | 2024-01-13 10:21 | PC.CHAP ---
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 [] Patient/Family/Request visit [] Outpatient visit [] Follow-up visit [] Physician referral [] Code/Alert [x] Routine visit [] Staff referral [] Actively dying [] Patient sleeping [] Family support [] [] Out of room [] Palliative care [] [] Receiving care in room [] Pre-surgical visit [] Trauma [] Long length of stay [] ICU visit [] Other: Relational/Emotional Strength [x] Patient feels connected with others/family/visitors/staff [] Distress [] Loneliness/isolation [] Abandonment Spirituality of Patient [x] Person of Yana [] Attends Confucianism of their Yana [x] Believes in Prayer [] Reads Bible or Religion materials [] There are Spiritual issues to be addressed Apprentice Lineman Third Step Interventions [x] Prayer [x] Active listening [] Non-anxious presence [x] Spiritual/emotional support [] Crisis/trauma care [] Spiritual counseling [] Bereavement support [] Provided bereavement packet [] Provided Bible/devotional materials [] Provided toy/stuffed animal, coloring book to patient or family member [] Provided Communion [] Anointing/[place] [] Salvation [x] Completed spiritual assessment [] Other: Impact on Illness or Injury [] Angry [] Fearful [] Anxious [] Often cries [] Exhaustion [] Unable to work [] Unable to attend methodist [] Unable to walk/stand [] Unable to read [] Unable to drive [] Unable to eat/drink [] Unable to sleep [] Unable to be with family [] Patient intubated [] Other: Summary Time spent with patient 5 min
--- NOTE | 2024-01-13 13:15 | PM.DCS ---
Discharge Providers Date of Admission: 01/12/24 13:07 Date of Discharge: January 13, 2024 Attending Provider at Admission: River Vargas DO Attending Provider at Discharge: River Vargas DO Primary Care Provider: Shaye Siddiqui MD Reason for Visit Reason for Visit: M48.04 Physical Exam Narrative: Patient 5 out of 5 strength is walking the hallways no pain. Biggest problem is when he gets in and out of bed otherwise he is doing great. Will plan discharge him Urinary Catheter Management: Pugh: Cath Placed During This Visit: yes, but has since been removed by the nurse Reason for Continuing Indwelling Catheter: Decision to DC Catheter Urinary Catheter Date of Insertion: 01/12/24 Urinary Catheter Time of Insertion: 08:43 Date Urinary Catheter Removed: 01/13/24 Time Urinary Catheter Discontinued: 06:15 Discharge Data Studies Completed and Pending Completed Studies During Hospitalization Category Date Time Status XR thoracic spine 2V 11550 Routine Exams 01/12/24 00:00 Completed Radiology Impressions Thoracic Spine X-Ray 01/12/24 00:00 IMPRESSION: Posterior thoracic fusion. Laboratory Results Blood Type A Positive 01/12/24 07:58 Rho(D) Type Rh positive 01/12/24 07:58 Antibody Screen Negative 01/12/24 07:58 Vitals Last Vital Signs Temp 98.2 F 01/13/24 11:19 Pulse 66 01/13/24 11:19 Resp 18 01/13/24 11:19 BP 120/65 01/13/24 11:19 Pulse Ox 94 01/13/24 11:19 O2 Del Method CPAP 01/13/24 11:19 O2 Flow Rate 3 01/12/24 14:59 Discharge Plan Discharge Patient Disposition: Home Condition: Stable Prescriptions: New hydromorphone 4 mg tablet 4 - 8 mg PO Q4H PRN (Reason: pain) 7 Days Qty: 42 0RF Continued diclofenac sodium 1 % gel 2 g topical BID PRN (Reason: Muscle Pain) ammonium lactate 12 % lotion 1 applic topical BID Qty: 400 3RF Rx Instructions: Apply to feet for dry skin tamsulosin 0.4 mg capsule 0.4 mg PO DAILY triamterene-hydrochlorothiazid 75-50 mg tablet 1 tab PO DAILY atenolol 100 mg tablet 50 mg PO BEDTIME Held clopidogrel [Plavix] 75 mg tablet 75 mg PO DAILY Hold Instructions: Resume on 01/14/24. Discontinued hydromorphone 4 mg tablet 4 mg PO Q4H No Action (DME) modify AFO to left to non articulating See Rx Instructions .Route .MEDSUPPLY Qty: 1 0RF Rx Instructions: As directed by [facility] ([facility]) Orthopedic shoe package See Rx Instructions .Route .MEDSUPPLY Qty: 1 0RF Rx Instructions: As directed made by the sivakumar oquendo (ESMER) AFO to the right See Rx Instructions .Route .MEDSUPPLY Qty: 1 0RF Rx Instructions: made by ashlee Discharge Orders: Discharge Order (Routine); Ordered 01/13/24 Ordered By: River Vargas Other Ambulatory Orders: DME: Walker (Order) Location: None Selected Ordered By: River Vargas Discharge Diet: Advance as tolerated Discharge Activity: Limit activity as instructed Patient Instructions: Acute Wound Care (DC), Opioid Safety, Post Anesthesia Care Activity Restrictions/Additional Instructions: Thank you for [facility] for your care! The following is a list of instructions, from your provider, to follow upon your discharge to ensure you have the optimal recovery from your recent injury orsurgery. Follow-up care is a cedeno part of your treatment and safety. Be sure to make and go to all appointments, and call your doctor if you are having problems. If you do not already have a follow-up appointment made, call Dr. Vargas office in the next 1-3 days to make follow up appointment for 1 weeks at [phone]. It is also a good idea to know your test results and keep a list of the medicines you take. Medications will be prescribed for you at your provider's discretion. These medications are to be used as instructed; if they are taken more often that prescribed they will not be refilled early and in most cases will not be refilled at all. > When a refill is needed,you should contact joana savage 2-3 business days before your prescription runs out. Medications will NOT be refilled by [employer] teammate providers after hours! > Many pain medications contain Tylenol (Acetaminophen). Do not consume more than 4,000 mg of Tylenol per day in total with any combination ofmedications. > Pain medications can cause constipation. Please use an over the counter stool softener as directed, while taking pain medications. Consulty our local pharmacist with questions or recommendations on stool softeners. If constipation persists, contact our office or your primary care provider. > While under our care,you are not to receive pain medications or other controlled substances from any other provider unless our office is notified and approves. Any attempts to do so will result in refusal to prescribe any further pain medications and possible dismissal from our practice. Keep dressing on for 1 week we will change in the clinic ? Showering is permitted, however we ask that you do not take a bath, sit in a whirlpool / Jacuzzi, or go swimming for 1 month. For only the first 2 days after surgery, lt wilt be necessary for you to cover your wound/dressing with plastic and tape to keep it dry. ? Walking is essential for the healing process after surgery. We would like you to slowly advance your walking. This should be done on relatively flat clear ground (inside or out) or can be done on a treadmill. Remember this goal does not have to happen all at once, slowly increase your distance and duration. This can be broken into more more than one walk per day as tolerated. Patients who walk as directed after surgery rarely require Physical Therapy. In the unlikely event this issue arises your provider will direct hospital staff to make the appropriate arrangements. ? No lifting over 5 pounds {a gallon of milk) or bending/twisting until further notice. Each of these activities places an unnecessary amount of stress onto the body and can impede the delicate healing process. > Instead of bending at the waist, keep your back straight and bend at the knees. > Instead of twisting your torso, keep your back straight and turn your entire body with your feet. ? You may sleep in any position which makes you comfortable. Many patients find comfort sleeping in a reclining chair. It is not abnormal to have difficulty sleeping for the first several weeks following your surgery. We recommend trying Benadry! or Tylenol PM as directed to help with your sleeping difficulties. Both medications are over the counter and available withoutprescription. ? NO SMOKING!!! Smoking dramatically increases the probability of developing postoperative wound infections. ? Common complaints after lumbar and/or thoracic spine surgery include, but are not limited to: numbness and/or tingling in the legs, pain around the incision and surrounding tissues, muscle spasms, or stiffness of the middle to low back. Contact our office if these symptoms persist or if an acute change occurs. ? No driving for the first 3-5days, and not while taking narcotics [] until seen at your follow-up appointment and cleared. There are no restrictions for riding on short trips, however if you take a longer trip, arrangements should be made to make regular stops to get out of the vehicle and stretch . ? Swelling is an unfortunate event that will take place with any surgery and is the primary source of your postoperative discomfort. While walking and regular approved activities helps control inflammation, there are additional steps you can take to minimizeswelling. > Place ice over the surgical site and surrounding tissue for twenty minutes, followed by applying a low/medium heat (heating pad) for an additional twenty minutes every 1-2 hours as needed for painrelief. > You may use of over the counter anti-inflammatory medications (Ibuprofen, Motrin, Aleve, Advil, etc) as directed on the package label. These types of medicines wm significantly reduce the amount of discomfort you experience after surgery from swelling. It should be noted that if you have and allergy to any of these medications, or a history of ulcers or kidney disease you should consult you primary care provider prior to starting these medications. Discharge Attestations Time Spent in Discharge Care*: less than 30 min Quality Metrics Clinical Quality Measures [ No reported AMI, CVA or VTE this stay] Coding Level of Care Code Acute Code for Scott Nam
--- NOTE | 2024-01-13 15:02 | PC.NURSE ---
Discharge instructions provided to pt and his . Verbalizes understanding. To private vehicle via wheelchair with all belongings.
== END 2024-01-13 15:03 | disposition home health service (06) | DRG 448 ==
LOC: MEDSURG 13:10
PROVIDERS: Admitting Provider Orthopaedic Surgery; PCP Family Medicine; Visit Provider Orthopaedic Surgery
PROC: 0RG7071 Fusion of 2 to 7 Thoracic Vertebral Joints with Autologous Tissue Substitute, Posterior Approach, Posterior Column, Open Approach (ICD-10-PCS; principal; 2024-01-12 08:40)
PROC: 0RG7071 Fusion of 2 to 7 Thoracic Vertebral Joints with Autologous Tissue Substitute, Posterior Approach, Posterior Column, Open Approach (ICD-10-PCS; CPT 63005; 2024-01-12 08:40)
DX: M47.14 Other spondylosis with myelopathy, thoracic region (principal); J44.9 Chronic obstructive pulmonary disease, unspecified; Z79.02 Long term (current) use of antithrombotics/antiplatelets; Z87.891 Personal history of nicotine dependence
CPT/HCPCS: 36415; 51702; 72070; 76000; 86850; 86900; 97116; 97161; 97530; C1713; J0330; J0690; J1100; J1170; J1885; J2250; J2371; J2405; J2704; J2710; J3010; J3370; J3490; J7030; J7120; P9045

== ENCOUNTER → 2024-01-29 13:23 | Outpatient (BNVA) | payer OTHER, SELFPAY | PROVIDERS: PCP Family Medicine; Visit Provider Orthopaedic Surgery | DX: Z98.1 Arthrodesis status (principal) | CPT/HCPCS: 99024 ==

== ENCOUNTER → 2024-03-11 12:59 | Outpatient (BNVA) | payer OTHER, SELFPAY | PROVIDERS: PCP Family Medicine; Visit Provider Orthopaedic Surgery | DX: Z98.1 Arthrodesis status (principal) | CPT/HCPCS: 72070; 99024 ==

== ENCOUNTER → 2024-04-20 08:02 | Outpatient (BNVA) | payer OTHER, SELFPAY | PROVIDERS: PCP Family Medicine; Visit Provider Orthopaedic Surgery | DX: M48.04 Spinal stenosis, thoracic region (principal); G99.2 Myelopathy in diseases classified elsewhere; Z98.1 Arthrodesis status | CPT/HCPCS: 72072; 99024 ==

== ENCOUNTER → 2024-06-08 08:37 | Outpatient (BNVA) | payer OTHER, SELFPAY | PROVIDERS: PCP Family Medicine; Visit Provider Surgery | DX: Z12.11 Encounter for screening for malignant neoplasm of colon (principal); K22.70 Barrett's esophagus without dysplasia | CPT/HCPCS: 99214 ==

== ENCOUNTER 2024-06-24 06:53 | Day surgery (SDC) | payer OTHER, SELFPAY ==
[2024-06-24 07:02] VITALS: BP 113/73; PULSE 59; RESP 18; TEMP 36.2; O2SAT 96; BMI 37.3
--- NOTE | 2024-06-24 07:03 | W.PM.OPSUD ---
Surgery/Procedure H&P Update DATE OF PROCEDURE: June 24, 2024 DATE H&P PERFORMED: 06/08/24 H&P UPDATE INFORMATION: I have reviewed H&P completed within last 30 days, I have examined patient prior to procedure, No changes to prior documentation and H&P is in [facility] [place] EMR on date indicated PLANNED PROCEDURE: Operation Date: 06/24/24 08:20 Proposed Procedures p EGD [id number] G0105 Z12.11 K22.70(Not Applicable) - Ata Lomax MD s Colonoscopy(Not Applicable) - Ata Lomax MD
[2024-06-24] MEDS: sodium chloride 0.9% 500 ML 15 ML IV (07:18)
--- NOTE | 2024-06-24 07:38 | ANES.PREANE2 ---
Pre-Anesthetic Assessment Height/Weight: Height 5 ft 10 in Weight 260 lb Temp Pulse Resp BP Pulse Ox O2 Del Method 97.1 F L 59 L 18 113/73 96 Room Air 06/24/24 07:02 06/24/24 07:02 06/24/24 07:02 06/24/24 07:02 06/24/24 07:02 06/24/24 07:02 Preop Diagnosis: Screening colonoscopy Operation Date: 06/24/24 08:20 Proposed Procedures p EGD [id number] G0105 Z12.11 K22.70(Not Applicable) - Ata Lomax MD s Colonoscopy(Not Applicable) - Ata Lomax MD Was Beta Ciera taken within 24 hours: N/A Was Clonidine taken within 24 hours: N/A Last intake: Intake Last Liquid Date 06/23/24 Last Liquid Time 20:00 Last Solid Date 06/22/24 Last Solid Time 18:00 Social No alcohol and No tobacco Exam alert, oriented x 3, clear to auscultation bilaterally and regular rate & rhythm Airway Submandibular: within normal limits Cervical ROM: within normal limits Mallampati: Class II Dentition: full Anesthetic Plan ASA status: 3 Anesthesia: MAC Other: Patient states that he is prone to apnea when he has anesthesia Completed bowel prep History of hypertension on triamterene?HCTZ and atenolol HAILEE, wears CPAP nightly Chronic back pain, recently stopped using opioids after being on them for 10+ years Prior labs reviewed and acceptable for procedure Plan for MAC anesthesia Medications/Allergies Home Medications ?Medication ?Instructions ?Recorded ?Confirmed ?Last Taken ?Type ammonium lactate 12 % lotion 1 applic topical BID #400 grams 03/10/23 06/21/24 06/10/23 Rx diclofenac sodium 1 % topical gel 2 g topical BID PRN Muscle Pain 03/10/23 06/21/24 06/21/24 History atenolol 100 mg tablet 50 mg PO BEDTIME 06/17/23 06/21/24 06/21/24 History AFO to the right #1 ea 09/15/23 06/08/24 Unknown Rx Orthopedic shoe package #1 ea 09/15/23 06/08/24 Unknown Rx tamsulosin 0.4 mg capsule 0.4 mg PO DAILY 01/09/24 06/21/24 06/21/24 History triamterene 75 1 tab PO DAILY 01/09/24 06/21/24 06/21/24 History mg-hydrochlorothiazide 50 mg tablet modify AFO to left to non #1 ea 03/03/24 06/08/24 Unknown Rx articulating bisacodyl 5 mg tablet,delayed 5 mg PO DAILY #4 tabs 06/08/24 06/21/24 Unknown Rx release (Dulcolax (bisacodyl)) magnesium citrate 300 ml PO DAILY PRN constipation 06/08/24 06/21/24 Unknown Rx #296 mL hydrocodone 10 mg-acetaminophen 1 tab PO Q6H PRN Pain 06/21/24 06/21/24 06/21/24 History 325 mg tablet Allergies Allergy/AdvReac Type Severity Reaction Status Date / Time Mdkhxvo-MSE-QeN Reductase Allergy Unknown Verified 06/21/24 08:12 Inhibitor Current Medications Generic Name Dose Route Start Last Admin Trade Name Freq PRN Reason Stop Dose Admin Sodium Chloride 500 mls @ 15 mls/hr 06/24/24 06:57 06/24/24 07:18 Sodium Chloride 0.9% IV 06/25/24 06:56 15 mls/hr .Q24H PRN Administration COLONOSCOPY FLUIDS PFSH Anesthesia Medical History No pertinent past medical history Social History Smoking and tobacco/nicotine status: never used tobacco/nicotine Quit status (tobacco/nicotine): has quit using Substance/Drug Use: never Data Anesthesia Cardiac Studies: No Data to Display
[2024-06-24 09:15] VITALS: BP 84/48; PULSE 52; RESP 18; TEMP 36.2; O2SAT 94
--- NOTE | 2024-06-24 09:28 | ANE.PACU2 ---
Inpatient post-anesthesia follow up: Airway intact: Yes Vital signs: Temperature 97.2 F Pulse Rate 57 Respiratory Rate 18 Blood Pressure 109/67 Pulse Oximetry 95 Oxygen Delivery Me thod Room Air Oxygen Flow Rate Fraction of Inspir ed Oxygen Hydration adequate: Yes Nausea and vomiting: No Pain level: 1 Mental status: Baseline
[2024-06-24 09:44] VITALS: BP 109/67; PULSE 57; RESP 18; O2SAT 95
== END 2024-06-24 09:59 | disposition home or self-care (01) ==
PROVIDERS: PCP Family Medicine; Visit Provider Surgery
PROC: 0DJ08ZZ Inspection of Upper Intestinal Tract, Via Natural or Artificial Opening Endoscopic (ICD-10-PCS; principal; 2024-06-24 08:20)
PROC: 0DJD8ZZ Inspection of Lower Intestinal Tract, Via Natural or Artificial Opening Endoscopic (ICD-10-PCS; CPT 45378; 2024-06-24 08:20)
DX: Z12.11 Encounter for screening for malignant neoplasm of colon (principal); K56.2 Volvulus; K57.30 Diverticulosis of large intestine without perforation or abscess without bleeding; G47.33 Obstructive sleep apnea (adult) (pediatric); K29.50 Unspecified chronic gastritis without bleeding; K62.1 Rectal polyp; D12.2 Benign neoplasm of ascending colon; K22.70 Barrett's esophagus without dysplasia; K44.9 Diaphragmatic hernia without obstruction or gangrene; I10 Essential (primary) hypertension; Z79.899 Other long term (current) drug therapy; Z88.8 Allergy status to other drugs, medicaments and biological substances
CPT/HCPCS: 43235; 45380; 88305; J2371; J2704; J3490; J7040

== ENCOUNTER → 2024-07-07 10:37 | Outpatient (BNVA) | payer OTHER, SELFPAY | PROVIDERS: PCP Family Medicine; Visit Provider Surgery | DX: Z09 Encounter for follow-up examination after completed treatment for conditions other than malignant neoplasm (principal) | CPT/HCPCS: 99213 ==

== ENCOUNTER → 2024-07-20 12:47 | Outpatient (BNVA) | payer OTHER, SELFPAY | PROVIDERS: PCP Family Medicine; Visit Provider Orthopaedic Surgery | DX: Z98.1 Arthrodesis status (principal) | CPT/HCPCS: 72070; 99213 ==

== ENCOUNTER → 2024-09-14 12:37 | Outpatient (BNVA) | payer OTHER, SELFPAY | PROVIDERS: PCP Family Medicine; Visit Provider Internal Medicine Cardiovascular Disease | DX: R07.9 Chest pain, unspecified (principal) | CPT/HCPCS: 93005 ==

== ENCOUNTER 2024-09-30 11:42 | Outpatient (CLI) | payer OTHER, SELFPAY ==
[2024-09-30 11:49] VITALS: BMI 36.7
--- NOTE | 2024-09-30 11:50 | ECG_ITS ---
Bfly Test Date: 2024-09-30 Pat Name: Leon Tracey Department: Room: Gender: Male Hay Buckler: : 1955 Requested By: Philip Deleon Order Number: [id number] Brian MD: Ankit Pop M.D. Interpretive Statements Dobutamine stress echocardiogram Dobutamine infusion data: The patient had dobutamine infusion per protocol. Baseline heart rate was 75 beats per minute. Baseline blood pressure was 148/56 millimeters of mercury. Maximal predicted heart rate was 153 beats per minute. Maximum heart rate achieved was 131 which was 85 % of the maximum predicted heart rate. Maximum blood pressure was 165/102 millimeters of mercury. Total infusion time was 10 minutes and 6 seconds. The reason for ending the test was completion of the protocol. The patient complained of shortness of breath during the stress test, which then resolved at the end of the test. ELECTROCARDIOGRAM: BASELINE: Showed sinus rhythm, normal axis, no significant ST-T changes at the baseline noted. [] EXERCISE: At the peak exercise level, [] Non specific ST T wave changes seen RECOVERY: During the recovery period, heart rate dropped appropriately. Non-diagnostic ST depressions seen. PVCs seen CONCLUSION: 1. Heart rate response was appropriate 2. Blood pressure response was appropriate 3. Symptoms not suggestive of ischemia. 4. EKG portion of stress test is non-diagnostic as maximum heart rate captured on EKG is 129 which is 2 beats below target heart rate which reduces the sensitivity of test 5. Echo portion of the stress test will be reported separately. Electronically Signed On 10-11-2024 12:18:43 CDT by Ankit Pop M.D. [email or web address]
--- NOTE | 2024-09-30 11:50 | USCV_ITS ---
Dobutamine Stress Echo Leon Tracey Age: 69 Gender: M : 1955 Exam Date: 09/30/2024 12:10 Ordering Phys: Philip Deleon MD ([email or web address]) Technologist: Exam Location: [facility] [place] Indication: Chest pain Rhythm: Sinus Patient History: Former Smoker Cardiac Medications: Atenolol 50mg Daily Medications in past 24 hours: Contrast: Total Dose (mL): Stress Results Protocol: Pharmacologic Peak Dose (???g/kg/min): 50 Duration (min:sec): 10.06 Atropine:(mg) Target HR: 130 Double Product: 75531 Resting HR: 64 Resting BP: 155 / 88 Peak HR: 131 Peak BP: 181 / 102 Max Predicted HR: 153 86 % Max Predicted HR Stress Summary: The hemodynamic response to stress was normal. BP Response: Normal Reason for Termination: The patients target heart rate was achieved Cardiac Symptoms: Mild Short of Breath ECG Analysis Resting EKG: Normal sinus rhythm with no significant ST-T wave changes. Stress EKG: Sinus tachycardia with nonspecific ST-T wave changes. Arrhythmia: PVCs seen in recovery period. MEASUREMENTS (Male/Female) Normal Values FINDINGS At baseline LV systolic function is normal with EF 55-60%. No regional wall motion abnormalities are seen. With dobutamine infusion, heart rate increased to 131 bpm which was 85% of maximum predicted heart rate. At maximum heart rate, no evidence of ischemia seen with hyperdynamic LV and no regional wall motion abnormalities. CONCLUSIONS Normal baseline LV systolic function with EF of 55-60% Patient reached target heart rate of 131 bpm. At maximal heart rate, no evidence of ischemia. Stress test is negative for ischemia EKG portion of stress test not showing evidence of ischemia although maximal heart rate at which EKG was recorded was 2 beats less than the target heart rate. This reduces sensitivity of the test. Overall negative stress test for ischemia as imaging portion not showing evidence of ischemia. Ankit Pop MD (Electronically Signed) Final Date: 11 October 2024 11:59 S
[2024-09-30] MEDS: DOBUTtamine 200 MG in sodium chloride 0.9% 34 ML 17.42 MG IV (12:49)
[2024-09-30 13:16] VITALS: BP 156/56; PULSE 98
== END 2024-09-30 11:43 | disposition home or self-care (01) ==
LOC: CDL 11:44
PROVIDERS: PCP Family Medicine; Visit Provider Internal Medicine Cardiovascular Disease
DX: R07.9 Chest pain, unspecified (principal)
CPT/HCPCS: 36415; 93017; 93350; 96374; J1250; J7050

== ENCOUNTER → 2024-11-23 10:00 | Outpatient (BNVA) | payer OTHER, SELFPAY | PROVIDERS: PCP Family Medicine; Visit Provider Nurse Practitioner Family | DX: F42.4 Excoriation (skin-picking) disorder (principal); D22.5 Melanocytic nevi of trunk; L81.4 Other melanin hyperpigmentation; L57.8 Other skin changes due to chronic exposure to nonionizing radiation; L57.0 Actinic keratosis | CPT/HCPCS: 17000; 99203 ==

== ENCOUNTER 2024-12-07 06:51 | Emergency (ER) | payer OTHER, SELFPAY ==
--- OUTSIDE RECORDS SUMMARY | 2003-04-06 19:00 | XMS_ITS | Continuity of Care Document ---
Author Name [facility] Address [address] [place] [address] Organization [facility] Care Team Providers Care Digital Marketing Intern Name Role Phone [facility] Unavailable Unavailable Problems Problem Status Onset Date Problem Type Date of Resolution Comme nts Source History of - artificial joint (context-dependent category) Active Condition Complete rotator cuff tear or rupture of right shoulder, not specified as traumatic Diagnosis Primary osteoarthritis, right shoulder Diagnosis Arthrodesis status Diagnosis Essential (primary) hypertension Diagnosis Hyperlipidemia, unspecified Diagnosis Liver disease, unspecified Diagnosis Post-traumatic stress disorder, unspecified Diagnosis Hypothyroidism, unspecified Diagnosis Sleep apnea, unspecified Diagnosis Other cervical disc degeneration, unspecified cervical region Diagnosis Major depressive disorder, single episode, unspecified Diagnosis Gastro-esophageal reflux disease without esophagitis Diagnosis Encounters Location Location Details Encounter Type Encounter Number Reason For Visit Attending Provider ADM Date DC Date Status Source [facility] OUTPATIENT [id number] R SHOULDER PAIN F/U Jemal [facility] [place] OUTPATIENT [id number] 2WK POP/ RT ZULLY/ DOS /5/JULIA [facility] [place] OUTPATIENT [id number] 2WK POP/ RT ZULLY/ DOS 12/10 Jeaml [facility] Procedures Procedure Code Date Perfomer Comments Source colonoscopies [facility] L4-L5 fusion 2017 [facility] left ankle scope [facility] left rotator cuff repair [facility] ankle [facility] right achilles [facility] right foot [facility] right rotator cuff and bicep [facility]
--- OUTSIDE RECORDS SUMMARY | 2023-12-26 06:06 | XMS_ITS ---
Author Name [facility] Organization [facility] [place] Address [address] [place] [address] Care Team Providers Care Jewelsmith Name Role Phone TERESE VUONG Primary Care Provider Unavailabl e Insurance Providers: All historical and current Section Date Range: From patient's date of to the date document was created. This section includes the names of all active insurance providers for the patient. Insurance Provider Type of Coverage Plan Name Start of Policy Coverage End of Policy Coverage Group Number Member ID Insurance Provider's Telephone Number Policy Schultz's Name Patient's Relationship to Policy Schultz MEDICARE (WNR) MEDICARE (M) PART B Nov 05, 2004 PART B [id number] [phone] SASHALakia Sanchez PATIENT MEDICARE (WNR) MEDICARE (M) PART B Nov 05, 2004 PART B [id number] [phone] SASHALakia Sanchez PATIENT MEDICARE (WNR) MEDICARE (M) PART B Nov 05, 2004 PART B [id number] [phone] Lakia BAEZ AGA PATIENT MEDICARE (WNR) MEDICARE (M) PART B Nov 05, 2004 PART B [id number] [phone] SASHALakia PATIENT MEDICARE (WNR) MEDICARE () PART B Nov 05, 2004 PART B [id number] [phone] SASHALakia PATIENT MEDICARE (WNR) MEDICARE () PART B Nov 05, 2004 PART B [id number] [phone] SASHALakia AMES PATIENT MEDICARE (WNR) MEDICARE () PART B Nov 05, 2004 PART B [id number] SASHALakia PATIENT MEDICARE (WNR) MEDICARE () PART B Nov 05, 2004 PART B [id number] SASHALakia PATIENT MEDICARE (WNR) MEDICARE () PART B Nov 05, 2004 PART B [id number] [phone] SASHALakia PATIENT MEDICARE (WNR) MEDICARE () PART B Nov 05, 2004 PART B [id number] [phone] SASHALakia PATIENT MEDICARE (WNR) MEDICARE () PART A Oct 06, 2003 PART A [id number] [phone] SASHALakia PATIENT MEDICARE (WNR) MEDICARE () PART A Oct 06, 2003 PART A [id number] [phone] Lakia BAEZ PATIENT MEDICARE (WNR) MEDICARE () PART A Oct 06, 2003 PART A [id number] [phone] SASHALakia AGA PATIENT MEDICARE (WNR) MEDICARE () PART A Oct 06, 2003 PART A [id number] SASHALakia AMES PATIENT MEDICARE (WNR) MEDICARE () PART A Oct 06, 2003 PART A [id number] SASHALakia AGA PATIENT MEDICARE (WNR) MEDICARE () PART A Oct 06, 2003 PART A [id number] SASHALakia AGA PATIENT MEDICARE (WNR) MEDICARE () PART A Oct 06, 2003 PART A [id number] Lakia BAEZ PATIENT MEDICARE (WNR) MEDICARE (M) PART A Oct 06, 2003 PART A [id number] Lakia BAEZ PATIENT MEDICARE (WNR) MEDICARE (M) PART A Oct 06, 2003 PART A [id number] Lakia BAEZ PATIENT MEDICARE (WNR) MEDICARE (M) PART A Oct 06, 2003 PART A [id number] [phone] Lakia BAEZ PATIENT Selected Encounter This section includes the information on record at [place] for the Encounter. Date/Time Encounter Type Encounter Description Reason Provider Source Dec 26, 2023 11:06 AM Outpatient Encounter ADMIN PAT ACTIVTIES ([facility]) [facility] Encounter Template Text not used by [place] Plan of Treatment: Future Appointments (+ 6 months) and Future Tests (+/- 45 days) The Plan of Treatment section includes future care activities for the patient from all [place] treatmentfacilities. This section includes future appointments and future orders which are active, pending or scheduled. Future Appointments This section includes appointments that were scheduled to occur 6 months from the date of the Encounter, up to a maximum of 20 appointments. The data comes from all [place] treatment facilities. Appointment Date/Time Appointment Type Appointme nt Facility Name Dec 29, 2023 10:00 AM AM[facility]ULATORY - [facility]INE [facility] Jan 06, 2024 11:00 AM AM[facility] - MEDIC[facility] Jan 14, 2024 08:00 AM AM[facility] - [facility] Jan 29, 2024 10:30 AM AMBULATORY - MEDICINE [facility] Feb 02, 2024 11:00 AM AM[facility] - [facility]IC[facility] Mar 15, 2024 11:00 AM AM[facility]ATORY - [facility] Apr 15, 2024 01:30 PM AMBULATORY - [facility]IC[facility] Jun 08, 2024 08:40 AM [facility]AT[facility] - [facility] Encounter Notes: All associated encounter notes This section contains the clinical notes associated to the Encounter. 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 does not require personal care services for a minimum of 6 continuous months based on an inability to perform an ADL and/or a need for supervision, protection or instruction Denial date: 12/26/2023 Notification letter was mailed on: 12/29/2023 [facility] staff provided the following document(s): - Program of General Caregiver Support Services - [place] Form 10-305 Your Rights to Seek Further Review of [facility] Decisions [facility] staff provided information on the following resources and supports: - Other Community Resources: none /[place]/ [facility] [facility], IMPORT COORDINATOR House Mother Signed: 12/26/2023 11:08 Receipt Acknowledged By: 12/29/2023 13:53 /camron/ [facility]
[2024-12-07] VITALS (12 sets, daily range): BP systolic 116–140; BP diastolic 65–83; PULSE 77; RESP 15; TEMP 37.4; O2SAT 94–96
--- OUTSIDE RECORDS SUMMARY | 2024-12-07 06:57 | XMS_ITS | Continuity of Care Document ---
Author Name [facility] Organization [facility] Care Team Providers Care Corporate Account Executive Name Role Phone [facility] Unavailable Unavailable Problems Combined list of problems from Department of Defense and Veterans Affairs facilities. It does not include entries that were removed or entered in error. Problem Status Onset Date Problem Type Date of Resolution Comments Source Colonic Polyps Active 12/22/19 10 Condition Dec 28, 2009 Entered By: EDGARDO VELAZQUEZ Comment: 12/21/09 Colonoscopy: adenomasSep 2009 Entered By: EDGARDO VELAZQUEZ Comment: follow up colonoscopy in 5 years, 12/2014 [facility] Diverticulosis, Colonic Active 12/22/19 10 Condition [facility] A positive blood type Active Condition [facility] Adiposity (SNOMED CT 384935251) Active Condition [facility] Aneurysm of aortic root Active Condition [facility] Anxiety State Active Condition [facility] Back pain Active Condition Jan 20 Entered By: TERESE VUONG Comment: Lumbar surgeryJan 20, 2023 Entered By: TERESE VUONG Comment: pain management [facility] Orozco's Esophagus (SCT 170494574) Active Condition August 18, 2023 Entered By: TERESE VUONG Comment: 06/2023 egd barett's = repeat in 1 year to do at [facility] V[facility]vy 2023 Entered By: TERESE VUONG Comment: hiatal hernia smallMa2023 Entered By: TERESE VUONG Comment: egd due 06/2024 [facility] Benign essential hypertension (SNOMED CT 6333657) Active Condition [facility] Bilateral foot joint pain Active Condition Feb 25, 2023 Entered By: TERESE VUONG Comment: xray ordered, podiatry requestedFeb 25, 2023 Entered By: TERESE VUONG Comment: Diagnosis metatarsalgia bilateral foot painFeb 28, 2023 Entered By: TERESE VUONG Comment: old deformity from healed fracrures, heel spur [facility] Bilateral foot pain; Active Condition Aug 02, 2003 Entered By: TESS LANDA Comment: Hx of club feet; surgery 1999; foot pain; [facility] Bilateral shoulder joint pain Active Condition August 18, 2023 Entered By: TERESE VUONG Comment: hx rotator cuff repair both [facility] Carotid artery disease Active Condition Sep 12, 2023 Entered By: MAURICIO CARRIZALES Comment: Carotid Doppler studies performed on 11/27/2021 normal [facility] Chest Pain (SCT 83043831) Active Condition August 13, 2022 Entered By: TERESE VUONG Comment: In ED 07/2022, negative cardiac work-up. [facility] Chronic Low Back Pain Active Condition Aug 02, 2003 Entered By: TESS LANDA Comment: Rhichmond pain [facility] Chronic post-traumatic stress disorder following combat Active Condition [facility] COPD - Chronic Obstructive Pulmonary Disease (SCT 99552378) Active Condition August 18, 2023 Entered By: TERESE VUONG Comment: ephysema by ct scanMay 2023 Entered By: TERESE VUONG Comment: ct diagnostic 09/2023 [facility] Degeneration of cervical intervertebral disc (SNOMED CT 50542496) Active Condition . [facility] Degeneration of Lumbar Intervertebral Disc (SCT 39503875) Active Condition August 31, 2024 Entered By: TERESE VUONG Comment: 2017 sx rods [facility] Degenerative Joint Disease * (ICD-9-CM 715.90) Active Condition [facility] Depression * (ICD-9-CM 300.4/311.) Active Condition [facility] Depressive disorder Active Condition [facility] Difficulty passing urine Active Condition Jul 05, 2020 Entered By: TERESE VUONG Comment: start tamsulosin [facility] Dizziness (SCT 752592618) Active Condition Feb 26, 2022 Entered By: TERESE VUONG Comment: Ultrasound bilateral carotid ultrasound 11/27/2021 less than 50% bilaterallyNov 2021 Entered By: TERESE VUONG Comment: CT head plain 11/2021, mild small vessel changesNov 2021 Entered By: TERESE VUONG Comment: CTA 11/2021 NO thoracic aortic aneurysm, noncalcified 5 mm nodule right upper lobe, follow-up CT scan in 12 months to 11/2022.August 13, 2022 Entered By: TERESE VUONG Comment: Patient said dizzinessOct 2022 Entered By: TERESE VUONG Comment: us carotids 12/2022 = compared to 11/2021 = no change bilateral ICA <50% [facility] Exposure to potentially hazardous substance Active Condition [facility] Family History of Ischemic Heart Disease Active Condition [facility] Food bolus gets stuck at times needs EGD Active Condition [facility] GI Reflux (GERD) Active Condition [facility] Headache (SNOMED CT 32240110) Active Condition [facility] Hepatitis * (ICD-9-CM 573.3) Active Condition Jun 25 5 Entered By: BAO DE GUZMAN Comment: hepititis b, c negitive, u/s liver neg 2006 Entered By: TESS LANDA Comment: fatty liver by CT scan; [facility] History of fusion of thoracic spine (SNOMED CT [id number]) Active Condition [facility] History of total arthroplasty of right shoulder Active Condition August 18, 2023 Entered By: TERESE VUONG Comment: columai [facility] HLD - Hyperlipidemia (SNOMED CT 22978476) Active Condition September 05, 2023 Entered By: TERESE VUONG Comment: declines statin [facility] Hyperlipidemia * (ICD-9-CM 272.4) Active Condition [facility] Hypertension Active Condition [facility] Hypothyroid (SNOMED CT 69668932) Active Condition [facility] Hypothyroidism Active Condition [facility] Migraine * (ICD-9-CM 346.90) Active Condition [facility] Mixed Sleep Apnea Active Condition [facility] no thoracic aneurysm Active Condition [facility] Other specified disorders of skin (ICD-9-CM 709.8) Active Condition [facility] Pain in joint involving ankle and foot Active Condition Dec 10, 2006 Entered By: TESS LANDA Comment: bilateral; [facility] Poss. panic anxiety; Active Condition [facility] Reflex Sympathetic Dystrophy of the Lower Limb (ICD-9-CM 337.22) Active Condition [facility] Screening for Malignant Neoplasms of colon (ICD-9-CM V76.51) Active Condition [facility] Sleep apnea syndrome (SNOMED CT 25485427) Active Condition [facility] Sleep Apnea Syndromes * (ICD-9-CM 780.53) Active Condition Jan 31 Entered By: TESS LANDA Comment: C pap; [facility] Solitary nodule of lung Active Condition Feb 26, 2022 Entered By: TERESE VUONG Comment: CT 11/2021 5 mm right upper lobe, recommends follow-up CT scan due 11/2022.Jul 09, 2022 Entered By: TERESE VUONG Comment: Has been removed from the LDCT program because quit smoking now 25 years.Jul 15, 2022 Entered By: TERESE VUONG Comment: fu due 07/2023 No changeMay 2024 Entered By: TERESE VUONG Comment: incidental ldct [facility] Steatosis of liver (SNOMED CT 292125380) Active Condition [facility] SWCC = boaters = brain and spine / joint issues Active Condition [facility] Tinnitus * (ICD-9-CM 388.30) Active Condition [facility] Traumatic Arthritis Active Condition Jan 02, 2007 Entered By: NICKY MOHAN Comment: Bilateral [facility] Anxiety Disorder NOS Inactive Condition 03/13/2015 [facility] Chronic Low Back Pain (ICD-9-CM 724.2) Inactive Condition 03/13/2015 [facility] Depression * (ICD-9-CM 311./300.4) Inactive Condition 03/13/2015 [facility] DJD * (ICD-9-CM 715.90) Inactive Condition 03/13/2015 [facility] Elevated Liver Enzymes (ICD-9-CM 794.8) Inactive Condition 03/13/2015 [facility] Encounters for other Specified Administrative Purpose (ICD-9-CM V68.89) Inactive Condition 2013 [facility] Insomnia Related To...[Indicate The Anderson I Or Anderson II Disorder] Inactive Condition 03/13/2015 [facility] Mood Disorder Due To...[Indicate The General Medical Condition] Inactive Condition 03/13/2015 Jun 21, 2010 Entered By: ISELA CHASE Comment: chronic musculoskeletal pain [facility] Neck pain (SNOMED CT 26857433) Inactive Condition 03/13/2015 [facility] Other General Medical Examination for Administrative Purposes Inactive Condition 03/13/2015 [facility] Posttraumatic stress disorder (SNOMED CT 26103054) Inactive Condition 03/13/2015 [facility] R/O Sleep Apnea Inactive Condition 01/31/2010 Apr 18, 2004 Entered By: TESS LANDA Comment: Refer to Adolfo Vee; [facility] Shoulder Pain Inactive Condition 03/13/2015 [facility] Tobacco Use Disorder Inactive Condition 01/06/2004 Jan 06, 2004 Entered By: TESS LANDA Comment: quit; [facility] Urgent desire to urinate (SNOMED CT 23531074) Inactive Condition 03/13/2015 [facility] Diagnosis: ICD-10-CM I71.22 Aneurysm of the aortic arch, without rupture Active Diagnosis [facility] Diagnosis: ICD-10-CM I10 Essential (primary) hypertension Active Diagnosis [facility] Diagnosis: ICD-10-CM M43.24 Fusion of spine, thoracic region Active Diagnosis [facility] Diagnosis: ICD-10-CM M25.519 Pain in unspecified shoulder Active Diagnosis [facility] Diagnosis: ICD-10-CM F33.9 Major depressive disorder, recurrent, unspecified Active Diagnosis [facility] Diagnosis: ICD-10-CM Z73.6 Limitation of activities due to disability Active Diagnosis [facility] Diagnosis: ICD-10-CM Z71.89 Other specified counseling Active Diagnosis [facility] Diagnosis: ICD-10-CM E66.9 Obesity, unspecified Active Diagnosis [facility] Diagnosis: ICD-10-CM Z13.9 Encounter for screening, unspecified Active Diagnosis [facility] Diagnosis: ICD-10-CM Z13.5 Encounter for screening for eye and ear disorders Active Diagnosis [facility] Diagnosis: ICD-10-CM Z00.01 Encounter for general adult medical exam w abnormal findings Active Diagnosis [facility] Medications Combined list of outpatient medications from Department of Defense and Veterans Affairs facilities.Medications provided include 1) outpatient medications from the last 15 months, and 2) patient-reported medications. Medication Details Route Status Patient Instructions Prescription Expires Prescription Number Last Dispense Date Ordering Provider Order Date Order Qty Source AMMONIUM LACTATE 12% LOTION APPLY LIGHTLY TO AFFECTED AREA(S) TWICE A DAY FOR DRY SKIN. EXTERNAL USE ONLY.DO NOT APPLY TO RED,ITCH Y, OR SORE SKIN TOPICA L 03/10/2024 [id number] 4 Doretha JENNINGS 2022 480 [facility] ASPIRIN 325MG BUFFERED TAB TAKE ONE TABLET BY MOUTH EVERY DAY BY MOUTH ACTIVE DORIE VELAZQUEZ 2009 [facility] ATENOLOL 100MG TAB TAKE ONE-HALF TABLET BY MOUTH ONCE A DAY FOR HIGH BLOOD PRESSURE DO NOT TAKE ANTACIDS OR CALCIUM SUPPLEME NTS WITHIN 2 HRS OF TAKING THIS MEDICATI ON. ORAL ACTIVE 07/27/2025 [id number] 5 OLU VUONG 2024 45 [facility] ATENOLOL 100MG TAB TAKE ONE-HALF TABLET BY MOUTH ONCE A DAY (DO NOT TAKE ANTACIDS OR CALCIUM SUPPLEME NTS WITHIN 2 HRS OF TAKING THIS MEDICATI ON) ORAL 12/31/2023 [id number] 4 OLU VUONG 2022 45 [facility] BISACODYL 5MG TAB,EC TAKE FOUR TABLETS BY MOUTH AT 1400 THE DAY BEFORE THE COLONOSC OPY PROCEDUR E ORAL 07/08/2024 [id number] Alex WILKERSON A 2024 4 [facility] BUPROPION HCL 300MG 24HR TAB,SA TAKE ONE TABLET BY MOUTH ONCE A DAY FOR DEPRESSI ON SWALLOW WHOLE - DO NOT CRUSH OR CHEW. ORAL 08/18/2024 [id number] OLU VUONG E R 2023 90 [facility] CARBAMIDE PEROXIDE 6.5%/GLYCER IN SOLN,OTIC INSTILL 2 DROPS IN BOTH EARS EVERY 4 WEEKS NEEDED FOR EAR WAX BLOCKAGE AURICU LAR (OTIC) 08/18/2024 [id number] 4 OLU VUONG R 2023 15 [facility] CYCLOBENZAP RINE HCL 10MG TAB TAKE ONE TABLET BY MOUTH THREE TIMES A DAY NEEDED MAY CAUSE DROWSINE SS. DO NOT DRINK ALCOHOL WHILE TAKING THIS MEDICATI ON. ORAL ACTIVE 07/21/2025 [id number] 5 RHONDATRO Y H 2024 90 [facility] DICLOFENAC NA 1% GEL,TOP APPLY DIRECTED TO AFFECTED AREA(S) ONCE A DAY NEEDED FOR PAIN. NO MORE THAN 16 GM/DAY TO ANY LOWER EXTREMIT Y JOINT. NO MORE THAN 8 GM/DAY TO ANY UPPER EXTREMIT Y JOINT. MAX 32GM/DAY OVER ALL JOINTS.( MEASURE DOSE WITH RULER INSIDE BOX). TOPICA L ACTIVE 11/03/2025 [id number] RODGER SEPULVEDA 2024 100 [facility] DICLOFENAC NA 1% GEL,TOP APPLY 4 GM TO AFFECTED AREA(S) EVERY 6 HOURS NEEDED NO MORE THAN 16 GM/DAY TO ANY LOWER EXTREMIT Y JOINT. NO MORE THAN 8 GM/DAY TO ANY UPPER EXTREMIT Y JOINT. MAX 32GM/DAY OVER ALL JOINTS.( MEASURE DOSE WITH RULER INSIDE BOX) SULY Keyes DISCONT INUED 08/13/2025 [id number] 5 Kelly RIVERA 2024 500 [facility] DICLOFENAC NA 1% GEL,TOP APPLY 4 GM TO AFFECTED AREA(S) EVERY 6 HOURS NEEDED FOR 30 DAYS . NO MORE THAN 16 GM/DAY TO ANY LOWER EXTREMIT Y JOINT. NO MORE THAN 8 GM/DAY TO ANY UPPER EXTREMIT Y JOINT. MAX 32GM/DAY OVER ALL JOINTS.( MEASURE DOSE WITH RULER INSIDE BOX) TOPICA L DISCONT INUED 05/15/2024 [id number] 5 Kelly RIVERA 2024 500 [facility] DICLOFENAC NA 1% GEL,TOP APPLY 4 GM TO AFFECTED AREA(S) EVERY 6 HOURS NEEDED DO NOT EXCEED MORE THAN 16 GRAMS DAILY TO ANY LOWER EXTREMIT Y JOINT. NOT MORE THAN 8 GRAMS DAILY TO ANY UPPER EXTREMIT Y JOINT. MAX 32GM/DAY OVER ALL JOINTS. (MEASURE DOSE WITH RULER ATTACHED INSIDE BOX) TOPICA L DISCONT INUED 12/06/2023 [id number] Kelly RIVERA 2023 500 [facility] DICLOFENAC NA 1% GEL,TOP APPLY 4 GM TO AFFECTED AREA(S) EVERY 6 HOURS NEEDED FOR PAIN DO NOT EXCEED MORE THAN 16 GRAMS DAILY TO ANY LOWER EXTREMIT Y JOINT. NOT MORE THAN 8 GRAMS DAILY TO ANY UPPER EXTREMIT Y JOINT. MAX 32GM/DAY OVER ALL JOINTS. (MEASURE DOSE WITH RULER ATTACHED INSIDE BOX) TOPICA L DISCONT INUED 11/07/2023 [id number] 4 Kelly RIVERA 2023 500 [facility] DICLOFENAC NA 1% GEL,TOP APPLY 4 GM TO AFFECTED AREA(S) EVERY 6 HOURS NEEDED DO NOT EXCEED MORE THAN 16 GRAMS DAILY TO ANY LOWER EXTREMIT Y JOINT. NOT MORE THAN 8 GRAMS DAILY TO ANY UPPER EXTREMIT Y JOINT. MAX 32GM/DAY OVER ALL JOINTS. (MEASURE DOSE WITH RULER ATTACHED INSIDE BOX) TOPICA L DISCONT INUED 10/11/2023 [id number] Kelly RIVERA 2023 500 [facility] DICLOFENAC NA 1% GEL,TOP APPLY 4 GM TO AFFECTED AREA(S) EVERY 6 HOURS NEEDED FOR 30 DAYS FOR PAIN. NO MORE THAN 16 GM/DAY TO ANY LOWER EXTREMIT Y JOINT. NO MORE THAN 8 GM/DAY TO ANY UPPER EXTREMIT Y JOINT. MAX 32GM/DAY OVER ALL JOINTS.( MEASURE DOSE WITH RULER INSIDE BOX) TOPICA L 06/12/2024 [id number] 5 Kelly RIVERA 2024 500 [facility] DICLOFENAC NA 1% GEL,TOP APPLY 4 GM TO AFFECTED AREA(S) EVERY 6 HOURS NEEDED DO NOT EXCEED MORE THAN 16 GRAMS DAILY TO ANY LOWER EXTREMIT Y JOINT. NOT MORE THAN 8 GRAMS DAILY TO ANY UPPER EXTREMIT Y JOINT. MAX 32GM/DAY OVER ALL JOINTS. (MEASURE DOSE WITH RULER ATTACHED INSIDE BOX) TOPICA L 01/03/2024 [id number] Kelly RIVERA 2023 500 [facility] Diclofenac Sodium 0.01mg/mg, Gel/Jelly, Topical APPLY 4 GM TO AFFECTED AREA(S) EVERY 6 HOURS NEEDEDDO NOT EXCEED MORE THAN 16 GRAMS DAILY TO ANY LOWER EXTREMIT Y JOINT. NOT MORETHAN 8 GRAMS DAILY TO ANY UPPER EXTREMIT Y JOINT. MAX 32GM/DAY OVER AL 10/11/2023 [id number] DALE RIVERA 2023 500 [facility] FLUTICASONE 100MCG/SALM ETEROL 50MCG INHL,ORAL,D ISKUS,60 INHALE 1 INHALATI ON ORAL INHALATI ON TWICE A DAY FOR COPD (OPEN DISKUS; CLICK ONLY ONCE; MAY INHALE TWICE TO COMPLETE DOSE; CLOSE WHEN FINISHED ) RINSE MOUTH AND SPIT AFTER EACH USE. RESPIR ATORY (INHAL ATION) 08/18/2024 [id number] 5 OLU VUONG 2023 3 [facility] HYDROCHLORO THIAZIDE 50MG/TRIAMT ERENE 75MG TAB TAKE ONE-HALF TABLET BY MOUTH EVERY MORNING FOR HIGH BLOOD PRESSURE ORAL 08/18/2024 [id number] OLU VUONG 2023 45 [facility] HYDROCODONE 10MG/ACETAM INOPHEN 325MG TAB TAKE 1-2 TABLETS BY MOUTH EVERY 4 TO 6 HOURS NEEDED FOR PAIN (MAX 6 TABLETS PER DAY; HOLD WITHIN 4 HOURS OF PLANNED SLEEP) THIS QUANTITY MUST LAST 28 DAYS OR MORE CAUTION: DO NOT EXCEED 4000MG PER DAY ACETAMIN OPHEN (APAP) FROM ALL MEDS. ORAL DISCONT INUED 07/17/2024 [id number] 5 Kelly RIVERA 2024 168 [facility] HYDROCODONE 10MG/ACETAM INOPHEN 325MG TAB TAKE 1-2 TABLETS BY MOUTH EVERY 4 TO 6 HOURS NEEDED FOR PAIN (MAX 6 TABLETS PER DAY; HOLD WITHIN 4 HOURS OF PLANNED SLEEP) THIS QUANTITY MUST LAST 28 DAYS OR MORE CAUTION: DO NOT EXCEED 4000MG PER DAY ACETAMIN OPHEN (APAP) FROM ALL MEDS. ORAL DISCONT INUED 05/15/2024 [id number] Kelly RIVERA 2024 168 [facility] HYDROCODONE 10MG/ACETAM INOPHEN 325MG TAB TAKE 1-2 TABLETS BY MOUTH EVERY 4 TO 6 HOURS NEEDED FOR PAIN (MAX 8 TABLETS PER DAY; HOLD WITHIN 4 HOURS OF PLANNED SLEEP) THIS QUANTITY MUST LAST 28 DAYS OR MORE CAUTION: DO NOT EXCEED 4000MG PER DAY ACETAMIN OPHEN (APAP) FROM ALL MEDS. ORAL DISCONT INUED 04/17/2024 [id number] Kelly RIVERA 2023 224 [facility] HYDROCODONE 10MG/ACETAM INOPHEN 325MG TAB TAKE 1-2 TABLETS BY MOUTH EVERY 4 TO 6 HOURS NEEDED FOR PAIN (MAX 8 TAB/DAY; HOLD WITHIN 4 HOURS OF PLANNED SLEEP) MUST LAST 28 DAYS OR MORE CAUTION: DO NOT EXCEED 4000MG PER DAY ACETAMIN OPHEN (APAP) FROM ALL MEDS. ORAL DISCONT INUED 03/20/2024 [id number] Kelly RIVERA 2023 224 [facility] HYDROCODONE 10MG/ACETAM INOPHEN 325MG TAB TAKE 1-2 TABLETS BY MOUTH EVERY 4 TO 6 HOURS NEEDED FOR PAIN (MAX 6 TABLETS PER DAY; HOLD WITHIN 4 HOURS OF PLANNED SLEEP) THIS QUANTITY MUST LAST 28 DAYS OR MORE CAUTION: DO NOT EXCEED 4000MG PER DAY ACETAMIN OPHEN (APAP) FROM ALL MEDS. ORAL 08/14/2024 [id number] Kelly RIVERA 2024 168 [facility] HYDROCODONE 10MG/ACETAM INOPHEN 325MG TAB TAKE 1-2 TABLETS BY MOUTH EVERY 4 TO 6 HOURS NEEDED FOR PAIN (MAX 6 TAB/DAY; HOLD WITHIN 4 HOURS OF PLANNED SLEEP) MUST LAST 28 DAYS OR MORE CAUTION: DO NOT EXCEED 4000MG PER DAY ACETAMIN OPHEN (APAP) FROM ALL MEDS. ORAL 06/12/2024 [id number] Kelly RIVERA 2024 168 [facility] HYDROMORPHO NE HCL 4MG TAB TAKE ONE TO TWO TABLETS BY MOUTH EVERY 4 TO 6 HOURS NEEDED FOR PAIN (MAX 4.5 TABS/DAY , HOLD WITHIN 4 HOURS OF PLANNED SLEEP) THIS QUANTITY MUST LAST 28 DAYS OR MORE ORAL DISCONT INUED 11/10/2024 [id number] 5 Kelly RIVERA 2024 126 [facility] HYDROMORPHO NE HCL 4MG TAB TAKE ONE TO TWO TABLETS BY MOUTH EVERY 4 TO 6 HOURS NEEDED FOR PAIN (MAX 4.5 TABLETS PER DAY; HOLD WITHIN 4 HOURS OF PLANNED SLEEP) THIS QUANTITY MUST LAST 28 DAYS OR MORE ORAL DISCONT INUED 09/11/2024 [id number] Kelly RIVERA 2024 126 [facility] HYDROMORPHO NE HCL 4MG TAB TAKE ONE TO TWO TABLETS BY MOUTH EVERY 4 TO 6 HOURS NEEDED FOR PAIN (MAX 5 TABLETS PER DAY; HOLD WITHIN 4 HOURS OF PLANNED SLEEP) THIS QUANTITY MUST LAST 28 DAYS OR MORE ORAL DISCONT INUED 01/24/2024 [id number] Kelly RIVERA 2023 140 [facility] HYDROMORPHO NE HCL 4MG TAB TAKE ONE TABLET BY MOUTH EVERY 6 HOURS NEEDED FOR PAIN (NOT TO EXCEED 4 TABLETS PER DAY) THIS QUANTITY MUST LAST 30 DAYS OR MORE ORAL 12/02/2024 [id number] RODGER SEPULVEDA 2024 105 [facility] HYDROMORPHO NE HCL 4MG TAB TAKE ONE TO TWO TABLETS BY MOUTH EVERY 4 TO 6 HOURS NEEDED FOR PAIN (MAX 4.5 TABS/DAY , HOLD WITHIN 4 HOURS OF PLANNED SLEEP) THIS QUANTITY MUST LAST 28 DAYS OR MORE ORAL 10/02/2024 [id number] Kelly RIVERA 2024 126 [facility] HYDROMORPHO NE HCL 4MG TAB TAKE ONE TO TWO TABLETS BY MOUTH EVERY 4 TO 6 HOURS NEEDED FOR PAIN (MAX 5/DAY; HOLD WITHIN 4 HOURS OF PLANNED SLEEP) MUST LAST 28 DAYS OR MORE ORAL 02/21/2024 [id number] 4 Kelly RIVERA 2023 140 [facility] HYDROMORPHO NE HCL 4MG TAB TAKE ONE TABLET BY MOUTH EVERY 4 HOURS NEEDED ORAL ACTIVE MISTY KIM 2018 [facility] LEVOTHYROXI NE NA 137MCG TAB TAKE ONE TABLET BY MOUTH EVERY MORNING BEFORE A MEAL FOR HYPOTHYR OIDISM TAKE 30 MINUTES BEFORE FOOD. TAKE SEPARATE LY FROM ALL OTHER MEDICATI ONS. ORAL 11/10/2024 [id number] 5 OLU VUONG 2023 90 [facility] MAGNESIUM CITRATE LIQUID,ORAL TAKE 1 BOTTLE BY MOUTH ONCE A DAY NEEDED FOR CONSTIPA TION. TAKE ONE 10 OZ BOTTLE AT 12:00PM AND ONE AT 8PM. ORAL 07/08/2024 [id number] 5 Alex WILKERSON 2024 3 [facility] OXYCODONE HCL 10MG TAB TAKE ONE TABLET BY MOUTH EVERY 4 TO 6 HOURS NEEDED FOR PAIN (MAX 3/DAY; HOLD WITHIN 4 HOURS OF PLANNED SLEEP) MUST LAST 28 DAYS OR MORE MAY CAUSE CONSTIPA TION ORAL DISCONT INUED 12/06/2023 [id number] Kelly RIVERA 2023 84 [facility] OXYCODONE HCL 10MG TAB TAKE ONE TABLET BY MOUTH EVERY 4 TO 6 HOURS NEEDED FOR PAIN (MAX 3/DAY; HOLD WITHIN 4 HOURS OF PLANNED SLEEP) MUST LAST 28 DAYS OR MORE CAU CAUSE CONSTIPA TION ORAL DISCONT INUED 11/07/2023 [id number] Kelly RIVERA 2023 84 [facility] OXYCODONE HCL 10MG TAB TAKE ONE TABLET BY MOUTH EVERY 4 TO 6 HOURS NEEDED FOR PAIN (MAX 3/DAY; HOLD WITHIN 4 HOURS OF PLANNED SLEEP) MUST LAST 28 DAYS OR MORE MAY CAUSE CONSTIPA TION ORAL DISCONT INUED 10/11/2023 [id number] 4 Kelly RIVERA 2023 84 [facility] [facility] [facility] OXYCODONE HCL 10MG TAB TAKE ONE TABLET BY MOUTH EVERY 4 TO 6 HOURS NEEDED FOR PAIN (MAX 3 TABS/DAY , HOLD WITHIN 4 HOURS OF PLANNED SLEEP) THIS QUANTITY MUST LAST 28 DAYS OR MORE MAY CAUSE CONSTIPA TION ORAL 01/03/2024 [id number] 4 Kelly RIVERA 2023 84 [facility] Oxycodone Hydrochlori de (Roxicodone Eq.) Tablet 10 mg Oral TAKE ONE TABLET BY MOUTH EVERY 4 TO 6 HOURS NEEDED FOR PAIN(MAX 3/DAY; HOLD WITHIN 4 HOURS OF PLANNED SLEEP) MUST LAST 28 DAYS ORMORE * MAY CAUSE CONSTIPA TION 10/11/2023 [id number] 4 DALE RIVERA 2023 84 [facility] PANTOPRAZOL E NA 40MG TAB,EC TAKE ONE TABLET BY MOUTH TWICE A DAY TAKE 30 MINUTES BEFORE MEAL(S) ORAL ACTIVE 07/08/2025 [id number] 5 Alex WILKERSON A 2024 180 [facility] SUCRALFATE 500MG/5ML SUSP,ORAL TAKE 10 ML BY MOUTH TWICE A DAY FOR 6 WEEKS - TAKE ON AN EMPTY STOMACH ORAL 08/18/2024 [id number] Alex WILKERSOND A 2024 840 [place] [facility] TAMSULOSIN HCL 0.4MG CAP TAKE ONE CAPSULE BY MOUTH EVERY EVENING APPROXIM ATELY 30 MINUTES AFTER THE SAME MEAL EACH DAY (FOR PROSTATE ) ORAL DISCONT INUED (EDIT) 07/24/2024 [id number] 4 OLU VUONG R 2023 90 [facility] TAMSULOSIN HCL 0.4MG CAP TAKE TWO CAPSULES BY MOUTH EVERY EVENING FOR BENIGN PROSTATI C HYPERPLA GRIFFIN APPROXIM ATELY 30 MINUTES AFTER THE SAME MEAL EACH DAY (FOR PROSTATE ) ORAL 11/10/2024 [id number] 5 OLU VUONG 2023 180 [facility] Allergies, Adverse Reactions, Alerts Combined list of allergies from Department of Defense and Veterans Affairs facilities. It does not include entries that were removed or entered in error. Substance Category Reaction Severity Reaction type Status Date Reported Comments Source CRESTOR Propensity to adverse reactions to drug (finding) Muscle weakness active 5 [facility] Rosuvastatin Drug allergy (disorder) Muscle Weakness active 5 [facility] Simvastatin Drug allergy (disorder) Muscle Weakness active 3 [facility] SIMVASTATIN Propensity to adverse reactions to drug (finding) Muscle weakness active 3 [facility] Immunizations Combined list of available immunizations from the Department of Defense and [facility] Affairs facilities. Immunization Series Date Given Administered By Site Reaction Lot Number CVX Code Drug Asphalt Coater Status Comments Source INFLUENZA, SEASONAL, INJECTABLE, PRESERVATIVE FREE 2016 140 complet ed Right Deltoid [facility] INFLUENZA, UNSPECIFIED FORMULATION 2015 88 complet ed [facility] INFLUENZA, SEASONAL, INJECTABLE, PRESERVATIVE FREE 2014 140 complet ed [facility] INFLUENZA, UNSPECIFIED FORMULATION 2013 88 complet ed [facility] TDAP 2013 115 complet ed Right Deltoid [facility] INFLUENZA, SEASONAL, INJECTABLE, PRESERVATIVE FREE 2012 140 complet ed [place] [facility] INFLUENZA, UNSPECIFIED FORMULATION 2011 88 complet ed [facility] INFLUENZA VACCINE (HISTORICAL) 2009 88 complet [facility] INFLUENZA, UNSPECIFIED FORMULATION 2009 88 complet ed [facility] Y[facility] (HISTORICAL) 2008 88 complet [facility] TD(ADULT) UNSPECIFIED FORMULATION 1 2008 139 complet ed HISTORICA L INFORMATI ON - FROM OTHER REGISTRY, [facility] FLU,3 YRS (HISTORICAL) 2007 88 complet [facility] PNEUMOCOCCAL POLYSACCHARID E PPV23 2007 33 complet ed patient voiced that received this before moving to [facility] FLU,3 YRS (HISTORICAL) 2006 88 complet [facility] FLU,3 YRS (HISTORICAL) 2005 88 complet [facility] PNEUMOCOCCAL, UNSPECIFIED FORMULATION 2005 109 complet [facility] PNEUMOVAX, 1ST VACCINE (PPSV-23) (HISTORICAL) 2005 33 complet [facility] FLU,3 YRS (HISTORICAL) 2004 88 complet [facility] FLU,3 YRS (HISTORICAL) 2003 88 [facility] TD(ADULT) UNSPECIFIED FORMULATION 1997 139 [facility] Results Combined list of recent chemistry, hematology and other laboratory results from Department of Defense and Veterans Affairs, ranging from 15 months to all on record, depending upon the facility. Order Name Results Value Reference Range Date Interpretation Specimen Comments Source DRUG SCREEN URINE-inh ouse (PB) METHADONE [PRESENCE] IN URINE Negative 08/31 Specimen Type: URINE No comment entered. Ordering Provider: TERESE VUONG Report Released Date/Time: August 31, 2024 01:39 PM Reporting Lab: [place] [facility] [address] [place] [address] Performing Lab: [place] [facility] [address] [place] [address] [facility] DRUG SCREEN URINE-inh ouse (PB) OPIATES [PRESENCE] IN URINE BY SCREEN METHOD Positive 08/31 Specimen Type: URINE No comment entered. Ordering Provider: TERESE VUONG Report Released Date/Time: August 31, 2024 01:39 PM Reporting Lab: [place] [facility] [address] [place] [address] Performing Lab: [place] [facility] [address] [place] [address] [facility] DRUG SCREEN URINE-inh ouse (PB) COCAINE [PRESENCE] IN URINE Negative 08/31 Specimen Type: URINE No comment entered. Ordering Provider: TERESE VUONG Report Released Date/Time: August 31, 2024 01:39 PM Reporting Lab: [place] [facility] [address] [place] [address] Performing Lab: [place] [facility] [address] [place] [address] [facility] DRUG SCREEN URINE-inh ouse (PB) TETRAHYDROC ANNABINOL [PRESENCE] IN URINE BY SCREEN METHOD Negative 08/31 Specimen Type: URINE No comment entered. Ordering Provider: TERESE VUONG Report Released Date/Time: August 31, 2024 01:39 PM Reporting Lab: [place] [facility] [address] [place] [address] Performing Lab: [place] [facility] [address] [place] [address] [facility] DRUG SCREEN URINE-inh ouse (PB) BENZODIAZEP DELMAR [PRESENCE] IN URINE BY SCREEN METHOD Negative 08/31 Specimen Type: URINE No comment entered. Ordering Provider: TERESE VUONG Report Released Date/Time: August 31, 2024 01:39 PM Reporting Lab: [place] [facility] [address] [place] [address] Performing Lab: [place] [facility] [address] [place] [address] [facility] DRUG SCREEN URINE-inh ouse (PB) AMPHETAMINE [PRESENCE] IN URINE BY SCREEN METHOD Negative 08/31 Specimen Type: URINE No comment entered. Ordering Provider: TERESE VUONG Report Released Date/Time: August 31, 2024 01:39 PM Reporting Lab: [place] [facility] [address] [place] [address] Performing Lab: [place] [facility] [address] [place] [address] [facility] DRUG SCREEN URINE-inh ouse (PB) CREATININE [MASS/VOLUM E] IN URINE 67.81 mg/dL 08/31 Specimen Type: URINE No comment entered. Ordering Provider: TERESE VUONG Report Released Date/Time: August 31, 2024 01:39 PM Reporting Lab: [place] [facility] [address] [place] [address] Performing Lab: [place] [facility] [address] [place] [address] [facility] DRUG SCREEN URINE-inh ouse (PB) OXYCODONE CUTOFF [MASS/VOLUM E] IN URINE FOR SCREEN METHOD Negative 08/31 Specimen Type: URINE No comment entered. Ordering Provider: TERESE VUONG Report Released Date/Time: August 31, 2024 01:39 PM Reporting Lab: [place] [facility] [address] [place] [address] Performing Lab: [place] [facility] [address] [place] [address] [facility] DRUG SCREEN URINE-inh ouse (PB) BUPRENORPHI NE [PRESENCE] IN URINE Negative ng/mL 08/31 Specimen Type: URINE No comment entered. Ordering Provider: TERESE VUONG Report Released Date/Time: August 31, 2024 01:39 PM Reporting Lab: [place] [facility] [address] [place] [address] Performing Lab: [place] [facility] [address] [place] [address] [facility] DRUG SCREEN URINE-inh ouse (PB) ETHANOL [MASS/VOLUM E] IN URINE <10mg/dL 0 - 20 08/31 L Specimen Type: URINE No comment entered. Ordering Provider: TERESE VUONG Report Released Date/Time: August 31, 2024 01:39 PM Reporting Lab: [place] [facility] [address] [place] [address] Performing Lab: [place] [facility] [address] [place] [address] [facility] DRUG SCREEN URINE-inh ouse (PB) FENTANYL [PRESENCE] IN URINE Negative ng/mL 08/31 Specimen Type: URINE No comment entered. Ordering Provider: TERESE VUONG Report Released Date/Time: August 31, 2024 01:39 PM Reporting Lab: [place] [facility] [address] [place] [address] Performing Lab: [place] [facility] [address] [place] [id number] [facility] B12 COBALAMIN (VITAMIN B12) [MASS/VOLUM E] IN SERUM OR PLASMA >2000pg/ mL 213 - 816 08/18 H Specimen Type: SERUM No comment entered. Ordering Provider: TERESE VUONG Report Released Date/Time: August 18, 2024 09:38 AM Reporting Lab: [place] [facility] [address] [place] [address] Performing Lab: [place] [facility] [address] [place] [address] [facility] FOLATE (PB) FOLATE [MASS/VOLUM E] IN SERUM OR PLASMA 8.1 ng/mL 7 - 20 08/18 Specimen Type: SERUM No comment entered. Ordering Provider: TERESE VUONG Report Released Date/Time: August 18, 2024 09:38 AM Reporting Lab: [place] [facility] [address] [place] [address] Performing Lab: [place] [facility] [address] [place] [address] [facility] HGA1C HEMOGLOBIN A1C/HEMOGLO BIN.TOTAL IN BLOOD 5.3 4.0 - 6.0 08/18 Specimen Type: BLOOD No comment entered. Ordering Provider: TERESE VUONG Report Released Date/Time: August 18, 2024 09:38 AM Reporting Lab: [place] [facility] [address] [place] [address] Performing Lab: [place] [facility] [address] [place] [address] [facility] VITAMIN D, 25-HYDROX Y 25-HYDROXYV ITAMIN D3 [MASS/VOLUM E] IN SERUM OR PLASMA 39.5 ng/mL 30 - 96 08/18 Specimen Type: SERUM No comment entered. Ordering Provider: TERESE VUONG Report Released Date/Time: August 18, 2024 09:38 AM Reporting Lab: [place] [facility] [address] [place] [address] Performing Lab: [place] [facility] [address] [place] [address] [facility] PROST. SPECIFIC AG.(PB-ST L) PROSTATE SPECIFIC AG [MASS/VOLUM E] IN SERUM OR PLASMA 2.34 ng/mL 0 - 4 08/18 Specimen Type: SERUM No comment entered. Ordering Provider: TERESE VUONG Report Released Date/Time: August 18, 2024 09:38 AM Reporting Lab: [place] [facility] [address] [place] [id number] Performing Lab: [place] [facility] [address] [place] [address] [facility] CHOLESTER OL PANEL (PB) CHOLESTEROL [MASS/VOLUM E] IN SERUM OR PLASMA 242 mg/dL 0 - 200 08/18 H Specimen Type: PLASMA Comment: LDL calculation invalid when Triglycerid e exceeds 250 mg/dl Ordering Provider: TERESE VUNOG Report Released Date/Time: August 18, 2024 09:38 AM Reporting Lab: [place] [facility] [address] [place] [address] Performing Lab: [place] [facility] [address] [place] [address] [facility] CHOLESTER OL PANEL (PB) TRIGLYCERID E [MASS/VOLUM E] IN SERUM OR PLASMA 253 mg/dL 0 - 150 08/18 H Specimen Type: PLASMA Comment: LDL calculation invalid when Triglycerid e exceeds 250 mg/dl Ordering Provider: TERESE VUONG Report Released Date/Time: August 18, 2024 09:38 AM Reporting Lab: [place] [facility] [address] [place] [address] Performing Lab: [place] [facility] [address] [place] [address] [facility] CHOLESTER OL PANEL (PB) CHOLESTEROL IN LDL [MASS/VOLUM E] IN SERUM OR PLASMA BY CALCULATION commentm g/dL 08/18 Specimen Type: PLASMA Comment: LDL calculation invalid when Triglycerid e exceeds 250 mg/dl Ordering Provider: TERESE VUONG Report Released Date/Time: August 18, 2024 09:38 AM Reporting Lab: [place] [facility] [address] [place] [address] Performing Lab: [place] [facility] [address] [place] [address] [facility] CHOLESTER OL PANEL (PB) CHOLESTEROL IN HDL [MASS/VOLUM E] IN SERUM OR PLASMA 43.8 mg/dL 40 08/18 H Specimen Type: PLASMA Comment: LDL calculation invalid when Triglycerid e exceeds 250 mg/dl Ordering Provider: TERESE VUONG Report Released Date/Time: August 18, 2024 09:38 AM Reporting Lab: [place] [facility] [address] [place] [address] Performing Lab: [place] [facility] [address] [place] [address] [facility] CHOLESTER OL PANEL (PB) CHOLESTEROL IN HDL/CHOLEST NAVID.TOTAL [MASS RATIO] IN SERUM OR PLASMA 18.1 25 08/18 Specimen Type: PLASMA Comment: LDL calculation invalid when Triglycerid e exceeds 250 mg/dl Ordering Provider: TERESE VUONG Report Released Date/Time: August 18, 2024 09:38 AM Reporting Lab: [place] [facility] [address] [place] [address] Performing Lab: [place] [facility] [address] [place] [address] [facility] CHOLESTER OL PANEL (PB) CHOLESTEROL IN LDL [MASS/VOLUM E] IN SERUM OR PLASMA BY DIRECT ASSAY 173.3 mg/dL 0 - 99.9 08/18 H Specimen Type: PLASMA Comment: LDL calculation invalid when Triglycerid e exceeds 250 mg/dl Ordering Provider: TERESE VUONG Report Released Date/Time: August 18, 2024 09:38 AM Reporting Lab: [place] [facility] [address] [place] [address] Performing Lab: [place] [facility] [address] [place] [address] [facility] COMPREHEN SIVE METABOLIC PANEL CREATININE [MASS/VOLUM E] IN SERUM OR PLASMA 0.85 mg/dL 0.7 - 1.3 08/18 Specimen Type: PLASMA Comment: LDL calculation invalid when Triglycerid e exceeds 250 mg/dl Ordering Provider: TERESE VUONG Report Released Date/Time: August 18, 2024 09:38 AM Reporting Lab: [place] [facility] [address] [place] [address] Performing Lab: [place] [facility] [address] [place] [address] [facility] COMPREHEN SIVE METABOLIC PANEL UREA NITROGEN [MASS/VOLUM E] IN SERUM OR PLASMA 15 mg/dL 9 - 25 08/18 Specimen Type: PLASMA Comment: LDL calculation invalid when Triglycerid e exceeds 250 mg/dl Ordering Provider: TERESE VUONG Report Released Date/Time: August 18, 2024 09:38 AM Reporting Lab: [place] [facility] [address] [place] [address] Performing Lab: [place] [facility] [address] [place] [address] [facility] COMPREHEN SIVE METABOLIC PANEL GLUCOSE [MASS/VOLUM E] IN SERUM OR PLASMA 116 mg/dL 72 - 99 08/18 H Specimen Type: PLASMA Comment: LDL calculation invalid when Triglycerid e exceeds 250 mg/dl Ordering Provider: TERESE VUONG Report Released Date/Time: August 18, 2024 09:38 AM Reporting Lab: [place] [facility] [address] [place] [address] Performing Lab: [place] [facility] [address] [place] [address] [facility] COMPREHEN SIVE METABOLIC PANEL SODIUM [MOLES/VOLU ME] IN SERUM OR PLASMA 141 meq/L 136 - 145 08/18 Specimen Type: PLASMA Comment: LDL calculation invalid when Triglycerid e exceeds 250 mg/dl Ordering Provider: TERESE VUONG Report Released Date/Time: August 18, 2024 09:38 AM Reporting Lab: [place] [facility] [address] [place] [address] Performing Lab: [place] [facility] [address] [place] [address] [facility] COMPREHEN SIVE METABOLIC PANEL POTASSIUM [MOLES/VOLU ME] IN SERUM OR PLASMA 4.3 meq/L 3.5 - 5 08/18 Specimen Type: PLASMA Comment: LDL calculation invalid when Triglycerid e exceeds 250 mg/dl Ordering Provider: TERESE VUONG Report Released Date/Time: August 18, 2024 09:38 AM Reporting Lab: [place] [facility] [address] [place] [address] Performing Lab: [place] [facility] [address] [place] [address] [facility] COMPREHEN SIVE METABOLIC PANEL CHLORIDE [MOLES/VOLU ME] IN SERUM OR PLASMA 105 meq/L 98 - 107 08/18 Specimen Type: PLASMA Comment: LDL calculation invalid when Triglycerid e exceeds 250 mg/dl Ordering Provider: TERESE VUONG Report Released Date/Time: August 18, 2024 09:38 AM Reporting Lab: [place] [facility] [address] [place] [address] Performing Lab: [place] [facility] [address] [place] [address] [facility] COMPREHEN SIVE METABOLIC PANEL CARBON DIOXIDE, TOTAL [MOLES/VOLU ME] IN SERUM OR PLASMA 26 meq/L 22 - 31 08/18 Specimen Type: PLASMA Comment: LDL calculation invalid when Triglycerid e exceeds 250 mg/dl Ordering Provider: TERESE VUONG Report Released Date/Time: August 18, 2024 09:38 AM Reporting Lab: [place] [facility] [address] [place] [address] Performing Lab: [place] [facility] [address] [place] [address] [facility] COMPREHEN SIVE METABOLIC PANEL CALCIUM [MASS/VOLUM E] IN SERUM OR PLASMA 9.1 mg/dL 8.4 - 10.4 08/18 Specimen Type: PLASMA Comment: LDL calculation invalid when Triglycerid e exceeds 250 mg/dl Ordering Provider: TERESE VUONG Report Released Date/Time: August 18, 2024 09:38 AM Reporting Lab: [place] [facility] [address] [place] [address] Performing Lab: [place] [facility] [address] [place] [address] [facility] COMPREHEN SIVE METABOLIC PANEL PROTEIN [MASS/VOLUM E] IN SERUM OR PLASMA 7.3 g/dL 6 - 8.6 08/18 Specimen Type: PLASMA Comment: LDL calculation invalid when Triglycerid e exceeds 250 mg/dl Ordering Provider: TERESE VUONG Report Released Date/Time: August 18, 2024 09:38 AM Reporting Lab: [place] [facility] [address] [place] [address] Performing Lab: [place] [facility] [address] [place] [address] [facility] COMPREHEN SIVE METABOLIC PANEL ALBUMIN [MASS/VOLUM E] IN SERUM OR PLASMA 4.7 g/dL 3.4 - 5 08/18 Specimen Type: PLASMA Comment: LDL calculation invalid when Triglycerid e exceeds 250 mg/dl Ordering Provider: TERESE VUONG Report Released Date/Time: August 18, 2024 09:38 AM Reporting Lab: [place] [facility] [address] [place] [address] Performing Lab: [place] [facility] [address] [place] [address] [facility] COMPREHEN SIVE METABOLIC PANEL BILIRUBIN.T OTAL [MASS/VOLUM E] IN SERUM OR PLASMA 1.0 mg/dL 0.2 - 1.2 08/18 Specimen Type: PLASMA Comment: LDL calculation invalid when Triglycerid e exceeds 250 mg/dl Ordering Provider: TERESE VUONG Report Released Date/Time: August 18, 2024 09:38 AM Reporting Lab: [place] [facility] [address] [place] [address] Performing Lab: [place] [facility] [address] [place] [address] [facility] COMPREHEN SIVE METABOLIC PANEL ALKALINE PHOSPHATASE [ENZYMATIC ACTIVITY/VO LUME] IN SERUM OR PLASMA 73 U/L 40 - 150 08/18 Specimen Type: PLASMA Comment: LDL calculation invalid when Triglycerid e exceeds 250 mg/dl Ordering Provider: TERESE VUONG Report Released Date/Time: August 18, 2024 09:38 AM Reporting Lab: [place] [facility] [address] [place] [address] Performing Lab: [place] [facility] [address] [place] [address] [facility] COMPREHEN SIVE METABOLIC PANEL ASPARTATE AMINOTRANSF ERASE [ENZYMATIC ACTIVITY/VO LUME] IN SERUM OR PLASMA 31 U/L 5 - 34 08/18 Specimen Type: PLASMA Comment: LDL calculation invalid when Triglycerid e exceeds 250 mg/dl Ordering Provider: TERESE VUONG Report Released Date/Time: August 18, 2024 09:38 AM Reporting Lab: [place] [facility] [address] [place] [address] Performing Lab: [place] [facility] [address] [place] [address] [facility] COMPREHEN SIVE METABOLIC PANEL ALANINE AMINOTRANSF ERASE [ENZYMATIC ACTIVITY/VO LUME] IN SERUM OR PLASMA 34 U/L 8 - 40 08/18 Specimen Type: PLASMA Comment: LDL calculation invalid when Triglycerid e exceeds 250 mg/dl Ordering Provider: TERESE VUONG Report Released Date/Time: August 18, 2024 09:38 AM Reporting Lab: [place] [facility] [address] [place] [address] Performing Lab: [place] [facility] [address] [place] [address] [facility] COMPREHEN SIVE METABOLIC PANEL GLOMERULAR FILTRATION RATE/1.73 SQ M.PREDICTED [VOLUME RATE/AREA] IN SERUM, PLASMA OR BLOOD BY CREATININE- BASED FORMULA (CKD-EPI 2020) 95 08/18 Specimen Type: PLASMA Comment: LDL calculation invalid when Triglycerid e exceeds 250 mg/dl Ordering Provider: TERESE VUONG Report Released Date/Time: August 18, 2024 09:38 AM Reporting Lab: [place] [facility] [address] [place] [address] Performing Lab: [place] [facility] [address] [place] [address] [facility] TSH (MA-PB) THYROTROPIN [UNITS/VOLU ME] IN SERUM OR PLASMA 8.562 u[IU]/mL 0.47 - 5 08/18 H Specimen Type: SERUM No comment entered. Ordering Provider: TERESE VUONG Report Released Date/Time: August 18, 2024 09:38 AM Reporting Lab: [place] [facility] [address] [place] [id number] Performing Lab: [place] [facility] [address] [place] [address] [facility] TSH (MA-PB) THYROXINE (T4) FREE [MASS/VOLUM E] IN SERUM OR PLASMA 0.85 ng/dL 08/18 Specimen Type: SERUM No comment entered. Ordering Provider: TERESE VUONG Report Released Date/Time: August 18, 2024 09:38 AM Reporting Lab: [place] [facility] [address] [place] [address] Performing Lab: [place] [facility] [address] [place] [address] [facility] CBC LEUKOCYTES [#/VOLUME] IN BLOOD BY AUTOMATED COUNT 5.8 10*3/uL 3.6 - 11.2 08/18 Specimen Type: BLOOD No comment entered. Ordering Provider: TERESE VUONG Report Released Date/Time: August 18, 2024 09:38 AM Reporting Lab: [place] [facility] [address] [place] [address] Performing Lab: [place] [facility] [address] [place] [address] [facility] CBC ERYTHROCYTE S [#/VOLUME] IN BLOOD BY AUTOMATED COUNT 4.96 10*6/uL 4.10 - 5.70 08/18 Specimen Type: BLOOD No comment entered. Ordering Provider: TERESE VUONG Report Released Date/Time: August 18, 2024 09:38 AM Reporting Lab: [place] [facility] [address] [place] [address] Performing Lab: [place] [facility] [address] [place] [address] [facility] CBC HEMOGLOBIN [MASS/VOLUM E] IN BLOOD 15.5 g/dL 13.1 - 16.8 08/18 Specimen Type: BLOOD No comment entered. Ordering Provider: TERESE VUONG Report Released Date/Time: August 18, 2024 09:38 AM Reporting Lab: [place] [facility] [address] [place] [id number] Performing Lab: [place] [facility] [address] [place] [address] [facility] CBC HEMATOCRIT [VOLUME FRACTION] OF BLOOD 45.5 38.2 - 48.4 08/18 Specimen Type: BLOOD No comment entered. Ordering Provider: TERESE VUONG Report Released Date/Time: August 18, 2024 09:38 AM Reporting Lab: [place] [facility] [address] [place] [id number] Performing Lab: [place] [facility] [address] [place] [address] [facility] CBC MCV [ENTITIC VOLUME] BY AUTOMATED COUNT 91.7 fL 80.0 - 100.0 08/18 Specimen Type: BLOOD No comment entered. Ordering Provider: TERESE VUONG Report Released Date/Time: August 18, 2024 09:38 AM Reporting Lab: [place] [facility] [address] [place] [id number] Performing Lab: [place] [facility] [address] [place] [address] [facility] CBC MCH [ENTITIC MASS] BY AUTOMATED COUNT 31.3 pg 27.0 - 34.0 08/18 Specimen Type: BLOOD No comment entered. Ordering Provider: TERESE VUONG Report Released Date/Time: August 18, 2024 09:38 AM Reporting Lab: [place] [facility] [address] [place] [address] Performing Lab: [place] [facility] [address] [place] [address] [facility] CBC MCHC [MASS/VOLUM E] BY AUTOMATED COUNT 34.1 g/dL 33.0 - 36.0 08/18 Specimen Type: BLOOD No comment entered. Ordering Provider: TERESE VUONG Report Released Date/Time: August 18, 2024 09:38 AM Reporting Lab: [place] [facility] [address] [place] [address] Performing Lab: [place] [facility] [address] [place] [id number] [facility] CBC PLATELETS [#/VOLUME] IN BLOOD BY AUTOMATED COUNT 254 10*3/uL 150 - 400 08/18 Specimen Type: BLOOD No comment entered. Ordering Provider: TERESE VUONG Report Released Date/Time: August 18, 2024 09:38 AM Reporting Lab: [place] [facility] [address] [place] [address] Performing Lab: [place] [facility] [address] [place] [address] [facility] CBC PLATELET MEAN VOLUME [ENTITIC VOLUME] IN BLOOD BY AUTOMATED COUNT 10.2 fL 7.5 - 11.2 08/18 Specimen Type: BLOOD No comment entered. Ordering Provider: TERESE VUONG Report Released Date/Time: August 18, 2024 09:38 AM Reporting Lab: [place] [facility] [address] [place] [address] Performing Lab: [place] [facility] [address] [place] [address] [facility] CBC ERYTHROCYTE DISTRIBUTIO N WIDTH [RATIO] BY AUTOMATED COUNT 12.1 11.8 - 15.1 08/18 Specimen Type: BLOOD No comment entered. Ordering Provider: TERESE VUONG Report Released Date/Time: August 18, 2024 09:38 AM Reporting Lab: [place] [facility] [address] [place] [address] Performing Lab: [place] [facility] [address] [place] [address] [facility] CBC LYMPHOCYTES /100 LEUKOCYTES IN BLOOD BY AUTOMATED COUNT 27.1 08/18 Specimen Type: BLOOD No comment entered. Ordering Provider: TERESE VUONG Report Released Date/Time: August 18, 2024 09:38 AM Reporting Lab: [place] [facility] [address] [place] [address] Performing Lab: [place] [facility] [address] [place] [address] [facility] CBC MONOCYTES/1 00 LEUKOCYTES IN BLOOD BY AUTOMATED COUNT 11.5 08/18 Specimen Type: BLOOD No comment entered. Ordering Provider: TERESE VUONG Report Released Date/Time: August 18, 2024 09:38 AM Reporting Lab: [place] [facility] [address] [place] [address] Performing Lab: [place] [facility] [address] [place] [address] [facility] CBC NEUTROPHILS /100 LEUKOCYTES IN BLOOD BY AUTOMATED COUNT 55.1 08/18 Specimen Type: BLOOD No comment entered. Ordering Provider: TERESE VUONG Report Released Date/Time: August 18, 2024 09:38 AM Reporting Lab: [place] [facility] [address] [place] [address] Performing Lab: [place] [facility] [address] [place] [address] [facility] CBC EOSINOPHILS /100 LEUKOCYTES IN BLOOD BY AUTOMATED COUNT 4.9 08/18 Specimen Type: BLOOD No comment entered. Ordering Provider: TERESE VUONG Report Released Date/Time: August 18, 2024 09:38 AM Reporting Lab: [place] [facility] [address] [place] [address] Performing Lab: [place] [facility] [address] [place] [address] [facility] CBC BASOPHILS/1 00 LEUKOCYTES IN BLOOD BY AUTOMATED COUNT 0.7 08/18 Specimen Type: BLOOD No comment entered. Ordering Provider: TERESE VUONG Report Released Date/Time: August 18, 2024 09:38 AM Reporting Lab: [place] [facility] [address] [place] [address] Performing Lab: [place] [facility] [address] [place] [address] [place] [address] [facility] CBC LYMPHOCYTES [#/VOLUME] IN BLOOD BY AUTOMATED COUNT 1.56 10*3/uL 0.77 - 4.50 08/18 Specimen Type: BLOOD No comment entered. Ordering Provider: TERESE VUONG Report Released Date/Time: August 18, 2024 09:38 AM Reporting Lab: [place] [facility] [address] [place] [address] Performing Lab: [place] [facility] [address] [place] [address] [facility] CBC MONOCYTES [#/VOLUME] IN BLOOD BY AUTOMATED COUNT 0.66 10*3/uL 0.19 - 0.8 08/18 Specimen Type: BLOOD No comment entered. Ordering Provider: TERESE VUONG Report Released Date/Time: August 18, 2024 09:38 AM Reporting Lab: [place] [facility] [address] [place] [id number] Performing Lab: [place] [facility] [address] [place] [address] [facility] CBC NEUTROPHILS [#/VOLUME] IN BLOOD BY AUTOMATED COUNT 3.17 10*3/uL 2.10 - 8.00 08/18 Specimen Type: BLOOD No comment entered. Ordering Provider: TERESE VUONG Report Released Date/Time: August 18, 2024 09:38 AM Reporting Lab: [place] [facility] [address] [place] [address] Performing Lab: [place] [facility] [address] [place] [address] [facility] CBC EOSINOPHILS [#/VOLUME] IN BLOOD BY AUTOMATED COUNT 0.28 10*3/uL 0.00 - 0.60 08/18 Specimen Type: BLOOD No comment entered. Ordering Provider: TERESE VUONG Report Released Date/Time: August 18, 2024 09:38 AM Reporting Lab: [place] [facility] [address] [place] [address] Performing Lab: [place] [facility] [address] [place] [address] [facility] CBC BASOPHILS [#/VOLUME] IN BLOOD BY AUTOMATED COUNT 0.04 10*3/uL 0.00 - 0.20 08/18 Specimen Type: BLOOD No comment entered. Ordering Provider: TERESE VUONG Report Released Date/Time: August 18, 2024 09:38 AM Reporting Lab: [place] [facility] [address] [place] [address] Performing Lab: [place] [facility] [address] [place] [address] [facility] CBC IMMATURE GRANULOCYTE S/100 LEUKOCYTES IN BLOOD BY AUTOMATED COUNT 0.7 08/18 Specimen Type: BLOOD No comment entered. Ordering Provider: TERESE VUONG Report Released Date/Time: August 18, 2024 09:38 AM Reporting Lab: [place] [facility] [address] [place] [address] Performing Lab: [place] [facility] [address] [place] [address] [facility] CBC IMMATURE GRANULOCYTE S [#/VOLUME] IN BLOOD BY AUTOMATED COUNT 0.04 10*3/uL 0.00 - 0.05 08/18 Specimen Type: BLOOD No comment entered. Ordering Provider: TERESE VUONG Report Released Date/Time: August 18, 2024 09:38 AM Reporting Lab: [place] [facility] [address] [place] [address] Performing Lab: [place] [facility] [address] [place] [address] [place] [facility] Vital Signs Combined list of inpatient and outpatient Vital Signs from Department of Defense and Veterans Affairs, ranging from 12 months to all on record, depending upon the facility. Vital Sign Value Date Comments Source SYSTOLIC BLOOD PRESSURE 126 08/31/2024 12:42:23 [place] [facility] DIASTOLIC BLOOD PRESSURE 84 08/31/2024 12:42:23 [place] [facility] PULSE OXIMETRY 93 08/31/2024 12:42:23 [facility] WEIGHT 259 08/31/2024 12:42:23 [place] [facility] BMI 37 kg/m2 08/31/2024 12:42:23 [place] [facility] PAIN 7 08/31/2024 12:42:23 [place] [facility] TEMPERATURE 97.5 08/31/2024 12:42:23 [place] [facility] PULSE 70 08/31/2024 12:42:23 [place] [facility] RESPIRATION 22 08/31/2024 12:42:23 [place] [facility] SYSTOLIC BLOOD PRESSURE 130 01/29/2024 11:08:31 [place] [facility] DIASTOLIC BLOOD PRESSURE 76 01/29/2024 11:08:31 [facility] PULSE OXIMETRY 96 01/29/2024 11:08:31 [facility] [place] [facility] WEIGHT 255.7 01/29/2024 11:08:31 [facility] BMI 37 kg/m2 01/29/2024 11:08:31 [place] [facility] PAIN 6 01/29/2024 11:08:31 [facility] TEMPERATURE 97.8 01/29/2024 11:08:31 [place] [facility] PULSE 76 01/29/2024 11:08:31 [place] [facility] RESPIRATION 20 01/29/2024 11:08:31 [place] [facility] Encounters Combined list of: 1) Encounters from Department of Veterans Affairs facilities going backup to the last 18 months, not all VA inpatient encounters are included; 2) Encounters from the Department of Defense facilities going backup to 280 months. Location Location Details Encounter Type Encounter Number Reason For Visit Attending Provider ADM Date DC Date Status Disposition Source [facility] Outpatient Encounter [id number] 06/09 [facility] Outpatient Encounter [id number] 06/12 [facility] Outpatient Encounter [id number] 06/18 [facility] Outpatient Encounter [id number] 07/02 [facility] Outpatient Encounter [id number] 07/02 [facility] Outpatient Encounter [id number] 07/30 [facility] Outpatient Encounter [id number] 07/31 [facility] Outpatient Encounter [id number] 08/03 [facility] Outpatient Encounter [id number] 08/03 [facility] CB [facility] FAC[facility] FEE [id number] Diagnos is: ICD-10- CM Z00.01 Encount er for general adult medical exam w wallya JV Cline 08/17 [facility] OFFICE O/P EST HI 40 MIN [id number] Diagnos is: ICD-10- CM Z00.01 Encount er for general adult medical exam w abnorma l finding s TERESE VUONG R 08/17 [facility] FUNDUS PHOTOGRAPH Y W/I&R [id number] Diagnos is: ICD-10- CM Z13.5 Encount er for screeni ng for eye and ear disorde rs ANGELICA HELMS M 08/17 [facility] [place] [facility] Outpatient Encounter [id number] Diagnos is: ICD-10- CM Z13.9 Encount er for screeni ng, unspeci fied HIPOLITO WHITESIDE S 08/17 [place] [facility] Outpatient Encounter [id number] TERESE VUONG 08/23 [facility] HC PRO PHONE CALL 5-10 MIN [id number] Diagnos is: ICD-10- CM 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 JV Mcnamara 08/28 [facility] Outpatient Encounter [id number] 09/03 [facility] Outpatient Encounter [id number] 09/09 [facility] Outpatient Encounter [id number] 09/10 [facility] Outpatient Encounter [id number] 09/10 [facility] Outpatient Encounter [id number] 09/10 [facility] [place] [facility] Outpatient Encounter [id number] 09/11 [facility] Outpatient Encounter [id number] 09/11 [facility] Outpatient Encounter [id number] 09/14 [facility] Outpatient Encounter [id number] 1 09/17 [facility] Outpatient Encounter [id number] 09/18 [facility] [place] [facility] Out[facility] Encounter [id number] 09/18 [place] [facility] THERAPEUTI C EXERCISES [id number] Diagnos is: ICD-10- CM M25.519 Pain in unspeci fied GAVIN Elaine A 09/21 [facility] [place] [facility] HLTH BHV IVNTJ GRP EA ADDL [id number] Diagnos is: ICD-10- CM E66.9 Obesity , unspeci fied RO VEGA 10/01 [place] [facility] TELEHEALTH FACILITY FEE [id number] Diagnos is: ICD-10- CM E66.9 Obesity , unspeci fied RO VEGA 10/01 [facility] [place] [facility] WELLNESS ASSESSMENT BY NONPH [id number] Diagnos is: ICD-10- CM 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 JARED Bourgeois 10/07 [place] [facility] Outpatient Encounter [id number] 10/07 [facility] Outpatient Encounter [id number] 10/09 [facility] Outpatient Encounter [id number] 10/09 [facility] Outpatient Encounter [id number] 10/13 [facility] [place] [facility] WELLNESS ASSESSMENT BY NONPH [id number] JARED ALATORRE N 10/19 [place] [facility] Outpatient Encounter [id number] 10/21 [facility] [place] [facility] HL BHV ASSMT/REAS SESSMENT [id number] Diagnos is: ICD-10- CM 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 ing John AGRAWAL 10/22 [place] [facility] THERAPEUTI C EXERCISES [id number] Diagnos is: ICD-10- CM M25.519 Pain in unspeci fied shouldGAVIN Finney A 10/26 [facility] [place] [facility] Outpatient Encounter [id number] John AGRAWAL 10/29 [place] [facility] WELLNESS ASSESSMENT BY NONPH [id number] JARED ALATORRE N 11/02 [place] [facility] Outpatient Encounter [id number] 11/05 [facility] [place] [facility] Outpatient Encounter [id number] 11/05 [place] [facility] [place] [facility] GROUP THERAPEUTI C PROCEDURES [id number] Diagnos is: ICD-10- CM 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 John San 11/05 [place] [facility] Outpatient Encounter [id number] 11/05 [facility] [place] [facility] Outpatient Encounter [id number] 002 11/06 [place] [facility] [place] [facility] HC PRO PHONE CALL 21-30 MIN [id number] Diagnos is: ICD-10- CM Z73.6 Limitat ion of activit ies due to disabil ABUNDIO Wharton VILMA D 11/09 [place] [facility] [place] [facility] Outpatient Encounter [id number] 11/11 [place] [facility] [place] [facility] CASE MANAGEMENT [id number] Diagnos is: ICD-10- CM Z73.6 Limitat ion of activit ies due to disabil ABUNDIO Wharton D 11/11 [place] [facility] [place] [facility] Outpatient Encounter [id number] 11/11 [place] [facility] [place] [facility] Outpatient Encounter [id number] 11/12 [place] [facility] Outpatient Encounter [id number] 11/18 [facility] [place] [facility] Outpatient Encounter [id number] 11/20 [place] [facility] [place] [facility] Outpatient Encounter [id number] 11/24 [place] [facility] Outpatient Encounter [id number] TESSIE AMEZCUA 11/29 [facility] [place] [facility] CASE MANAGEMENT [id number] Diagnos is: ICD-10- CM F33.9 Major depress ema disorde r, recurre nt, unspeci fied SHAY SONI A E 12/01 [place] [facility] [place] [facility] Outpatient Encounter [id number] 12/02 [place] [facility] [place] [facility] WELLNESS ASSESSMENT BY NONPH [id number] JARED ALATORRE 12/03 [place] [facility] Outpatient Encounter [id number] 12/04 [facility] Outpatient Encounter [id number] 12/24 [facility] Outpatient Encounter [id number] REID DERAS 12/25 [facility] [place] [facility] Outpatient Encounter [id number] LINA BERGERON 12/25 [place] [facility] [place] [facility] Outpatient Encounter [id number] ABUNDIO JONES 12/25 [place] [facility] Outpatient Encounter [id number] 12/28 [facility] THERAPEUTI C EXERCISES [id number] Diagnos is: ICD-10- CM M25.519 Pain in unspeci fied GAVIN Elaine A [facility] [place] [facility] WELLNESS ASSESSMENT BY NONPH [id number] JARED ALATORRE N 01/05 [place] [facility] En[facility] [id number] 01/11 [facility] Outpatient Encounter [id number] 2 01/12 [facility] [place] [facility] Outpatient Encounter [id number] 01/12 [place] [facility] Outpatient Encounter [id number] 01/13 [facility] Outpatient Encounter [id number] 01/14 [facility] Outpatient Encounter [id number] 01/15 [facility] [place] [facility] Outpatient Encounter [id number] 01/21 [place] [facility] OFFICE O/P EST SF 10 MIN [id number] Diagnos is: ICD-10- CM M43.24 Fusion of spine, thoraci c region TERESE VUONG 01/28 [facility] [place] [facility] WELLNESS ASSESSMENT BY NONP [id number] JARED ALATORRE 02[facility]01 [facility] [facility] Encounter [id number] 02/09 [facility] Encounter [id number] 2 02/16 [facility] En[facility] [id number] [id number] 2 02/18 [facility] Encounter [id number] 02/20 [facility] Encounter [id number] 03/05 [facility] Encounter [id number] 03/10 [facility] Encounter [id number] [id number] 03/11 [facility] Encounter [id number] 03/12 [facility] [place] [facility] Outpatient Encounter [id number] 03/15 [place] [facility] Outpatient Encounter [id number] 03/19 [facility] Encounter [id number] 03/26 [facility] Encounter [id number] 04/15 [facility] Outpatient Encounter [id number] 04/20 [facility] [id number] [id number] 06/04 [facility]counter [id number] [id number] 06/08 [facility] En[facility] [id number] [id number] 1 06/08 [facility] Outpatient Encounter [id number] 06/10 [facility] Outpatient Encounter [id number] 06/17 [facility] Encounter [id number] [id number] 06/18 [facility] Outpatient Encounter [id number] 06/24 [facility] Encounter [id number] 07/07 [facility] Encounter [id number] 07/12 [facility] Encounter [id number] 07/12 [facility] Outpatient Encounter [id number] [id number] 07/13 [facility] Outpatient Encounter [id number] 07/15 [facility] Outpatient Encounter [id number] 07/20 [facility] En[facility] [id number] 07/26 [facility] Outpatient Encounter [id number] LENI DUMONT D 07/26 [facility] En[facility] [id number] 08/06 [facility] [id number] 08/12 [facility] Outpatient Encounter [id number] 08/12 [facility] Outpatient Encounter [id number] 08/13 [facility] Outpatient Encounter [id number] 08/23 [facility] Encounter [id number] 08/25 [facility] En[facility] [id number] 08/25 [facility] Outpatient Encounter [id number] 08/31 [facility] FEE [id number] Diagnos is: ICD-10- CM I10 Essenti al (primar y) hyperte TERESE Culver R 08/31 [facility] SYNCH AUDIO-VIDE O EST MOD 30 [id number] Diagnos is: ICD-10- CM I10 Essenti al (primar y) hyperte TERESE Culver R 08/31 [facility] Out[facility] Encounter [id number] 08/31 [facility] Out[facility] Encounter [id number] ARIANNE HANKS 09/01 [facility] Outpatient Encounter [id number] DORIE HAYS 09/01 [facility] Outpatient Encounter [id number] RO BLACKMAN 09/02 [facility] Outpatient Encounter [id number] 09/03 [facility] Outpatient Encounter [id number] 09/07 [facility] Outpatient Encounter [id number] 09/07 [facility] TTE W/DOPPLER COMPLETE [id number] Diagnos is: ICD-10- CM I71.22 Aneurys m of the aortic arch, without rupture [place] [facility] 09/09 [facility] Outpatient Encounter [id number] 09/14 [facility] En[facility] [id number] 09/15 [facility] Encounter [id number] 10/05 [facility] Encounter [id number] 10/13 [facility] Encounter [id number] 10/13 [facility] Encounter [id number] 10/14 [facility] Encounter [id number] 11/01 [facility] Encounter [id number] 11/02 [facility] Encounter [id number] 11/02 [facility] Encounter [id number] 11/03 [facility] Outpatient Encounter [id number] 11/09 [facility] Procedures Combined list of: 1) Procedures from Department of [facility] facilities going back up to thelast 18 months, not all VA non-surgical procedures are included; 2) All procedures from the Department of Defense facilities. Procedure Procedure Type Code Date Perfomer Comments Sourc e 5% DEXTROSE/NORMAL SALINE (500 ML = 1 UNIT) 02/18/2008 [facility] INFUSION, NORMAL SALINE SOLUTION , 1000 CC 02/14/2008 [facility] WEDGE OSTEOTOMY OF TARSALS AND METATARSALS 1999 [facility] RELEASE OF CLUBFOOT, NOT ELSEWHERE CLASSIFIED 1999 [facility] Social History Combined list of available smoking, tobacco, and other social history from Department of Defense and Veterans Affairs facilities. Social History Type Response Date Comment Sourc e Tobacco smoking status NHIS VA-TOBACCO USE FORMER CIGARETTES 08/31/2024 [facility] History of tobacco use VA-TOBACCO NEVER USED OTHER TYPE 08/31/2024 [facility] History of tobacco use VA-TOBACCO QUIT 15 YRS OR MORE 08/18/2023 [facility] History of tobacco use VA-TOBACCO FORMER USER 08/13/2022 [facility] History of tobacco use VA-TOBACCO FORMER USER 03/[facility]20[facility] History of tobacco use CURRENT NON-TOBACCO USER-HX OF USE 02/10/[facility] History of tobacco use VA-TOBACCO FORMER USER 01/04/2019 [facility] History of tobacco use CURRENT TOBACCO USER 04/01/2018 [facility] History of tobacco use QUIT TOBACCO >7 YEARS AGO 05/30/2010 [facility] History of tobacco use QUIT TOBACCO >7 YEARS AGO 06/07/2009 [facility] History of tobacco use QUIT TOBACCO >12 MO and <7 YRS AGO 06/13/2008 [facility] History of tobacco use QUIT TOBACCO >12 [place] and <7 YRS AGO 07/22/2007 [facility] History of tobacco use QUIT TOBACCO >12 [place] and <7 YRS AGO 06/26/2006 [facility] History of tobacco use NON-TOBACCO USER 06/21/2005 [facility] History of tobacco use RELAPSE TOBACCO COUNSELING #3 04/25/2005 [facility] History of tobacco use TOBACCO COUNSELING #3 DONE 04/17/2005 [facility] History of tobacco use TOBACCO COUNSELING 02/27/2005 [facility] History of tobacco use RELAPSE TOBACCO COUNSELING #3 02/26/2005 [facility] History of tobacco use TOBACCO COUNSELING 02/07/2005 [facility] History of tobacco use RELAPSE TOBACCO COUNSELING #3 10/11/2004 [facility] History of tobacco use RELAPSE TOBACCO COUNSELING #3 08/01/2004 [facility] History of tobacco use RELAPSE TOBACCO COUNSELING #3 06/25/2004 [facility] History of tobacco use RELAPSE TOBACCO COUNSELING #3 06/14/2004 [facility] History of tobacco use RELAPSE TOBACCO COUNSELING #2 04/12/2004 [facility] History of tobacco use RELAPSE TOBACCO COUNSELING #3 01/04/2004 [facility] History of tobacco use RELAPSE TOBACCO COUNSELING #2 12/05/2003 [facility] History of tobacco use CURRENT TOBACCO USER 08/02/2003 [facility] History of tobacco use CURRENT TOBACCO USER 08/28/2001 [facility] History of tobacco use CURRENT SMOKER 09/30/2000 [facility] This section is an empty social history section. DoD Plan of Care List of future care activities from Department of [facility] facilities. Additional future care activities may be listed in the Assessment and Plan section. Date/Time Care Activity Care Activity Detail Facili ty 12/01/2024 Laboratory - Blueprint Cutter ry Order CHOLESTEROL PANEL (PB) GREEN LI/HEP BLD/PLAS PLASMA SP [facility]
--- OUTSIDE RECORDS SUMMARY | 2024-12-07 06:59 | XMS_ITS | Clinical Summary ---
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 Active HYDROmorphone (Dilaudid) 4 mg tablet Take 4 mg by mouth every 3 hours as needed for Pain. Active tamsulosin (FLOMAX) 0.4 mg capsule Take 0.4 mg by mouth daily. Active triamterene-hyd roCHLOROthiazid e (MAXZIDE) 18.75-12.5 mg Tablet Take 1 Tablet by mouth daily. Active BUPROPION HCL ORAL Take by mouth. Activ e ATENOLOL ORAL Take by mouth. A ctive coenzyme Q10 100 mg Capsule Take 100 mg by mouth daily. Active CYANOCOBALAMIN, VITAMIN B-12, ORAL Take by mouth. Activ e pantoprazole (PROTONIX) 40 mg Tablet, Delayed Release (E.C.) Take 1 Tablet (40 mg) by mouth two times daily, before breakfast and bedtime. 60 Tablet 5 08/25/2024 12:23 PM CDT 5 02/22/20 25 Active sucralfate (CARAFATE) 1 gram tablet Take 1 Tablet (1 Gram) by mouth 4 times daily before meals and at bedtime. 120 Tablet 5 08/25/2024 12:23 PM CDT 5 02/22/20 25 Active maalox/lidocain e (GI COCKTAIL) 2:1 oral suspension compound Take 30 mL by mouth every 6 hours as needed for Pain. 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) 5 8:07 AM CDT Anesthesia Event [facility] [address] [place] [phone] Geovany Bloom, 5 8:00 AM CDT - 5 8:20 AM CDT Surgery [facility] [address] [place] [phone] Julio Blevins, ESOPHAGOGASTRODUODENOSCOPY 5 6:46 AM CDT - 5 9:03 AM CDT Hospital Encounter [facility] [address] [place] [phone] Julio Blevins, Discharge Disposition: Home or Self Care 5 External Device Data ST[facility] ABSTRACTION Provider, Abstract 5 External Device Data STL ABSTRACTION Provider, Abstract 5 Orders Only [address] [phone] Julio Blevins, 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 No 11/09/2024 Sex and Gender Information Value Date Recorded Sex Assigned at Not on file Legal Sex Male 11:51 AM CDT Gender Identity Not on file Sexual Orientation Not on file Last Filed Vital Signs Vital Sign Reading Time Taken Comments Blood Pressure 133/77 11/09/2024 8:49 AM CDT Pulse 63 11/09/2024 8:49 AM CDT Temperature 36.4 C (97.6 F) 11/09/2024 8:40 AM CDT Respiratory Rate 19 11/09/2024 8:49 AM CDT Oxygen Saturation 95% 11/09/2024 8:49 AM CDT Inhaled Oxygen Concentration - - Weight 113.4 kg (250 lb) 10/27/2024 9:26 AM CDT Height 177.8 cm (5' 10 ) 10/27/2024 9:26 AM CDT Body Mass Index 35.87 10/27/2024 9:26 AM CDT Plan of Treatment Upcoming Encounters Date Type Department Care Team (Latest Contact Info) Description 01/18/2025 8:00 AM CDT Hospital Encounter [facility] [address] [place] [phone] Julio Blevins, DO [address] [phone] 01/18/2025 8:00 AM CDT - 01/18/2025 8:20 AM CDT Surgery [facility] [address] [place] [phone] Julio Blevins, DO [address] [place] [phone] ESOPHAGOGASTRODUODENOSCOPY Scheduled Procedures Name Priority Associated Diagnoses Date/Ti me ESOPHAGOGASTRODUODENOSCOPY Barretts 01/18/2025 8:00 AM CDT Health Maintenance Due Date Last Done Comments Pre-Diabetes and Diabetes Screening 1955 DTAP/TDAP/TD VACCINES (1 - Tdap) 1976 COLORECTAL SCREENING 2002 Colorectal Cancer Screening 2002 FIT-DNA Q 3 years 2002 FIT/FOBT Q 1 year 2002 Flex Sig/CT Colonography Q 5 years 2002 PNEUMOCOCCAL VACCINE 50+ YEARS (1 of 1 - PCV) 05/07/19 08 ZOSTER VACCINE (1 of 2) 2007 Abdominal Aortic Aneurysm (AAA) Screening 2022 INFLUENZA VACCINE (#1) 2024 RSV VACCINE (60+ or ) (1 - 1-dose 75+ series) 2032 Goals Goal Patient Goal Type Associated Problems Recent Progress Patient-Stated? Author Autogenerat ed Goal Care Plan Autogenerated Problem No Meg Glez, VENEER DRIER Procedures Procedure Name Priority Date/Time Associated Diagnosis Comments UPPER ENDOSCOPY REPORT 8:31 AM CDT FL ESOPHAGOGASTRODUODENOSCOP Y TRANSORAL DIAGNOSTIC 11/09/2024 8:00 AM CDT barretts/RFA Case Notes EGD/RFA last done 3.[address] Chen blevins anxiety after back surgery coming out of sedation was combative letter mailed [employer] insurance from Last 3 Months Results * UPPER ENDOSCOPY REPORT (11/09/2024 8:31 AM CDT) Narrative Procedure Note Julio Blevins DO - 11/09/2024 8:31 AM CDT [facility] GI Patient Name: Leon Tracey Procedure Date: 11/09/2024 Date of : 1955 Admit Type: Outpatient Age: 69 Attending MD: Julio Blevins DO, Procedure: Upper GI endoscopy Indications: Suspected Mack's esophagus Providers: Julio Blevins DO Referring MD: Shaye Siddiqui MD Medicines: Propofol per Anesthesia Complications: No immediate complications. Procedure: After obtaining informed consent, the endoscope was passed under direct vision. Throughout the procedure, the patient's blood pressure, pulse, and oxygen saturations were monitored continuously. The Endoscope was introduced through the mouth, and advanced to the second part of duodenum. The upper GI endoscopy was accomplished without difficulty. The patient tolerated the procedure well. Estimated Blood Loss: Estimated blood loss was minimal. Findings: The esophagus and gastroesophageal junction were examined with white light and narrow band imaging (NBI) from a forward view and retroflexed position. There were esophageal mucosal changes classified as Mack's stage C0-M1 per [place] criteria. These changes involved the mucosa at the upper extent of the gastric folds (42 cm from the incisors) extending to the Z-line (43 cm from the incisors). One tongue of salmon-colored mucosa was present at 43 cm. The maximum longitudinal extent of these esophageal mucosal changes was 1 cm in length. Focal radiofrequency ablation of the abnormal mucosa in the esophagus was performed. Ablation sites were located at 43 cm from the incisors. With the endoscope in place, the position and extent of the abnormal mucosa and appropriate anatomic landmarks were noted. The abnormal mucosa was irrigated with N-acetylcysteine (Mucomyst) 1% mixed with water. The radiofrequency channel ablation catheter was introduced through the endoscope working channel. The endoscope with the ablation catheter was advanced to the areas of abnormal mucosa. The endoscope with the channel ablation catheter was positioned under direct visualization so that the catheter was placed in contact with the surface of the abnormal mucosa. Energy was applied twice at 12 J/cm2. Ablation was repeated in a likewise fashion to all remaining visible abnormal mucosa. The channel ablation catheter was then removed through the endoscope working channel, and the ablation catheter was cleaned. The endoscope was left in place. The ablation zone was cleaned of coagulative debris. The ablation catheter was reinserted into the endoscope working channel. A second round of ablation was then performed. Energy was applied twice at 12 J/cm2 to retreat the areas of abnormal mucosa that had been treated with the first series of ablation. The ablation catheter was removed through the endoscope working channel. The areas where abnormal mucosa had been ablated were examined. Areas of abnormal mucosa appeared completely ablated. The endoscope was then removed. A 3 cm hiatal hernia was present. The entire examined stomach was normal. The examined duodenum was normal. 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 Treated with radiofrequency ablation. - 3 cm hiatal hernia. - Normal stomach. - Normal examined duodenum. - No specimens collected. Recommendation: - Patient has a contact number available for emergencies. The signs and symptoms of potential delayed complications were discussed with the patient. Return to normal activities tomorrow. Written discharge instructions were provided to the patient. - Resume previous diet. - Continue present medications. Julio Blevins DO 11/09/2024 8:30:48 AM Number of Addenda: 0 Note Initiated On: 11/09/2024 8:00 AM Scope Withdrawal Time Scope In: Scope Out: [address] [place], [place] Julio Blevins DO GI PROCEDURE ORDERABLES Final Result from Last 3 Months Additional Health Concerns Active Problems Noted Date Diagnosed Date Autogenerated Problem 11/16/2024 Insurance [employer] * Guarantor: [facility] A (C) Account Type Relation to Patient Date of Phone Billing Address Corporate Other DEFAULT ADDRESS [address] [employer] Directives For more information, please contact: [phone] * Full Code (Latest Code Status on File) Date Activated Date Inactivated Comments 11/09/2024 7:29 AM 11/09/2024 11:11 AM * Full Code Date Activated Date Inactivated Comments 08/25/2024 7:59 AM 08/25/2024 11:55 AM
--- OUTSIDE RECORDS SUMMARY | 2024-12-07 06:59 | XMS_ITS | Patient Health Record ---
Author Organization [facility] Address [address], [place] [id number] Care Team Providers Care Clinical Support Nurse Name Role Phone [facility] Primary Care Provider Jackie Emil Hughes MD Unavailable [phone] [place], [place] Unavailable Unavailable Lucero Arriaga Unavailable [phone] Allergies Allergen (clinical drug ingredient) Drug/Non Drug Allergy documented on EMR Reaction Allergy Type Onset Date Status simvastatin simvastatin liver problems Drug Allergy Active rosuvastatin Crestor liver problems Drug Allergy Active Results Component Value Reference Range Notes Urine tox screen / MS if ind icated Reviewed date:02/19/2024 02:37:24 PM Interpretation:Consistent Performing Lab: Notes/Report: Consistent Reason For Referral Diagnosis 1 Vertebrogenic low ba ck pain (M54.51) Referring Provider First Name [place] Jan ff Referring Provider Last Name [place] Referred Organization [facility] Referred Provider Emil Gamboa Referred Address [address] [place], [id number], Referred Provider 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 Referral Priority Routine Medications Medication SIG (Take, Route, Frequency, Duration) Notes Start Date End Date Status levothyroxine 137 mcg (0.137 mg) 1 tab orally once a day Active magnesium citrate 125 mg 1 cap orally once a day Active fluorouracil topical 5% 1 grzegorz applied topically 2 times a day Active hydrochlorothiazide-tr iamterene 50 mg-75 mg 1 tab orally once a day Active Co-Q10 100 mg orally as directed Active mupirocin topical 2% 1 grzegorz applied topically 3 times a day Active Narcan 4 mg/0.1 mL as directed intranasally once 07/08/2019 Active [place] Powder as directed Active multivitamin Multiple Vitamins orally once a day ingris juice supplement, clove supplement Active HYDROmorphone Hydrochloride 4 mg 1-2 tabs orally Q4-6H prn pain (max 4 1/2 per day; hold within 4H of planned sleep); Duration: 28 days ICD-10: G89.29 (auth as per 08/12/24 visit) 09/02/2024 Active cyclobenzaprine 10 mg 1 tab(s) orally 3 times a day Active sucralfate 1 g/10 mL 10 mL orally 4 times a day (before meals and at bedtime) Active topiramate 25 mg 1 tab orally 2 times a day Active [place] OTC, as directed Active HYDROmorphone Hydrochloride 4 mg 1-2 tabs orally Q4-6H prn pain (max 4 1/2 per day; hold within 4H of planned sleep); Duration: 28 days Do not fill prior to 09/27/24. ICD-10: G89.29 08/12/2024 Active Slo-Niacin 500 mg orally as directed Active omeprazole 40 mg 1 cap orally once a day Active Plavix 75 mg 1 tab(s) orally once a day; Duration: 30 day(s) Active Diclofenac Sodium Topical 1% 4 grams applied topically Q6H prn pain; Duration: 30 days Active [place]-3 Active buPROPion 150 mg/24 hours 1 tab orally once a day (in the morning) Active aspirin 81 mg 1 tab orally once a day Active atenolol 100 mg 1 tab orally once a day Active Aleve sodium 220 mg 2 caps orally 1 X PRN Active Wixela Inhub 100 mcg-50 mcg 1 INH inhaled 2 times a day; Duration: 30 day(s) 09/11/2023 Active ashwagandha as directed Active Social History AUDIT-C (Standard) Question Answer Notes Did you have a drink containing alcohol in the p ast year? No Points 0 Interpretation Negative Problems Problem Type SNOMED Code ICD Code Onset Dates Problem Status W/U Status Risk Notes Problem Solitary sacroiliitis (426294803) Sacroiliitis, not elsewhere classified (M46.1) Active confirmed Problem Low back pain (358920119) Low back pain (M54.5) Active confirmed Problem Lumbosacral spondylosis without myelopathy (38182431) Spondylosis without myelopathy or radiculopathy, lumbar region (M47.816) Active confirmed Problem High risk drug monitoring status (024157117) half-way (current) use of opiate analgesic (Z79.891) Active confirmed Problem Anxiety disorder (557970641) Other specified anxiety disorders (F41.8) Active confirmed Problem Obstructive sleep apnea syndrome (disorder) (54844145) Obstructive sleep apnea (adult) (pediatric) (G47.33) Active confirmed Problem Chronic pain (08116324) Other chronic pain (G89.29) Active confirmed Problem Essential hypertension (34550709) Essential (primary) hypertension (I10) Active confirmed Problem Pain in thoracic spine (438085373) Pain in thoracic spine (M54.6) Active confirmed Problem Post-laminectomy syndrome (15713012) Postlaminectomy syndrome, not elsewhere classified (M96.1) Active confirmed Problem Long-term current use of drug therapy (183776308) 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) Active confirmed Problem Spinal stenosis of lumbar region (07090673) Spinal stenosis, lumbar region without neurogenic claudication (M48.061) Active confirmed Problem Neurogenic claudication (263169404) Spinal stenosis, lumbar region with neurogenic claudication (M48.062) Active confirmed Problem Muscle pain (23681768) Myalgia, other site (M79.18) Active confirmed Problem Pain in lumbar spine (582392276) Vertebrogenic low back pain (M54.51) Active confirmed Vital Signs Temperature 97.4 degrees Fahrenheit 08/12/2024 Blood pressure diastolic 77 mm Hg 08/12/2024 Oximetry 92 % 08/12/2024 Height 70 in 08/12/2024 Blood pressure systolic 153 mm Hg 08/12/2024 Weight 261 lbs 08/12/2024 BMI 37.45 kg/m2 08/12/2024 Encounters Encounter Location Date Provider Diagnosis [facility] [address] [place], [place] [id number] 12/25/2023 Lucero Villegas Pain in thoracic spine M54.6 ; Other chronic pain G89.29 and Obstructive sleep apnea (adult) (pediatric) G47.33 [facility] [email or web address] [place], [place] [id number] 02/19/2024 Emil Gamboa Pain in thoracic spine M54.6 ; Other chronic pain G89.29 ; Obstructive sleep apnea (adult) (pediatric) G47.33 and half-way (current) use of opiate analgesic Z79.891 [facility] [email or web address] [place], [place] [id number] 04/15/2024 Emil Gamboa Pain in thoracic spine M54.6 ; Other chronic pain G89.29 and Obstructive sleep apnea (adult) (pediatric) G47.33 [facility] [email or web address] [place], [place] [id number] 06/17/2024 Emil Gamboa Pain in thoracic spine M54.6 ; Other chronic pain G89.29 ; Essential (primary) hypertension I10 and Obstructive sleep apnea (adult) (pediatric) G47.33 [facility] [email or web address] [place], [place] [id number] 08/12/2024 Emil Gamboa Pain in thoracic spine M54.6 ; Other chronic pain G89.29 ; Essential (primary) hypertension I10 and Obstructive sleep apnea (adult) (pediatric) G47.33 [facility] [email or web address] [place], [place] [id number] 01/22/2024 Emil Gamboa [facility] [address] [place], [place] [id number] 03/18/2024 Emil Cooper [facility] [address] [place], [place] [id number] 05/13/2024 Emil Gamboa [facility] [email or web address] [place], [place] [id number] 07/15/2024 Emil Gamboa [facility] [email or web address] [place], [place] [id number] 09/02/2024 Emil Gamboa Assessments Encounter Date Diagnosis (ICD Code) Assessment Notes Treatment Notes Treatment Clinical Notes Section Notes 06/17/2024 Pain in thoracic spine (ICD-10 - M54.6) History of chronic axial thoracic spine pain. Continued pain s/p thoracic surgery (T6-10 fusion with multiple laminectomies). 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 Plan to continue oral opioid medication management. 08/12/2024 Pain in thoracic spine (ICD-10 - M54.6) History of chronic axial thoracic spine pain. 02/19/2024 Other chronic pain (ICD-10 - G89.29) Patient with history of benefit received with opioid rotation between hydromorphone, hydrocodone, and oxycodone. Patient would like to taper from hydromorphone to hydrocodone now that his TSP fusion surgery is completed. Plan to continue oral opioid medication management with opioid rotation to hydrocodone. 02/19/2024 Pain in thoracic spine (ICD-10 - M54.6) History of chronic axial thoracic spine pain. Plan to obtain Operative Note from 01/2024 TSP fusion surgery at [facility] Dr. Vargas. 04/15/2024 Other chronic pain (ICD-10 - G89.29) Patient reports good pain control with use of the [place] 10/325 mg tablets. He has tapered to 6 per day since his TSP surgery and would like his prescription renewed as such. Plan to continue oral opioid medication management with requested taper. 04/15/2024 Pain in thoracic spine (ICD-10 - M54.6) History of chronic axial thoracic spine pain. 12/25/2023 Pain in thoracic spine (ICD-10 - M54.6) Dr. Vargas's notes reviewed. History of chronic axial thoracic spine pain. Patient reports he is tentatively scheduled for a lower thoracic spinal surgery with Dr. Vargas on 01/12/2024. 02/19/2024 Obstructive sleep apnea (adult) (pediatric) (ICD-10 - G47.33) Patient continues to report strict nightly use of his CPAP device. 12/25/2023 Obstructive sleep apnea (adult) (pediatric) (ICD-10 [...] medication management with opioid rotation to hydromorphone. 04/15/2024 Obstructive sleep apnea (adult) (pediatric) (ICD-10 - G47.33) Patient continues to report strict nightly use of his CPAP device. 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 He would like to transition back to hydromorphone as previously taken. Plan to continue oral opioid medication at today's visit with opioid rotation from hydrocodone to hydromorphone. 06/17/2024 Essential (primary) hypertension (ICD-10 - I10) Education sheet given at today's visit; patient to address with PCP. 06/17/2024 Obstructive sleep apnea (adult) (pediatric) (ICD-10 - G47.33) Patient continues to report strict nightly use of his CPAP device. 08/12/2024 Essential (primary) hypertension (ICD-10 - I10) Education sheet given at today's visit; patient to address with PCP. 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 This places the [facility] in the [facility] ultra high risk category for total daily opioid usage. 2022 opioid (OUD) risk tool score = 2. This places the patient in the low risk category. Plan urine toxicology screen today to monitor for presence of any unprescribed or illicit controlled substance(s), as well as prescribed hydromorphone. 08/12/2024 Obstructive sleep apnea (adult) (pediatric) (ICD-10 - G47.33) Patient continues to report strict nightly use of his CPAP device. 12/25/2023 Other Due to the [facility] inability to store more than 1 month of opioid prescriptions at a time, remaining eRx will be sent in 28 days. 04/15/2024 Other Due to the [facility]'s inability to store more than 1 month of opioid prescriptions at a time, remaining eRx will be sent in 28 days. The service was provided by ZIYAD Ricci, as part of the ongoing care plan established by Emil Gamboa MD, who was present in the office for direct supervision during the encounter. 06/17/2024 Other Due to the [facility]'s inability to store more than 1 month of opioid prescriptions at a time, remaining eRx will be sent in 28 days. The service was provided by ZIYAD Ricci, as part of the ongoing care plan established by Emil Gamboa MD, who was present in the office for direct supervision during the encounter. 02/19/2024 Other Due to the [facility]'s inability to store more than 1 month of opioid prescriptions at a time, remaining eRx will be sent in 28 days. The service was provided by ZIYAD Ricci, as part of the ongoing care plan established by Emil Gamboa MD, who was present in the office for direct supervision during the encounter. 08/12/2024 Other The service was provided by ZIYAD Ricci, as part of the ongoing care plan established by Emil Gamboa MD, who was present in the office for direct supervision during the encounter. Patient was provided with a letter at today's visit informing patient that this clinic is closing due to Dr. Gamboa's care home; see scanned document. Terminal prescriptions were given to the patient along with tapering instructions. Due to the [facility]'s inability to store more than 1 month of opioid prescriptions at a time, patient's remaining eRx will be sent in 28 days or less; printed prescription given to patient to fill in 56 days. Plan Of Treatment No Information Insurance Providers Payer Name Payer Address Payer Phone Subscriber Number Group Number Insured Name Patient Relationship to Insured Coverage Start Date Coverage End Date [employer] [address] [place] [id number] AlexyLeon guillaume Self - patient is the insured Medical (General) History Medical History History ICD Code Chronic pain [...] 2015 L4-L5 fusion / fixation, performed in [place], [place] by Dr. Mondragon, 2016 Right shoulder replacement, performed at [place], [place] by Dr. Madison, 12/10/17 Upper and lower GI, performed at [facility] by Dr. Duncan, 05/2018 Multiple dental extractions, performed at [facility], 04/05/19-05/09/19 Upper GI with biopies, performed at [facility], 06/17/23 Fusion, thoracic T6-10, performed at [facility] by Dr. Vargas, 01/13/24 Hospitalization History Reason Date(Month/Year) ER visit for tick fever, 07/2017
--- NOTE | 2024-12-07 07:03 | CT_ITS ---
WS: [id number] CT HEAD NONCONTRAST HISTORY: Headaches, generalized body aches. TECHNIQUE: Contiguous axial imaging performed through the brain. Bone and soft tissue windows. Sagittal and coronal reformats reviewed. All CT scans at [facility] use at least one of these dose optimization techniques: automated exposure control; mA and/or kV adjustment per patient size (includes targeted exams where dose is matched to clinical indication); or iterative reconstruction. DLP: 1208.59 mGy.cm COMPARISON: 11/27/2021 No acute intracranial hemorrhage, midline shift or mass effect. Mild atrophy and mild small vessel disease. Similar to the prior study. No large territory infarct. Ventricles: Normal size with no hydrocephalus. No inferior displacement of the cerebellar tonsils. Paranasal sinuses: As visualized are clear. Mastoid air cells: Well pneumatized. Calvarium and scalp: Skull is intact with no soft tissue edema or swelling. CT/CT head wo con* [id number] IMPRESSION: 1. No acute intracranial hemorrhage or edema. 2. Stable noncontrast head CT since 11/27/2021. 3. Mild atrophy and mild small vessel disease.
--- NOTE | 2024-12-07 07:03 | XR_ITS ---
WS: [id number] PORTABLE CHEST HISTORY: fever COMPARISON: 05/28/2023 Minimal atelectasis at the LEFT lung base. No pneumonia. No areas of consolidation. No pleural effusion or pneumothorax. Cardiac size: Normal. Mediastinum/Aorta: Normal mediastinum. Prior RIGHT shoulder replacement. Midthoracic spine fusion hardware. XR/XR chest 1V portable [id number] IMPRESSION: 1. No pneumonia. 2. Subsegmental atelectasis LEFT lung base.
--- NOTE | 2024-12-07 07:03 | CT_ITS ---
WS: [id number] CT ABDOMEN AND PELVIS WITH CONTRAST HISTORY: abd pain TECHNIQUE: Imaging performed of the abdomen and pelvis with IV contrast. Single phase imaging of the abdomen. Coronal and sagittal reformats are submitted. All CT scans at [facility] use at least one of these dose optimization techniques: automated exposure control; mA and/or kV adjustment per patient size (includes targeted exams where dose is matched to clinical indication); or iterative reconstruction. IV CONTRAST: Omnipaque 350; 100 mL IV. Oral contrast: No DLP: 1049.96 mGy.cm COMPARISON: 05/28/2023 Lower thorax: Lung bases are clear. Heart is normal size. Small hiatal hernia. Liver/biliary system: Normal size with no intrahepatic dilatation. Gallbladder: Normal. No gallstones or wall thickening. No pericholecystic fluid. Pancreas: Normal size pancreas and pancreatic duct. No adjacent inflammation. Spleen: Normal size spleen. No mass or infarct. Adrenal glands: Normal. Right kidney: No renal obstruction. 2 low-attenuation masses in the posterior kidney with the largest measuring 1.6 cm consistent with small cyst. No solid mass. No renal obstruction. No ureteral obstruction. Left kidney: Normal. Aorta: Mild atherosclerosis with no aneurysm. Mild atherosclerotic plaque in the mesenteric arteries. No obstruction. Lymphadenopathy: None. Free fluid: None. GI tract: Nondistended stomach. No small bowel obstruction. No small bowel wall thickening. Normal appendix. Mild changes of diffuse submucosal edema there is mild mucosal enhancement with submucosal edema. Additional moderate diverticular disease of the sigmoid colon. No evidence for acute diverticulitis. Abdominal wall: Unremarkable abdominal wall. No hernia. Pelvis: Urinary bladder is minimally distended. No intraluminal filling defect. Heterogeneous slightly enlarged prostate gland. Bones: Fusion hardware noted in the lower thoracic spine and at L4-5. CT/CT abdomen pelvis w con* [id number] IMPRESSION: 1. Diffuse mild changes of submucosal edema and mucosal enhancement. Most typi violet for infectious colitis. Less likely ischemia or inflammatory colitis. 2. No GI tract obstruction. 3. Moderate diverticular disease in the sigmoid colon without evidence for acu te diverticulitis. 4. No renal obstruction. 5. No free air or ascites.
--- NOTE | 2024-12-07 07:09 | ED_ITS ---
HPI - Headache 2 General: Chief Complaint: Headache Stated Complaint: H/A (3xdays) / yellow diarhea Time Seen by Provider: 12/07/24 06:57 Source: patient Mode of arrival: ambulatory Limitations: no limitations History of Present Illness: 69-year-old male states that over the la 3 days he has been having some generalized bodyaches mild headache low-grade fevers along with abdominal pain nausea vomiting. States he is had subjective fever has not checked his temperature. He states he just has felt ill. He denies any neck stiffness denies any cough or dysuria. Associated symptoms: Reports fever(s), nausea and vomiting; Deny chest pain or rash Related Data Home Medications ?Medication ?Instructions ?Recorded ?Confirmed diclofenac sodium 1 % topical gel 2 g topical BID PRN Muscle Pain 03/10/23 09/14/24 atenolol 100 mg tablet 50 mg PO BEDTIME 06/17/23 tamsulosin 0.4 mg capsule 0.4 mg PO DAILY 01/09/2401/29 triamterene 75 1 tab PO DAILY 01/09/2409/05 025 mg-hydrochlorothiazide 50 mg tablet bupropion HCl 75 mg tablet 75 mg PO DAILY 09/14/2401/29 hydromorphone 4 mg tablet 4 mg PO Q6H PRN 09/14/2401/29 (Dilaudid) Previous Rx's ?Medication ?Instructions ?Recorded ammonium lactate 12 % lotion 1 applic topical BID #400 grams 03/10/23 AFO to the right #1 ea 09/15/23 Orthopedic shoe package #1 ea 09/15/23 modify AFO to left to non #1 ea 03/03/24 articulating magnesium citrate 300 ml PO DAILY PRN constipa tion 06/08/24 #296 mL pantoprazole 40 mg tablet,delayed 40 mg PO BID 30 days #60 tabs 07/07/24 release sucralfate 100 mg/mL oral 10 ml PO BID 6 weeks #840 mL 07/07/24 suspension cyclobenzaprine 10 mg tablet 10 mg PO TID PRN muscle s pasm 30 07/20/24 days #90 tabs amoxicillin 500 mg-potassium 1 tab PO BID #14 tabs 06/01 clavulanate 125 mg tablet (Augmentin) Allergies Allergy/AdvReac Type Severity Reaction Status Date / Time [id number] Reductase Allergy Unknown Verified 09/14/24 12:42 Inhibitor Review of Systems 2 Const: Reports: fever(s), chills and body aches; Denies: change in appetite Eyes: Denies: blurry vision or eye discomfort ENMT: Denies: throat pain or dental pain Card: Denies: chest pain Resp: Denies: dyspnea GI: Reports: abdominal pain, nausea and vomiting; Denies: diarrhea : Denies: dysuria Musc: Denies: neck pain or back pain Skin/Breast: Denies: rash Neuro: Reports: headache(s) PFSH ED 2 PFSH: Medical History No pertinent past medical history Social History (Updated 09/14/24 @ 12:48 by Holly Day LPN) Smoking and tobacco/nicotine status: never used tobacco/nicotine Quit status (tobacco/nicotine): has quit using Substance/Drug Use: never Physical Exam 2 Const: COMMON NORMALS: no acute distress, patient oriented x3 and healthy appearing HENMT: COMMON NORMALS: normocephalic and atraumatic HEAD & SCALP: n ormocephalic and atraumatic Eye: COMMON NORMALS: Equal, round and reactive pupils present and EOMs intact bilaterally PUPIL: Yes Equal, round and reactive pupils present Neck/C-Spine: COMMON NORMALS: full ROM and supple Chest: COMMONS NORMALS: normal inspection of the chest and normal palpation of entire chest wall Resp: COMMON NORMALS: normal respiratory effort, No retractions, No use of accessory muscles and clear to auscultation bilaterally AUSCULTATION: clear to auscultation bilaterally Cardio: COMMON NORMALS: regular rate, regular rhythm and No murmurs present (Cardio) RATE: regular rate RHYTHM: regular rhythm GI: COMMON NORMALS: Normal to inspection, nondistended, normoactive bowel sounds present, Soft to palpation, non-tender and no masses PALPATION: Yes Soft to palpation Extremity: COMMON NORMALS: normal to inspection and full ROM Neuro: COMMON NORMALS: patient oriented x3, moves all extremities and no focal motor deficits Psych: COMMON NORMALS: mental status grossly normal, Normal thought process present and cooperative THOUGHT PROCESS: Normal thought process present Skin: COMMON NORMALS: no rashes or lesions noted and no wounds GENERAL SKIN EXAM: no rashes or lesions noted Course 2 Vital Signs: Vital signs: Vital Signs Temperature 99.4 F 12/07/24 06:58 Pulse Rate 77 12/07/24 06:58 Respiratory Rate 15 12/07/24 06:58 Blood Pressure 116/65 12/07/24 08:00 Pulse Oximetry 94 12/07/24 08:25 Oxygen Delivery Me thod Room Air, Nasal C annula 12/07/24 06:58 MDM - Headache Medical Decision Making Patient presents here with abdominal pain along with headache. Patient's head CT here is normal blood work is normal including normal white count he is no signs of meningitis no signs of subarachnoid hemorrhage. Patient does have a colitis could be causing his abdominal pain we will start him on Augmentin had no vomiting he is to follow-up with his PCP return if worsening he understands agrees to plan. Medical Records I reviewed the patient's medical records. Lab Data I reviewed the patient's lab results. 12/07/24 07:11 12/07/24 07:11 Radiology Impressions Abdomen/Pelvis CT 12/07/24 07:03 IMPRESSION: 1. Diffuse mild changes of submucosal edema and mucosal enhancement. Most typical for infectious colitis. Less likely ischemia or inflammatory colitis. 2. No GI tract obstruction. 3. Moderate diverticular disease in the sigmoid colon without evidence for acute diverticulitis. 4. No renal obstruction. 5. No free air or ascites. Chest X-Ray 12/07/24 07:03 IMPRESSION: 1. No pneumonia. 2. Subsegmental atelectasis LEFT lung base. Head CT 12/07/24 07:03 IMPRESSION: 1. No acute intracranial hemorrhage or edema. 2. Stable noncontrast head CT since 11/27/2021. 3. Mild atrophy and mild small vessel disease. Laboratory Results WBC 7.76 10^3/uL (3.29-11.43) 12/07/24 07:11 RBC 4.87 10^6/uL (3.85-5.65) 12/07/24 07:11 Hgb 15.10 g/dL (11.27-16.99) 12/07/24 07:11 Hct 43.4 % (37-53) 12/07/24 07:11 MCV 89.1 fl (82-101) 12/07/24 07:11 MCH 31.0 pg (27-33) 12/07/24 07:11 MCHC 34.8 g/dL (30-55) 12/07/24 07:11 RDW 12.1 % (12.1-15.1) 12/07/24 07:11 Plt Count 207 10^3/cmm (157-399) 12/07/24 07:11 MPV 9.6 fL (7.4-10.4) 12/07/24 07:11 Neut % (Auto) 75.8 % 12/07/24 07:11 Lymph % (Auto) 12.2 % 12/07/24 07:11 [place] % (Auto) 10.1 % 12/07/24 07:11 Eos % (Auto) 1.4 % 12/07/24 07:11 Baso % (Auto) 0.4 % 12/07/24 07:11 Neut # (Auto) 5.88 10^3/uL (1.8-7.7) 12/07/24 07:11 Lymph # (Auto) 1.0 10^3/uL (0.8-4.8) 12/07/24 07:11 [place] # (Auto) 0.8 10^3/uL (0.2-0.9) 12/07/24 07:11 Eos # (Auto) 0.1 10^3/uL (0.0-0.8) 12/07/24 07:11 Baso # (Auto) 0.0 10^3/uL (0.0-0.1) 12/07/24 07:11 Nucleated RBC % (auto) 0 % 12/07/24 07:11 Nucleated RBCs # 0.0 /100WBC 12/07/24 07:11 Sodium 134 mmol/L (136-145) L 12/07/24 07:11 Potassium 3.7 mmol/L (3.5-5.1) 12/07/24 07:11 Chloride 100 mmol/L (98-107) 12/07/24 07:11 Carbon Dioxide 23 mmol/L (22-29) 12/07/24 07:11 Anion Gap 14.7 (5-19) 12/07/24 07:11 BUN 13 mg/dL (8-23) 12/07/24 07:11 Creatinine 1.0 mg/dL (0.7-1.2) 12/07/24 07:11 GFR Calculation 74.5 mL/min (90-130) L 12/07/24 07:11 Glucose 117 mg/dL (65-115) H 12/07/24 07:11 Calculated Osmolality 279 mOsm/kg (285-295) L 12/07/24 07:11 Calcium 8.7 mg/dL (8.5-10.5) 12/07/24 07:11 Total Bilirubin 1.2 mg/dL (0.15-1.2) 12/07/24 07:11 AST 14 U/L (0-40) 12/07/24 07:11 ALT 16 U/L (0-41) 12/07/24 07:11 Alkaline Phosphatase 75 U/L (40-130) 12/07/24 07:11 Total Protein 7.1 g/dL (6.6-8.7) 12/07/24 07:11 Albumin 4.2 g/dL (3.5-5.2) 12/07/24 07:11 Globulin 2.9 g/dL (1.3-4.6) 12/07/24 07:11 Lipase 27 U/L (13-60) 12/07/24 07:11 Urine Color Dark yellow (Yellow) A 12/07/24 07:16 Urine Appearance Clear (CLEAR) 12/07/24 07:16 Urine pH 5.5 (5-7) 12/07/24 07:16 Ur Specific [place] 1.026 (1.005-1.030) 12/07/24 07:16 Urine Protein 2+ (Negative) A 12/07/24 07:16 Urine Glucose (UA) Negative (Normal) 12/07/24 07:16 Urine Ketones Trace (Negative) 12/07/24 07:16 Urine Blood Negative (Negative) 12/07/24 07:16 Urine Nitrate Negative (Negative) 12/07/24 07:16 Urine Bilirubin Negative (Negative) 12/07/24 07:16 Urine Urobilinogen 1.0 mg/dL (Negative) 12/07/24 07:16 Ur Leukocyte Esterase Trace (Negative) A 12/07/24 07:16 Urine RBC 0-2 /hpf (0-2) 12/07/24 07:16 Urine WBC 0-5 /hpf (0-5) 12/07/24 07:16 Ur Squamous Epith Cells 0-5 /hpf (0-5) 12/07/24 07:16 Amorphous Sediment Not Reportable 12/07/24 07:16 Urine Bacteria None seen /hpf (NONE) 12/07/24 07:16 Hyaline Casts 0.81 /lpf 12/07/24 07:16 All radiology interpretation(s) finalized by discharge Discharge Plan Discharge Patient Disposition: Home Clinical Impression: Colitis, Headache Condition: Stable Prescriptions: New amoxicillin-pot clavulanate [Augmentin] 500-125 mg tablet 1 tab PO BID Qty: 14 0RF No Action diclofenac sodium 1 % gel 2 g topical BID PRN (Reason: Muscle Pain) ammonium lactate 12 % lotion 1 applic topical BID Qty: 400 3RF Rx Instructions: Apply to feet for dry skin tamsulosin 0.4 mg capsule 0.4 mg PO DAILY triamterene-hydrochlorothiazid 75-50 mg tablet 1 tab PO DAILY cyclobenzaprine 10 mg tablet 10 mg PO TID PRN (Reason: muscle spasm) 30 Days Qty: 90 5RF magnesium citrate Solution 300 ml PO DAILY PRN (Reason: constipation) Qty: 296 2RF Rx Instructions: take one 10oz bottle at 12:00PM and one at 20:00PM (ESMER) Orthopedic shoe package See Rx Instructions .Route .MEDSUPPLY Qty: 1 0RF Rx Instructions: As directed made by the sivakumar sunshine (ESMER) AFO to the right See Rx Instructions .Route .MEDSUPPLY Qty: 1 0RF Rx Instructions: made by mario and aaliyah pantoprazole 40 mg tablet,delayed release (DR/EC) 40 mg PO BID 30 Days Qty: 60 11RF sucralfate 100 mg/mL suspension 10 ml PO BID 42 Days Qty: 840 0RF hydromorphone [Dilaudid] 4 mg tablet 4 mg PO Q6H PRN bupropion HCl 75 mg tablet 75 mg PO DAILY (ESMER) Non Articulating or Articulating to the Right and Non Articulating AFO to the Left See Rx Instructions .Route .MEDSUPPLY Qty: 1 0RF Rx Instructions: As directed by Ching Sunshine atenolol 100 mg tablet 50 mg PO BEDTIME Discharge Orders: Discharge ED (Routine); Ordered 12/07/24 Ordered By: Edwin Black Referrals: Shaye Siddiqui MD [Primary Care Provider, Family Practice] - 4-7 days Discharge Diet: Advance as tolerated Discharge Activity: Resume usual activity Patient Instructions: Headache, Colitis (ED) Print Language: Martiniquais Coding Level of Care Code ED Electroencephalographic Technician for Scott Nam
[2024-12-07 07:18] LABS: Hematocrit 43.4 % (37-53); Hemoglobin 15.10 g/dL (11.27-16.99); Mean Corpuscular HGB Conc 34.8 g/dL (30-55); Mean Corpuscular Hemoglobin 31.0 pg (27-33); Mean Corpuscular Volume 89.1 fl (82-101); Nucleated Red Blood Cells % 0 %; Platelet Count 207 10^3/cmm (157-399); Red Blood Count 4.87 10^6/uL (3.85-5.65); White Blood Count 7.76 10^3/uL (3.29-11.43)
[2024-12-07] MEDS: ondansetron 2 mg/ML SDV 2 mL 4 MG IVP (07:21)
[2024-12-07] MEDS: HYDROmorphone 0.5 MG/0.5 ML INJ 1 MG IVP (07:21)
[2024-12-07 07:38] LABS: Alanine Aminotransferase 16 U/L (0-41); Albumin Level 4.2 g/dL (3.5-5.2); Alkaline Phosphatase 75 U/L (40-130); Anion Gap 14.7 (5-19); Aspartate Amino Transferase 14 U/L (0-40); Blood Urea Nitrogen 13 mg/dL (8-23); Calcium 8.7 mg/dL (8.5-10.5); Carbon Dioxide 23 mmol/L (22-29); Chloride 100 mmol/L (98-107); Globulin 2.9 g/dL (1.3-4.6); Glucose 117 mg/dL (65-115); Lipase 27 U/L (13-60); Osmolality Calculated 279 mOsm/kg (285-295); Potassium 3.7 mmol/L (3.5-5.1); Sodium 134 mmol/L (136-145); Total Protein 7.1 g/dL (6.6-8.7)
[2024-12-07 07:44] LABS: Glucose Urine UA Negative (Normal); Nitrate Urine Negative (Negative); Specific Gravity, Urine 1.026 (1.005-1.030)
[2024-12-07 07:47] LABS: Add Urine Microscopic? YES
[2024-12-13 17:56] LABS: RMSF IGG NOT DETECTED; RMSF IGM NOT DETECTED
== END 2024-12-07 09:02 | disposition home or self-care (01) ==
PROVIDERS: Emergency Provider Emergency Medicine; PCP Family Medicine
DX: K52.9 Noninfective gastroenteritis and colitis, unspecified (principal); R51.9 Headache, unspecified
CPT/HCPCS: 70450; 71045; 74177; 80053; 81001; 83690; 85025; 86618; 86666; 86757; 96361; 96374; 96375; 99285; J1171; J2405; J7030

== ENCOUNTER → 2025-01-11 13:11 | Outpatient (BNVA) | payer OTHER, SELFPAY | PROVIDERS: PCP Family Medicine; Visit Provider Orthopaedic Surgery | DX: M54.9 Dorsalgia, unspecified (principal); M43.24 Fusion of spine, thoracic region | CPT/HCPCS: 72072; 99213 ==

== ENCOUNTER → 2025-02-25 10:06 | Outpatient (BNVA) | payer OTHER, SELFPAY | PROVIDERS: Visit Provider Nurse Practitioner Family | DX: L57.8 Other skin changes due to chronic exposure to nonionizing radiation (principal); L81.4 Other melanin hyperpigmentation; L72.0 Epidermal cyst; D18.01 Hemangioma of skin and subcutaneous tissue; L57.0 Actinic keratosis | CPT/HCPCS: 17000; 99213 ==

== ENCOUNTER → 2025-03-18 09:02 | Outpatient (BNVA) | payer OTHER, SELFPAY | PROVIDERS: PCP Family Medicine; Visit Provider Internal Medicine Cardiovascular Disease | DX: I10 Essential (primary) hypertension (principal); R06.02 Shortness of breath; Z87.891 Personal history of nicotine dependence | CPT/HCPCS: 99214 ==